=== PATIENT | male | born 1950 | race Caucasian/White ===

== ENCOUNTER 2016-11-22 09:28 | Inpatient (IN) | payer MEDICARE ==
[~2016-11-22] VITALS: Ht 177.8 cm; Wt 65.3 kg
[2016-11-22] VITALS (9 sets, daily range): BP systolic 120–196; BP diastolic 60–95; PULSE 96–125; RESP 15–24; TEMP 98.2–102.6; O2SAT 85–99
[~2016-11-22 09:28] MED LIST: ALLO100T PO; ASPI81TA19 PO; CALC668T PO; LEVO75TA3 PO; METO50TA PO; NIFE60TA58 PO; OXYC-396 PO; PHOSSOL5 PO; REST15CA PO; TRAM50TA PO
[2016-11-22] MEDS ORDERED: HYDROmorphone HCL PF 1 MG/ML VIAL IV PUSH ONE (12:00)
[2016-11-22] MEDS ORDERED: SODIUM CHLORIDE 0.9% FLUSH 5 ML FLUSH IVF PRN ×2 (12:00→15:45)
[2016-11-22] MEDS ORDERED: SODIUM CHLOR 0.9% 1000 ML INJ 1,000 ML IV ONE ×3 (12:00→12:10)
[2016-11-22] MEDS ORDERED: ONDANSETRON HCL 4 MG/2 ML VIAL IVP ONE (12:00)
[2016-11-22 12:05] LABS: AUTOMATED NEUTROPHIL # 18.9 TH/MM3 (1.8-7.7); BASOPHIL # 0.1 TH/MM3 (0-0.2); BASOPHIL % 0.4 % (0.0-2.0); EOSINOPHIL % 0.1 % (0.0-4.0); HEMATOCRIT 33.2 % (39.0-51.0); HEMO FLAGS DIFF FINAL; LYMPH % 2.3 % (9.0-44.0); LYMPHOCYTE # 0.5 TH/MM3 (1.0-4.8); MEAN CELL VOLUME 92.1 FL (80.0-100.0); MEAN CORPUSCULAR HEMOGLOBIN 29.4 PG (27.0-34.0); MEAN CORPUSCULAR HGB CONC 31.9 % (32.0-36.0); NEUT % 93.2 % (16.0-70.0); PLATELET COUNT 175 TH/MM3 (150-450); RED CELL DISTRIBUTION WIDTH 20.8 % (11.6-17.2); WHITE BLOOD COUNT 20.3 TH/MM3 (4.0-11.0)
[2016-11-22] MEDS ORDERED: SODIUM CHLOR 0.9% 1000 ML INJ 100 ML IV ONE (12:10)
[2016-11-22] MEDS ORDERED: PIPERACIL-TAZO 4.5 GM PREMIX 100 ML IV STA (12:11)
[2016-11-22] MEDS ORDERED: VANCOMYCIN INJ 1,000 MG in SODIUM CHLOR 0.9% 250 ML INJ 250 ML IV STA (12:11)
[2016-11-22 12:30] LABS: ALKALINE PHOSPHATASE 90 U/L (45-117); TOTAL BILIRUBIN ADULT 0.5 MG/DL (0.2-1.0)
[2016-11-22 12:32] LABS: ALT (GPT) 16 U/L (12-78); ANION GAP 10 MEQ/L (5-15); AST (GOT) 27 U/L (15-37); BICARBONATE 26.3 MEQ/L (21.0-32.0); BLOOD UREA NITROGEN 30 MG/DL (7-18); CHLORIDE 105 MEQ/L (98-107); GLOMERULAR FILTRATION RATE 12 ML/MIN (>89); SODIUM (NA) 141 MEQ/L (136-145)
[2016-11-22 12:34] LABS: POTASSIUM 5.9 MEQ/L (3.5-5.1)
--- NOTE | 2016-11-22 13:11 | PD ---
HPI Chief Complaint: GI Complaint Time Seen by Provider: 11:37 Travel History International Travel<30 days: No Contact w/Intl Traveler<30days: No Traveled to known affect area: No History of Present Illness HPI 65-year-old male with history of underlying vasculitis, end-stage renal disease on hemodialysis Friday//Friday here with complaint of abdominal pain. Patient states that every once in while his vasculitis flares up and he gets a burst of steroids. He was seen by his PCP approximately 2 weeks ago and placed on steroids. Patient had significant improvement. After the steroids finished he only had 2 days that were "normal" per family and for the last 3 days patient has not decompensated again. Family states that he does not appear well and has been somewhat confused. He has has had nausea, vomiting and has been unable to keep down his second course of steroids prescribed. No abnormal bowel movements. He notes generalized abdominal pain, nothing focal. No documented fevers. Patient has tunneled hemodialysis catheter, but states that he was instantly supposed to have this removed today as he is now having hemodialysis through his AV fistula. PFSH Past Medical History Hx Anticoagulant Therapy: Yes (ASA) Asthma: No Autoimmune Disease: No Blood Disorders: No Anxiety: Yes Depression: Yes Heart Rhythm Problems: No Cancer: No Cardiac Catheterization: Yes Cardiovascular Problems: Yes High Cholesterol: Yes Chest Pain: Yes Congestive Heart Failure: No COPD: No Cerebrovascular Accident: No Diabetes: No Dialysis: Yes (TRS) Diminished Hearing: No Endocrine: Yes (ESRD) Gastrointestinal Disorders: Yes (abd pain) GERD: No Genitourinary: Yes (renal failure, DIALYSIS ,,) Hepatitis: No Hiatal Hernia: No Hypertension: Yes Immune Disorder: No Kidney Stones: No Musculoskeletal: No Neurologic: No Psychiatric: No Reproductive: No Respiratory: No Myocardial Infarction: Yes Renal Failure: Yes (ESRD) Seizures: No Thyroid Disease: No Past Surgical History AICD: No Body Medical Devices: VAS CATH RIGHT CHEST left lower arm AV fistula Cholecystectomy: Yes Coronary Stent: Yes (3 STENTS 2004) Ear Surgery: No Endocrine Surgery: No Eye Surgery: No Genitourinary Surgery: No Gynecologic Surgery: No Joint Replacement: No Oral Surgery: No Pacemaker: No Thoracic Surgery: No Tonsillectomy: Yes Other Surgery: Yes (GALLBLADDER 25YRS AGO) Social History Alcohol Use: No Tobacco Use: No Substance Use: No Allergies-Medications (Allergen,Severity, Reaction): Coded Allergies: HMG-CoA Reductase Inhibitors (Verified Allergy, Severe, Joint Pain, ) Morphine (Verified Allergy, Severe, LOW BP, 09/09/16) Reported Meds & Prescriptions Reported Meds & Active Scripts Active Tramadol (Tramadol HCl) 50 Mg Tab 50 Mg PO Q6H PRN Reported Prednisone 10 Mg Tab 10 Mg PO DAILY Lyrica (Pregabalin) 50 Mg Cap 50 Mg PO BID Levothyroxine (Levothyroxine Sodium) 75 Mcg Tab 75 Mcg PO DAILY Metoprolol Tartrate 50 Mg Tab 50 Mg PO BID Nifedipine ER 24 HR (Nifedipine) 60 Mg Tab 60 Mg PO DAILY Calcium Acetate 668 Mg Tab 668 Mg PO DAILY Restoril (Temazepam) 15 Mg Cap 15 Mg PO HS PRN Aspir-Low (Aspirin) 81 Mg Tabdr 81 Mg PO DAILY Allopurinol 100 Mg Tab 100 Mg PO DAILY Oxycodone (Oxycodone HCl) 20 Mg Tab 20 Mg PO Q6H PRN Phoslyra Liq (Calcium Acetate (Phosphate Binder)) 667 Mg/5 Ml Soln 30 Ml PO TID take with each meal. Review of Systems Except as stated in HPI: all other systems reviewed are Neg Physical Exam Narrative GENERAL: Elderly male, ill-appearing in no acute distress SKIN: Warm and dry. HEAD: Normocephalic. EYES: No scleral icterus. No injection or drainage. ENT: Mucous membranes dry NECK: Supple CARDIOVASCULAR: Tachycardic with heart rates in the 120s to 130s. murmur RESPIRATORY: No accessory muscle use. Clear to auscultation. Breath sounds equal bilaterally. GASTROINTESTINAL: Abdomen soft, mild diffuse tenderness to palpation without rebound or guarding MUSCULOSKELETAL: Trace BLE edema. NEUROLOGICAL: Awake and alert. Motor grossly within normal limits. Normal speech. PSYCHIATRIC: Appropriate mood and affect; insight and judgment normal. Data Data Last Documented VS Vital Signs Date Time Temp Pulse Resp B/P Pulse Ox O2 Delivery O2 Flow Rate FiO2 11/22/16 13:42 92 Nasal Cannula 3 11/22/16 12:08 102.6 11/22/16 11:50 118 24 159/78 Orders Complete Blood Count With Diff (11/22/16 09:57) Comprehensive Metabolic Panel (11/22/16 09:57) Lipase (11/22/16 09:57) Lactic Acid Sepsis Protocol (11/22/16 11:57) Blood Culture (11/22/16 11:57) Chest, Single Ap (11/22/16 11:57) Sodium Chlor 0.9% 1000 Ml Inj (Ns 1000 M (11/22/16 12:00) Ct Abd/Pel W Iv Contrast(Rout) (11/22/16 11:57) Iv Access Insert/Monitor (11/22/16 11:57) Ecg Monitoring (11/22/16 11:57) Oximetry (11/22/16 11:57) Ondansetron Inj (Zofran Inj) (11/22/16 12:00) Sodium Chloride 0.9% Flush (Ns Flush) (11/22/16 12:00) Hydromorphone Pf Inj (Dilaudid Pf Inj) (11/22/16 12:00) Oral Contrast - Adult (11/22/16 12:03) Sodium Chlor 0.9% 1000 Ml Inj (Ns 1000 M (11/22/16 12:10) Sodium Chlor 0.9% 1000 Ml Inj (Ns 1000 M (11/22/16 12:10) Sodium Chlor 0.9% 1000 Ml Inj (Ns 1000 M (11/22/16 12:10) Vancomycin Inj (Vancomycin Inj) (11/22/16 12:11) Piperacil-Tazo 4.5 Gm Premix (Zosyn 4.5 (11/22/16 12:11) Consult Nephrology (11/22/16 ) Invasive Rad Dept Consult (11/22/16 ) Diatrizoate Liq ( Gastroview Liq) (11/22/16 13:51) Act Partial Throm Time (Ptt) (11/22/16 13:50) Prothrombin Time / Inr (Pt) (11/22/16 13:50) Admit Order (Ed Use Only) (11/22/16 14:23) Labs Laboratory Tests Test 11/22/16 11/22/16 11:40 12:20 White Blood Count 20.3 TH/MM3 Red Blood Count 3.60 MIL/MM3 Hemoglobin 10.6 GM/DL Hematocrit 33.2 % Mean Corpuscular Volume 92.1 FL Mean Corpuscular Hemoglobin 29.4 PG Mean Corpuscular Hemoglobin 31.9 % Concent Red Cell Distribution Width 20.8 % Platelet Count 175 TH/MM3 Mean Platelet Volume 9.4 FL Neutrophils (%) (Auto) 93.2 % Lymphocytes (%) (Auto) 2.3 % Monocytes (%) (Auto) 4.0 % Eosinophils (%) (Auto) 0.1 % Basophils (%) (Auto) 0.4 % Neutrophils # (Auto) 18.9 TH/MM3 Lymphocytes # (Auto) 0.5 TH/MM3 Monocytes # (Auto) 0.8 TH/MM3 Eosinophils # (Auto) 0.0 TH/MM3 Basophils # (Auto) 0.1 TH/MM3 CBC Comment DIFF FINAL Differential Comment Sodium Level 141 MEQ/L Potassium Level 5.9 MEQ/L Chloride Level 105 MEQ/L Carbon Dioxide Level 26.3 MEQ/L Anion Gap 10 MEQ/L Blood Urea Nitrogen 30 MG/DL Creatinine 4.86 MG/DL Estimat Glomerular Filtration 12 ML/MIN Rate Random Glucose 83 MG/DL Calcium Level 9.3 MG/DL Total Bilirubin 0.5 MG/DL Aspartate Amino Transf 27 U/L (AST/SGOT) Alanine Aminotransferase 16 U/L (ALT/SGPT) Alkaline Phosphatase 90 U/L Total Protein 7.3 GM/DL Albumin 3.0 GM/DL Lipase 119 U/L Lactic Acid Level 3.9 mmol/L MDM Medical Decision Making Medical Screen Exam Complete: Yes Emergency Medical Condition: Yes Medical Record Reviewed: Yes Differential Diagnosis 65-year-old male with history of underlying vasculitis, end-stage renal disease on hemodialysis Friday//Friday here with complaint of abdominal pain , generalized weakness. Differential includes line infection, bacteremia, sepsis, dehydration, electrolyte abnormality, gastritis, pancreatitis, hepatobiliary pathology, appendicitis, colitis, vasculitis flare, less likely mesenteric ischemia. Patient is immunosuppressed given his underlying vasculitis and steroid use. Narrative Course Patient placed on monitor, IV established and blood obtained. Patient noted to be febrile by a rectal temp, tachycardic. He was given 30 mg/kg normal saline bolus in covered empirically with vancomycin, Zosyn. Zofran and Dilaudid for symptom control. CBC, CMP, lipase, lactate, blood cultures obtained and notable for leukocytosis with 20.3, hemoglobin 10.6. BUN 30/creatinine 4.86 consistent with his known end-stage renal disease. Potassium slightly elevated at 5.9 though this was a hemolyzed specimen. Lactate elevated at 3.9. Patient does not make urine and therefore urinalysis was not obtained. I spoke with his tire retreader, Dr. Robertson, for notification the patient will likely be admitted. Invasive radiology was consulted to remove patient's tunneled hemodialysis catheter. CT of the abdomen and pelvis remains pending at the time this dictation. Portable chest x-ray was obtained that by my read shows evidence of bilateral pneumonia, right greater than left. Patient will be admitted to Dr. Chang's service for further management. Critical Care Narrative Aggregate critical care time was 65 minutes. Time to perform other separately billable procedures was not included in the critical care time. My time did not include minutes spent treating any other patients simultaneously or on activities that did not directly contribute to the patient's treatment. The services I provided to this patient were to treat and/or prevent clinically significant deterioration that could result in: Cardiopulmonary decompensation, , disability I provided critical care services requiring my management, as noted below: Chart data review, documentation time, medication orders and management, vital sign assessments/reviewing monitor data, ordering and reviewing lab tests, ordering and interpreting/reviewing x-rays and diagnostic studies, care of the patient and discussion of the patient with the admitting physicians. Sepsis Criteria SIRS Criteria (2 or more): Temp > 100.9 or < 96.8, Heart rate over 90, WBC > 28414, < 4000 or > 10% bands Sepsis Criteria (SIRS+source): Infect source susp/known Severe Sepsis (+one): Lactate >2 Criteria Outcome: Meets severe sepsis criteria Diagnosis Primary Impression: Severe sepsis Additional Impressions: Leukocytosis Qualified Code: D72.829 - Leukocytosis, unspecified type Hyperkalemia End stage renal disease Lactic acidosis Fever Qualified Code: R50.9 - Fever, unspecified fever cause Tachycardia Admitting Information Admitting Physician Requests: Admit Delphine Delgado MD Nov 22, 2016 13:11
--- NOTE | 2016-11-22 13:25 | RADRPT ---
EXAM DATE/TIME: 11/22/2016 12:27 [facility] COMPARISON: CHEST SINGLE AP, September 09, 2016, 15:50. INDICATIONS : Shortness of breath, weakness, nausea and vomiting, cough with phlegm. MEDICAL HISTORY : Dialysis March 2016. SURGICAL HISTORY : None. ENCOUNTER: Initial ACUITY: 2 days PAIN SCORE: 0/10 LOCATION: Bilateral chest FINDINGS: Significant air space disease has developed in both lung bases. There is central interstitial vascula r prominence and small bilateral effusions. The heart is stable in size. Tunneled dialysis catheter is noted in place. CONCLUSION: Significant bilateral airspace disease superimposed on pulmonary congestive changes. Small bilateral effusions Tunneled dialysis catheter Jose Smith MD on November 22, 2016 at 13:22 Board Certified Radiologist. This report was verified electronically.
[2016-11-22] MEDS ORDERED: DIATRIZOATE MEGLUM/DIATRIZOATE SOD 9 ML CUP ONE (13:51)
[2016-11-22 14:26] LABS: LACTIC ACID GHOST NOT REPORTABLE
--- NOTE | 2016-11-22 14:38 | MB ---
cc: GENESIS CANO MD DATE OF CONSULTATION: 11/22/2016 REASON FOR CONSULTATION End-stage renal disease on hemodialysis. 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 He came to the hospital because of abdominal pain, nausea and vomiting. I was called to see the patient for the management of dialysis. The patient has been on hemodialysis through a left arm AV fistula and he had dialysis done yesterday. The patient has this complaint of abdominal pain, off and on having nausea and vomiting, decreased appetite and generalized body pain. He has been getting many pain medications. Recently he was started on prednisone and after starting the prednisone his pain improved for one week but later on it came back and currently he was taking 10 mg of prednisone and I saw him yesterday in the dialysis clinic and I gave him diazepam for sleep. The patient went home after dialysis and last night and this morning he started vomiting and he also complaining of abdominal pain. He denies any fever but when he came in here it was found that he had a fever of 102.6. His WBC count was high at 20,000. The patient had a kidney biopsy in January 2016 and it showed that he has membranous glomerulopathy and he was given treatment for that, but his renal function got worse and he was eventually started on dialysis last year. He has had multiple admissions for different reasons. He has been seen by GI in the past and had endoscopy done. For hemodialysis they have been using his left arm AV fistula and his PermCath was supposed to be removed but it was not done so far because of him being sick and not going for the appointments, but he was quite compliant with his hemodialysis treatment. PAST MEDICAL HISTORY 1. Hypertension. 2. Ischemic heart disease. 3. Membranous glomerulonephritis. 4. End-stage renal disease on hemodialysis. 5. Chronic anemia. 6. History of chronic pain. PAST SURGICAL HISTORY 1. Left arm AV fistula surgery. 2. Thoracentesis. 3. Cholecystectomy. 4. Tonsillectomy. 5. Endoscopies. REVIEW OF SYSTEMS The patient has generalized weakness. He is not eating very well. His appetite is not very good. He has this nausea and vomiting going on since yesterday and has generalized colicky like abdominal pain with cramping. He denied any fever at home. He does not have any shortness of breath. No chest pain. No palpitations. SOCIAL HISTORY The patient is , lives with his . He has no history of smoking or alcoholism. FAMILY HISTORY Noncontributory. ALLERGIES 1. HMG-COA REDUCTASE INHIBITOR. 2. MORPHINE. MEDICATIONS Medication currently: He just got vancomycin and Zosyn. PHYSICAL EXAMINATION GENERAL: The patient is awake and alert. He is not in acute distress. VITAL SIGNS: Blood pressure 159/78, temperature 102.6, oxygen saturation on room air 85-98. HEENT: Pupils equally reacting to light. Non-icteric sclera. Conjunctiva pale. NECK: Supple. JVD is not elevated. LUNGS: The patient has bilateral decreased air entry with occasional wheezing. HEART: S1, S2, regular rhythm. ABDOMEN: Soft, lax. There is mild tenderness mainly in the epigastric area. There is no rebound rigidity. Bowel sounds positive. EXTREMITIES: He has only mild edema in the legs and left arm AV fistula with good bruit. INVESTIGATIONS WBC count is 20.3, hemoglobin 10.6, platelet count 175. Sodium 141, potassium 5.9, chloride 105, bicarb 26.3, BUN 30, creatinine 4.86, glucose 83, calcium 9.3, AST and ALT normal, total protein 7.38, albumin 3.0. INR is 1.1 but this was old. IMAGING STUDIES The patient has no recent imaging study done. ASSESSMENT 1. Fever, rule out sepsis. 2. Abdominal pain. 3. End-stage renal disease on hemodialysis. 4. Hyperkalemia. 5. Mild anemia. PLAN The patient has a fever and need to rule out line-related sepsis. He received vancomycin and Zosyn. Blood cultures will be done. I agree with removing the line. The AV fistula is working and he can have dialysis through AV fistula here tomorrow. Follow the culture results. He will also need work-up for his abdominal pain. He had a CT scan done in July of last year for the same reason of recurrent abdominal pain. Will need to consult GI. The patient will be followed over the weekend by Dr. Wesley Lake. Thank you for the consultation. Genesis Cano MD AQJ/BT /1:00 PM /2:16 PM
[2016-11-22] MEDS ORDERED: PRED10 PO (14:51)
[2016-11-22] MEDS ORDERED: LYRI50CA PO (14:51)
--- NOTE | 2016-11-22 14:56 | HHI.HP ---
HPI Service [facility] Hospitalists Primary Care Physician Roberto Mascorro MD Admission Diagnosis severe sepsis, pneumonia, vasculitis Chief Complaint: Abd pain Travel History International Travel<30 Days: No Contact w/Intl Traveler <30 Da: No Traveled to Known Affected Are: No History of Present Illness Mr. Lynne is a 65 WM well known to our service. 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 He presented to the ER at [facility] on 11/22/16 with complaints of abd pain, nausea and vomiting. He has had issues with abdominal pain, off and on having nausea and vomiting, decreased appetite and generalized body pain. Recently he was started on prednisone and after starting the prednisone his pain improved for one week but later while still taking it the pain came back. He was on Prednisone 10 mg on admission. He underwent dialysis yesterday without any issues. The patient went home after dialysis and last night and this morning he started vomiting and the abd pain worsened. He denies any fever but when he came in here it was found that he had a fever of 102.6. His WBC count was over 20,000. For hemodialysis they have been using his left arm AV fistula and his PermCath was supposed to be removed but it had not been done yet. There was concern for questionable pneumonia and effusions on CXR int he ER. Blood cultures were drawn in the ER. Pt was given Zosyn and Vancomycin in the ER. CT Abd/pelvis noted bilateral pleural effusions occupying approximately 1/4 of the left hemithorax with moderate interstitial edema. He was sent to radiology for Perm Cath removal and culture of the tip. Review of Systems Constitutional: COMPLAINS OF: Fever Gastrointestinal: COMPLAINS OF: Abdominal pain, Nausea, Vomiting Past Family Social History Past Medical History CAD/Prior [place]/Prior PTCA Dilated cardiomyopathy, 2D echo on 08-14-16 showed an EF of 55-60% grade 3 diastolic dysfunction. A myocardial perfusion scan on 08-15-16 showed no ischemia and a dilated cardiomyopathy with global hypokinesis and an EF of 21%. Hypertension Hyperlipidemia Osteoarthritis Cervical disc disease Mild carotid artery disease Pulmonary hypertension, 2D echo on 08-14-16 showed elevated pulmonary artery pressure of 56mm Hg ESRD on hemodialysis, biopsy on 01-29-16 showed membranous glomerulonephritis with almost 50% scarring in the tubulointerstitial and 20% glomerulosclerosis. 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 Hypothyroidism Vitamin D insufficiency Anemia of chronic kidney disease, gets Epogen at the dialysis center Chronic pain Past Surgical History Renal Biopsy 01/2016 PTCA with stent placement x 3 in 2004 Cholecystectomy Tonsillectomy Reported Medications Vitamin D3 (Cholecalciferol) 1,000 Unit Tab 1,000 Units PO DAILY Levothyroxine (Levothyroxine Sodium) 25 Mcg Tab 25 Mcg PO DAILY Hydroxyzine HCl 25 Mg Tab 25 Mg PO DAILY Tizanidine (Tizanidine HCl) 2 Mg Tab 2 Mg PO BID Lyrica (Pregabalin) 75 Mg Cap 75 Mg PO DAILY Temazepam 30 Mg Cap 30 Mg PO HS PRN Prednisone 10 Mg Tab 10 Mg PO DAILY Lyrica (Pregabalin) 50 Mg Cap 50 Mg PO BID Metoprolol Tartrate 50 Mg Tab 50 Mg PO BID Nifedipine ER 24 HR (Nifedipine) 60 Mg Tab 60 Mg PO DAILY Aspir-Low (Aspirin) 81 Mg Tabdr 81 Mg PO DAILY Allopurinol 100 Mg Tab 100 Mg PO DAILY Allergies: Coded Allergies: HMG-CoA Reductase Inhibitors (Verified Allergy, Severe, Joint Pain, ) Morphine (Verified Allergy, Severe, LOW BP, 09/09/16) Family History Noncontributory Social History Denies any alcohol, tobacco or illicit drug use Physical Exam Vital Signs Vital Signs Date Time Temp Pulse Resp B/P Pulse Ox O2 Delivery O2 Flow Rate FiO2 11/22/16 13:42 92 Nasal Cannula 3 11/22/16 12:08 102.6 11/22/16 11:50 118 24 159/78 85 Room Air 11/22/16 11:35 18 11/22/16 09:32 99.4 125 24 138/64 98 Physical Exam GENERAL: This is a well-nourished, well-developed patient, in no apparent distress. HEENT: Atraumatic. Normocephalic. No temporal or scalp tenderness. No scleral icterus. Airway patent. NECK: Trachea midline, supple, nontender. CARDIO: Regular. RESP: Decreased breath sounds at the bases ABD: +BS, soft, nondistended. EXT: Extremities without clubbing, cyanosis, or edema. NEURO: Awake and alert. Motor and sensory grossly within normal limits. Normal speech. Laboratory Laboratory Tests Test 11/22/16 11/22/16 11:40 12:20 White Blood Count 20.3 Red Blood Count 3.60 Hemoglobin 10.6 Hematocrit 33.2 Mean Corpuscular Volume 92.1 Mean Corpuscular Hemoglobin 29.4 Mean Corpuscular Hemoglobin 31.9 Concent Red Cell Distribution Width 20.8 Platelet Count 175 Mean Platelet Volume 9.4 Neutrophils (%) (Auto) 93.2 Lymphocytes (%) (Auto) 2.3 Monocytes (%) (Auto) 4.0 Eosinophils (%) (Auto) 0.1 Basophils (%) (Auto) 0.4 Neutrophils # (Auto) 18.9 Lymphocytes # (Auto) 0.5 Monocytes # (Auto) 0.8 Eosinophils # (Auto) 0.0 Basophils # (Auto) 0.1 CBC Comment DIFF FINAL Differential Comment Sodium Level 141 Potassium Level 5.9 Chloride Level 105 Carbon Dioxide Level 26.3 Anion Gap 10 Blood Urea Nitrogen 30 Creatinine 4.86 Estimat Glomerular Filtration 12 Rate Random Glucose 83 Calcium Level 9.3 Total Bilirubin 0.5 Aspartate Amino Transf 27 (AST/SGOT) Alanine Aminotransferase 16 (ALT/SGPT) Alkaline Phosphatase 90 Total Protein 7.3 Albumin 3.0 Lipase 119 Lactic Acid Level 3.9 Date/Time Procedure Status Source Growth 11/22/16 13:05 Aerobic Blood Culture Received Blood Peripheral Pending 11/22/16 13:05 Anaerobic Blood Culture Received Blood Peripheral Pending Result Diagram: 11/22/16 1140 11/22/16 1140 Imaging Last Impressions Chest X-Ray 11/22/16 1157 Signed Impressions: Service Date/Time: Tuesday, November 22, 2016 12:27 - CONCLUSION: Significant bilateral airspace disease superimposed on pulmonary congestive changes. Small bilateral effusions Tunneled dialysis catheter Jose Smith MD Septic Shock Reassessment Heart: Regular rate and rhythm Lungs: Diminished Skin: Warm Assessment and Plan Problem List: (1) Fever Status: Resolved Plan: - Pt admitted with nonspecific abd pain, nausea/vomiting and fever - WBC count at admission was over 20,000 - CXR with significant bilateral air space disease superimposed on pulmonary congestive changes, small bilateral effusions - CT Abd/pelvis --> bilateral pleural effusions occupying approximately 1/4 of the left hemithorax with moderate interstitial edema. - Blood cultures drawn in the ER - Pt was given Zosyn and Vancomycin in the ER - We will continue these antibiotics - Pt was sent to radiology for Perm Cath removal and culture of the tip. - Monitor labs and clinical status closely - CXR in AM - DVT prophylaxis (2) Abdominal pain Status: Acute Plan: - Etiology unclear - CT was negative - Pt does not produce urine so no UA checked - Pt eating and drinking ok - Will look up outpt records for any recent GI workup (3) End stage renal disease Status: Chronic Plan: - Pt follows with Dr. Robertson who has been consulted - He is on HD schedule - Permcath removed today in IR - Monitor labs (4) Leukocytosis Status: Acute Plan: - See above. (5) HTN (hypertension), benign Status: Chronic Plan: - Cont. home meds - Monitor (6) CAD (coronary artery disease) Status: Chronic Plan: - Cont. home meds (7) Hyperlipidemia Status: Chronic Plan: - Cont. home meds (8) Anemia Status: Chronic Plan: - Anemia secondary to chronic renal disease - Stable currently - Monitor Assessment and Plan Patient examined. Assessment and plan formulated with Mitra Marsh PA-C. I agree with the above. Pt vomiting with possible aspiration when I arrived on the floor (11/22/16). Pt suctioned with improvement. Pt transferred to ICU for closer observation. Pt with pleural effusion. Thoracentesis ordered. Physician Certification 2 Midnight Certification Type: Admission for Inpatient Services Order for Inpatient Services The services are ordered in accordance with Medicare regulations or non- Medicare payer requirements, as applicable. In the case of services not specified as inpatient-only, they are appropriately provided as inpatient services in accordance with the 2-midnight benchmark. Estimated LOS (days): 3 3 days is the estimated time the patient will need to remain in the hospital, assuming treatment plan goals are met and no additional complications. Post-Hospital Plan: Not yet determined Problem Qualifiers (1) Fever: Qualified Code: R50.9 - Fever, unspecified fever cause (2) Abdominal pain: Qualified Code: R10.9 - Abdominal pain, unspecified location (3) Leukocytosis: Qualified Code: D72.829 - Leukocytosis, unspecified type (4) Anemia: Mitra Marsh Nov 22, 2016 14:56 Cayetano Chang DO Nov 23, 2016 11:17
[2016-11-22] MEDS ORDERED: BISACODYL 10 MG SUPP PR PRN (15:00)
[2016-11-22] MEDS ORDERED: ACETAMINOPHEN 325 MG TAB PO PRN ×2 (15:00→15:45)
[2016-11-22] MEDS ORDERED: SODIUM CHLORIDE 0.9% FLUSH 5 ML FLUSH FLUSH PRN (15:00)
[2016-11-22] MEDS ORDERED: NALOXONE HCL 0.4 MG/ML AMP IV PRN (15:00)
[2016-11-22] MEDS ORDERED: ONDANSETRON HCL 4 MG/2 ML VIAL IVP PRN (15:00)
[2016-11-22] MEDS ORDERED: IOHEXOL 350 MG/ML 10 ML VIAL (for RAD DIAG) IV ONE (15:17)
[2016-11-22] MEDS ORDERED: SODIUM CHLOR 0.9% 1000 ML INJ 1,000 ML IV PRN ×3 (15:40)
[2016-11-22] MEDS ORDERED: NITROGLYCERIN 0.4 MG SL 25 TABS/BTL SL PRN (15:45)
[2016-11-22] MEDS ORDERED: diphenhydrAMINE HCL 25 MG CAP PO PRN (15:45)
[2016-11-22] MEDS ORDERED: HEPARIN SODIUM - IV 10,000 UNITS/10 ML VIAL IVF PRN (15:45)
[2016-11-22] MEDS ORDERED: cloNIDine HCL 0.1 MG TAB PO PRN (15:45)
[2016-11-22] MEDS ORDERED: MANNITOL 12.5 GM/50 ML VIAL IV PRN (15:45)
[2016-11-22] MEDS ORDERED: ALBUMIN HUMAN 25% 25 GM/100 ML BAGP IV PRN (15:45)
[2016-11-22] MEDS ORDERED: GENTAMICIN SULFATE (DIALYSIS USE ONLY) 20 MG/2 ML VIAL IV PRN (15:45)
[2016-11-22] MEDS ORDERED: HEPARIN SODIUM - IV 10,000 UNITS/10 ML VIAL PRN (15:45)
[2016-11-22] MEDS ORDERED: ONDANSETRON HCL 4 MG/2 ML VIAL IV PRN (15:45)
--- NOTE | 2016-11-22 15:56 | RADRPT ---
EXAM DATE/TIME: 11/22/2016 15:02 [facility] COMPARISON: No previous studies available for comparison. INDICATIONS : Abdominal pain with nausea and vomiting. IV CONTRAST: 66 cc Omnipaque 350 (iohexol) IV ORAL CONTRAST: Prescribed oral contrast ingested. RADIATION DOSE: 5.80 CTDIvol (mGy) MEDICAL HISTORY : Cardiovascular disease. Hypertension. Renal failure. Dialysis x3/week. SURGICAL HISTORY : None. ENCOUNTER: Initial ACUITY: 2 days PAIN SCALE: 3/10 LOCATION: Bilateral abdomen TECHNIQUE: Volumetric scanning of the abdomen and pelvis was performed. Using automated exposure control and adjustment of the mA and/or kV according to patient size, radiation dose was kept as low as reasonably achievable to obtain optimal diagnostic quality images. FINDINGS: There are small bilateral pleural effusions with moderate interstitial edema present. T here is no pericardial effusion. The liver is free of focal defects. Spleen and pancreas are unremarkable. Moderate vascular calcifi cations are noted. There is no ascites or adenopathy. In the pelvis there is no free fluid identified. Stomach is decompressed. There is no significant bowel dilatation. CONCLUSION: Bilateral pleural effusions occupying approximately one/quarter of the left hemithora x with moderate interstitial edema. Dhaval Rodriguez MD FACR on November 22, 2016 at 15:45 Board Certified Radiologist. This report was verified electronically.
[2016-11-22 16:08] LABS: APTT (PATIENT) 30.7 SEC (24.3-30.1); PROTHROMBIN TIME - PATIENT 11.2 SEC (9.8-11.6)
[2016-11-22] MEDS ORDERED: TIZA2TAB PO (16:37)
[2016-11-22] MEDS ORDERED: TEMA30CA PO (16:37)
[2016-11-22] MEDS ORDERED: LYRI75CA PO (16:37)
[2016-11-22] MEDS ORDERED: HYDR-3133 PO (16:37)
[2016-11-22] MEDS ORDERED: VITA100018 PO (16:39)
[2016-11-22] MEDS ORDERED: LEVO25TA4 PO (16:39)
[2016-11-22] MEDS ORDERED: SODIUM POLYSTYRENE SULFONATE SUSP 15 GM/60 ML CUP PO ONE (17:30)
[2016-11-22] MEDS ORDERED: LIDOCAINE 1%/EPINEPHrine 1:100,000 SOLN 20 ML VIAL ONE (18:19)
--- NOTE | 2016-11-22 19:33 | PD.RAD ---
Post Procedure Progress Note Pre Procedure Diagnosis: (1) Severe sepsis Post Procedure Diagnosis: (1) Severe sepsis Procedure Date: Nov 22, 2016 Supervising Radiologist: Hector Morrison Proceduralist/Assist: RT Carlee(R), RT Maria Eugenia(R)() Anesthesia: Local, Analgesia, Conscious Sedation Plan of Activity Patient to Unit: Nursing Unit Patient Condition: Fair See PACS Report for procedural detail/treatment Central Venous Access Device Procedure 1 Right Internal Jugular Hemodialysis Catheter Tunneled Removal dual lumen Hector Morrison MD Nov 22, 2016 19:33
[2016-11-22] MEDS: SODIUM CHLORIDE 0.9% FLUSH 5 ML FLUSH FLUSH SCH (21:03)
[2016-11-22] MEDS: METOPROLOL TARTRATE 50 MG TAB PO SCH (21:15)
[2016-11-22] MEDS ORDERED: Vancomycin Consult Pharmacy 1 EA OTHER SCH (22:30)
[2016-11-22] MEDS: PIPERACIL-TAZO 2.25 GM PREMIX 50 ML IV SCH ×2 (22:32→23:33)
[2016-11-23] VITALS (17 sets, daily range): BP systolic 121–165; BP diastolic 56–76; PULSE 58–94; RESP 15–25; TEMP 97.6–98.6; O2SAT 95–100
[2016-11-23] MEDS: LEVOTHYROXINE SODIUM 25 MCG TAB PO SCH (05:32)
[2016-11-23 06:32] LABS: BICARBONATE 24.7 MEQ/L (21.0-32.0); POTASSIUM 5.7 MEQ/L (3.5-5.1)
[2016-11-23 07:37] LABS: AUTOMATED NEUTROPHIL # 6.9 TH/MM3 (1.8-7.7); BASOPHIL # 0.1 TH/MM3 (0-0.2); BASOPHIL % 0.9 % (0.0-2.0); EOSINOPHIL # 0.1 TH/MM3 (0-0.4); EOSINOPHIL % 0.8 % (0.0-4.0); HEMATOCRIT 23.3 % (39.0-51.0); HEMO FLAGS DIFF FINAL; LYMPHOCYTE # 0.8 TH/MM3 (1.0-4.8); MEAN CELL VOLUME 94.6 FL (80.0-100.0); MEAN CORPUSCULAR HEMOGLOBIN 29.7 PG (27.0-34.0); MEAN CORPUSCULAR HGB CONC 31.4 % (32.0-36.0); MONO % 4.8 % (0.0-8.0); NEUT % 83.5 % (16.0-70.0); PLATELET COUNT 130 TH/MM3 (150-450); RED BLOOD COUNT 2.46 MIL/MM3 (4.50-5.90); RED CELL DISTRIBUTION WIDTH 20.3 % (11.6-17.2); WHITE BLOOD COUNT 8.3 TH/MM3 (4.0-11.0)
[2016-11-23] MEDS: PIPERACIL-TAZO 2.25 GM PREMIX 50 ML IV SCH ×3 (07:45→23:02)
[2016-11-23] MEDS: SODIUM CHLORIDE 0.9% FLUSH 5 ML FLUSH FLUSH SCH ×2 (07:51→21:04)
[2016-11-23] MEDS: ASPIRIN EC 81 MG TABEC PO SCH (08:07)
[2016-11-23] MEDS: CHOLECALCIFEROL (VIT D3) 1000 UNIT TAB PO SCH (08:07)
[2016-11-23] MEDS: METOPROLOL TARTRATE 50 MG TAB PO SCH ×2 (08:08→21:03)
[2016-11-23] MEDS: hydrOXYzine HCL 25 MG TAB PO SCH (08:08)
[2016-11-23] MEDS: NIFEdipine 60 MG SUSTAINED RELEASE TAB PO SCH (08:08)
[2016-11-23] MEDS: EPOETIN ALFA 10,000 UNITS/ML VIAL IV PRN (08:25)
[2016-11-23] MEDS: GELATIN 12 MM/7 MM FOAM TOP PRN (08:26)
[2016-11-23 10:58] LABS: HEMATOCRIT 24.5 % (39.0-51.0); MEAN CORPUSCULAR HEMOGLOBIN 29.9 PG (27.0-34.0); MEAN CORPUSCULAR HGB CONC 32.9 % (32.0-36.0); PLATELET COUNT 156 TH/MM3 (150-450); RED CELL DISTRIBUTION WIDTH 20.3 % (11.6-17.2); REVIEW FLAG FINAL; WHITE BLOOD COUNT 8.5 TH/MM3 (4.0-11.0)
[2016-11-23] MEDS ORDERED: VANCOMYCIN INJ 1,000 MG in SODIUM CHLOR 0.9% 250 ML INJ 250 ML IV ONE (11:00)
--- NOTE | 2016-11-23 11:04 | HHI.NPPN ---
Subjective Additional Remarks Patient seen on dialysis, tolerating HD well via AVF Objective Data Data 11/22/16 11/23/16 19:00 07:00 Intake Total 103 ml Output Total 0 ml Balance 103 ml Intake Oral 0 ml IV Total 103 ml Output Urine Total 0 ml Vital Signs Date Time Temp Pulse Resp B/P Pulse Ox O2 Delivery O2 Flow Rate FiO2 11/23/16 10:00 58 11/23/16 09:23 99 Nasal Cannula 2.00 11/23/16 08:00 60 11/23/16 08:00 97.6 70 22 133/63 100 11/23/16 07:00 98 Nasal Cannula 2.00 11/23/16 06:00 67 11/23/16 04:00 98.1 67 17 132/63 99 11/23/16 04:00 67 11/23/16 02:00 76 11/23/16 00:00 98.6 82 25 145/72 95 11/23/16 00:00 94 11/22/16 21:02 108 20 155/95 95 11/22/16 21:00 96 Nasal Cannula 3.00 11/22/16 20:50 98.2 117 20 196/85 91 11/22/16 19:08 96 15 137/68 99 Nasal Cannula 2 11/22/16 17:11 Nasal Cannula 3.00 11/22/16 15:52 105 18 120/60 96 Nasal Cannula 3 11/22/16 14:05 18 11/22/16 13:42 92 Nasal Cannula 3 11/22/16 12:08 102.6 11/22/16 11:50 118 24 159/78 85 Room Air 11/22/16 11:35 18 -: 11/23/16 0437 11/23/16 0437 Microbiology 11/22/16 Aerobic Blood Culture, Received Pending 11/22/16 Anaerobic Blood Culture, Received Pending 11/22/16 Aerobic Blood Culture, Received Pending 11/22/16 Anaerobic Blood Culture, Received Pending 11/22/16 Wound Culture, Received Pending Physical Exam General Appearance: No Acute Distress, Malnourished Throat Throat Exam: Oral Mucosa [place] & Moist Neck Neck Exam: Neck Supple Pulmonary Resp Exam: Diminished Breath Sounds Cardiology CV Exam: Regular Gastrointestinal/Abdomen GI Exam: Soft, Non-Tender Musculoskeletal MS Exam: Joints Intact Integumentary Skin Exam: Dry, Intact Extremeties Extremities Exam: No Edema Neurologic Neuro Exam: Alert, Awake, Oriented, Speech Clear Assessment/Plan Problem List: (1) End stage renal disease Plan: Patient seen on dialysis this morning, tolerated HD well via AV fistula. Volume status stable, plan for next HD Friday, continue HD TTS (2) Anemia Plan: Plan is for transfusion today, continue to monitor. (3) Severe sepsis Plan: Leukocytosis with temp 102.4 on admission. On Vancomycin and Zosyn, will give Vanco 1 gram IV today, then 1g IV with dialysis. Suspect possible tunneled HD catheter infection, which was removed yesterday. Current functioning AVF. Continue to follow cultures, catheter tip cultures (4) HTN (hypertension), benign Plan: BP stable, continue medications (5) Abdominal pain Plan: Unclear etiology, possibly due to pleural effusions? CT abdomen otherwise unremarkable, symptoms improved today Continue to monitor. (6) Pleural effusion Plan: For thoracentesis today Problem Qualifiers (1) Anemia: (2) Abdominal pain: Qualified Code: R10.9 - Abdominal pain, unspecified location Wesley Lake MD Nov 23, 2016 11:04
--- NOTE | 2016-11-23 11:31 | HHI.PR ---
Subjective Remarks No new complaints. No further vomiting since last night. SOB is improved. No fever or chills. Objective Vitals Vital Signs Date Time Temp Pulse Resp B/P Pulse Ox O2 Delivery O2 Flow Rate FiO2 11/23/16 10:00 58 11/23/16 09:23 99 Nasal Cannula 2.00 11/23/16 08:00 60 11/23/16 08:00 97.6 70 22 133/63 100 11/23/16 07:00 98 Nasal Cannula 2.00 11/23/16 06:00 67 11/23/16 04:00 98.1 67 17 132/63 99 11/23/16 04:00 67 11/23/16 02:00 76 11/23/16 00:00 98.6 82 25 145/72 95 11/23/16 00:00 94 11/22/16 21:02 108 20 155/95 95 11/22/16 21:00 96 Nasal Cannula 3.00 11/22/16 20:50 98.2 117 20 196/85 91 11/22/16 19:08 96 15 137/68 99 Nasal Cannula 2 11/22/16 17:11 Nasal Cannula 3.00 11/22/16 15:52 105 18 120/60 96 Nasal Cannula 3 11/22/16 14:05 18 11/22/16 13:42 92 Nasal Cannula 3 11/22/16 12:08 102.6 11/22/16 11:50 118 24 159/78 85 Room Air 11/22/16 11:35 18 11/22/16 11/22/16 11/23/16 15:00 23:00 07:00 Intake Total 103 ml Output Total 0 ml Balance 103 ml Intake Oral 0 ml IV Total 103 ml Output Urine Total 0 ml Result Diagram: 11/23/16 1045 11/23/16 0437 Imaging Last Impressions Chest X-Ray 11/22/16 1157 Signed Impressions: Service Date/Time: Tuesday, November 22, 2016 12:27 - CONCLUSION: Significant bilateral airspace disease superimposed on pulmonary congestive changes. Small bilateral effusions Tunneled dialysis catheter Jose Smith MD A/P Problem List: (1) Fever Status: Resolved Plan: - Pt admitted with nonspecific abd pain, nausea/vomiting and fever, now resolved - WBC count at admission was over 20,000, 8.5 (11/23/16) - CXR (11/23/16) with significant bilateral air space disease superimposed on pulmonary congestive changes, small bilateral effusions - CT Abd/pelvis --> bilateral pleural effusions occupying approximately 1/4 of the left hemithorax with moderate interstitial edema. - Blood cultures (11/22/16) --> pending - continue Zosyn and Vancomycin (dosing per nephrology) - PermCath removed (11/22/16) --> culture pending - DVT prophylaxis (2) Pleural effusion, bilateral Status: Acute Plan: - Pt to undergo right thoracentesis today, diagnostic and therapeutic, anticipate transudative fluid - will order diagnostic left thoracentesis for Friday (3) Abdominal pain Status: Acute Plan: - resolved - Etiology unclear - CT (11/22/16) --> negative - Pt does not produce urine so no UA checked - Pt eating and drinking ok - Will look up outpt records for any recent GI workup (4) End stage renal disease Status: Chronic Plan: - Pt follows with Dr. Robertson who has been consulted - He is on HD schedule - Permcath removed by IR (11/22/16) - Pt received HD today 11/23 and next HD 11/26 - Case d/w Dr. Lake (11/23/16) - Monitor labs (5) HTN (hypertension), benign Status: Chronic Plan: - Cont. home meds - Monitor (6) CAD (coronary artery disease) Status: Chronic Plan: - Cont. home meds (7) Hyperlipidemia Status: Chronic Plan: - Cont. home meds (8) Anemia Status: Chronic Plan: - Anemia secondary to chronic renal disease - Stable currently - Monitor Problem Qualifiers (1) Fever: Qualified Code: R50.9 - Fever, unspecified fever cause (2) Abdominal pain: Qualified Code: R10.9 - Abdominal pain, unspecified location (3) Anemia: Cayetano Chang DO Nov 23, 2016 11:31
[2016-11-23] MEDS ORDERED: LORazepam 2 MG/ML VIAL IV PUSH ONE ×2 (11:45→14:30)
[2016-11-23] MEDS ORDERED: HYDROmorphone HCL PF 1 MG/ML VIAL SQ ONE ×2 (11:45→14:30)
[2016-11-23] MEDS ORDERED: LIDOCAINE 1%/EPINEPHrine 1:100,000 SOLN 20 ML VIAL ONE (15:35)
--- NOTE | 2016-11-23 17:25 | RADRPT ---
EXAM DATE/TIME: 11/22/2016 00:00 [facility] COMPARISON: No previous studies available for comparison. INDICATIONS : Patient with possible infection in need of tunneled dialysis catheter removal. MEDICAL HISTORY : CAD with history of [place], HTN, hyperlipidemia, history of proteinuria, CKD, stage 2, osteoarthris, cerv ical disc disease SURGICAL HISTORY : PTCA with stent placement 2004, cholecystecomy,tonsillectomy ENCOUNTER: Subsequent ACUITY: 1 day PAIN SCORE: 0/10 PROCEDURE : 1. PermaCath removal. The risks, benefits and alternatives to the procedure were explained and verbal and written consent w as obtained. The site was prepped in sterile fashion. Full sterile technique was used, including ca p, mask, sterile gloves and gown and a large sterile sheet. Hand hygiene and 2% chlorhexidine and/or betadine/alcohol prep was utilized per protocol for cutaneous antisepsis. The skin and subcutaneous tissues were infiltrated with local anesthetic solution. The tract was anesthetized with 1% Lidocaine using. The Permcath was dissected from the subcutaneous tissues and easily removed in one piece. Manual pressure was applied to the venotomy site until hem ostasis was obtained. Sterile dressing was applied. The patient tolerated the procedure well and there were no complications. CONCLUSION: Uncomplicated Permcath removal. Hector Morrison MD on November 23, 2016 at 17:24 Board Certified Radiologist. This report was verified electronically.
--- NOTE | 2016-11-23 18:13 | RADRPT ---
EXAM DATE/TIME: 11/23/2016 16:58 [facility] COMPARISON: CHEST SINGLE AP, November 22, 2016, 12:27. CHEST SINGLE AP, August 13, 2016, 12:06. CHEST EXPIRATIO N ONLY, July 07, 2016, 14:57. INDICATIONS : Post chest tube placement. MEDICAL HISTORY : None. SURGICAL HISTORY : None. ENCOUNTER: Initial ACUITY: 1 day PAIN SCORE: 0/10 LOCATION: Bilateral chest FINDINGS: A single frontal expiratory view of the chest was performed. Persistent airspace disease bilaterally with interval improvement in the right-sided effusion. Patient's permcath catheter appears to been re moved. No pneumothorax post thoracentesis. Left-sided effusion persists. Heart size is prominent with mild interstitial prominence probably due to the expiratory technique. CONCLUSION: 1. No pneumothorax post right-sided thoracentesis. 2. There is some improving airspace disease in the right lower hemithorax with interval improvement o f the previously seen right-sided effusion. 3. Persistent left-sided effusion/atelectasis. Hector Morrison MD on November 23, 2016 at 18:07 Board Certified Radiologist. This report was verified electronically.
[2016-11-23 18:38] LABS: HEMATOCRIT 28.4 % (39.0-51.0); REVIEW FLAG FINAL
--- NOTE | 2016-11-23 18:56 | PD.RAD ---
Post CT Procedure Prog Note Pre Procedure Diagnosis: (1) Pleural effusion, bilateral Post Procedure Diagnosis: (1) Pleural effusion, bilateral Procedure Date: Nov 23, 2016 Supervising Radiologist: Hector Morrison Proceduralist/Assist: Tiffanie Armstrong, RT(R)(CT), Marco Hernandez RT(R)(CT) Anesthesia: Local Plan of Activity Patient to Unit: Nursing Unit Patient Condition: Good See PACS Report for procedural detail/treatment Drainage Procedure Procedure 1 Imaging Guidance: CT Side: Right Procedure Type: Thoracentesis Procedure: Placement ([id number]) Citizen Of [place]: 7 Drainage: Suction Fluid Removal (CCs): 1000 Fluid Description: Hector Webster MD Nov 23, 2016 18:56
--- NOTE | 2016-11-23 19:03 | RADRPT ---
EXAM DATE/TIME: 11/23/2016 16:22 INDICATIONS : Pleural effusion. DEVICE(S): 1.) 6 Fr [id number] FLUID: Total volume of 1000 cc of clear, yellow fluid was removed. Fluid was discarded. MEDICAL HISTORY : Cardiovascular disease. Myocardial infarction. Hypertension. Renal failure, inflammatory bowel diseas e. SURGICAL HISTORY : Coronary artery stent. Cholecystectomy. ENCOUNTER: Initial ACUITY: 1 day PAIN SCORE: 0/10 LOCATION: Right chest PROCEDURE: 1. CT guided right thoracentesis. The site was prepped in sterile fashion. Full sterile technique was used, including cap, mask, steri le gloves and gown and a large sterile sheet. Hand hygiene and 2% chlorhexidine and/or betadine/alco hol prep was utilized per protocol for cutaneous antisepsis. The skin and subcutaneous tissues were infiltrated with local anesthetic solution. With the patient supine on the CT table, manager drug safety images were obtained through the chest demonstrating t he right sided pleural effusion. Dermatotomy was made and the prescribed catheter was advanced into the pleural fluid. The pleural fluid as above was removed from the hemithorax. Post procedural scan showed reduction in the amount of fluid with no evidence of pneumothorax. Catheter was subsequently removed. The patient tolerated the procedure well and there were no complications. EKG and oximetry remained s table throughout the procedure. The patient was sent to recovery in stable condition. CONCLUSION: Uncomplicated CT-guided thoracentesis. Hector Morrison MD on November 23, 2016 at 19:01 Board Certified Radiologist. This report was verified electronically.
[2016-11-23] MEDS: TEMAZEPAM 15 MG CAP PO PRN (21:04)
[2016-11-24] VITALS (10 sets, daily range): BP systolic 120–138; BP diastolic 62–76; PULSE 65–75; RESP 16–20; TEMP 97.1–98.1; O2SAT 94–100
[2016-11-24 04:59] LABS: AUTOMATED NEUTROPHIL # 6.6 TH/MM3 (1.8-7.7); BASOPHIL # 0.1 TH/MM3 (0-0.2); BASOPHIL % 0.9 % (0.0-2.0); EOSINOPHIL # 0.2 TH/MM3 (0-0.4); EOSINOPHIL % 2.6 % (0.0-4.0); HEMO FLAGS DIFF FINAL; LYMPH % 7.5 % (9.0-44.0); LYMPHOCYTE # 0.6 TH/MM3 (1.0-4.8); MEAN CELL VOLUME 92.5 FL (80.0-100.0); MEAN CORPUSCULAR HEMOGLOBIN 29.8 PG (27.0-34.0); MEAN CORPUSCULAR HGB CONC 32.2 % (32.0-36.0); PLATELET COUNT 124 TH/MM3 (150-450); RED BLOOD COUNT 3.13 MIL/MM3 (4.50-5.90); RED CELL DISTRIBUTION WIDTH 18.5 % (11.6-17.2); WHITE BLOOD COUNT 7.9 TH/MM3 (4.0-11.0)
[2016-11-24] MEDS: LEVOTHYROXINE SODIUM 25 MCG TAB PO SCH (06:05)
[2016-11-24] MEDS: PIPERACIL-TAZO 2.25 GM PREMIX 50 ML IV SCH (06:05)
--- NOTE | 2016-11-24 06:48 | RADRPT ---
EXAM DATE/TIME: 11/24/2016 04:21 [facility] COMPARISON: CHEST SINGLE AP, November 22, 2016, 12:27. INDICATIONS : Shortness of breath. MEDICAL HISTORY : Hypertension. Cardiovascular disease. Myocardial infarction. SURGICAL HISTORY : Coronary artery stent. ENCOUNTER: Subsequent ACUITY: 3 days PAIN SCORE: Non-responsive. LOCATION: Bilateral chest FINDINGS: Persistent lobar consolidation in the left lower lobe with loss of delineation of left hemidiaphragm. Patchy areas of airspace opacity in the right mid and lower lung have improved since prior exam. T he heart is upper limits normal size. CONCLUSION: Persistent left lower lobar consolidation and slight improvement in the right lower lung infiltrates. Marcelino Mendoza MD on November 24, 2016 at 6:46 Board Certified Radiologist. This report was verified electronically.
[2016-11-24] MEDS: CHOLECALCIFEROL (VIT D3) 1000 UNIT TAB PO SCH (08:38)
[2016-11-24] MEDS: ASPIRIN EC 81 MG TABEC PO SCH (08:39)
[2016-11-24] MEDS: hydrOXYzine HCL 25 MG TAB PO SCH (08:39)
[2016-11-24] MEDS: METOPROLOL TARTRATE 50 MG TAB PO SCH ×2 (08:39→20:47)
[2016-11-24] MEDS: NIFEdipine 60 MG SUSTAINED RELEASE TAB PO SCH (08:39)
[2016-11-24] MEDS: SODIUM CHLORIDE 0.9% FLUSH 5 ML FLUSH FLUSH SCH ×2 (08:39→20:50)
--- NOTE | 2016-11-24 10:07 | HHI.NPPN ---
Subjective Additional Remarks Patient feels better today, s/p thoracentesis and dialysis yesterday Objective Data Data 11/23/16 11/24/16 19:00 07:00 Intake Total 1348 ml 480 ml Output Total 2000 ml 0 ml Balance -652 ml 480 ml Intake Oral 480 ml IV Total 848 ml Packed Cells 500 ml Output Urine Total 0 ml 0 ml Hemodialysis 2000 ml # Bowel Movements 0 0 Vital Signs Date Time Temp Pulse Resp B/P Pulse Ox O2 Delivery O2 Flow Rate FiO2 11/24/16 06:00 96 Room Air 11/24/16 06:00 67 11/24/16 04:00 98.1 65 16 131/63 98 11/24/16 04:00 65 11/24/16 02:00 67 11/24/16 00:00 67 11/24/16 00:00 98.0 67 20 120/76 100 11/23/16 22:00 65 11/23/16 20:00 98 Nasal Cannula 2.00 11/23/16 20:00 97.8 69 15 121/56 100 11/23/16 20:00 69 11/23/16 19:22 96 Nasal Cannula 2.00 11/23/16 18:00 63 11/23/16 17:59 97.8 59 16 147/67 100 11/23/16 16:00 59 11/23/16 14:00 69 11/23/16 13:40 97.6 67 24 165/76 100 11/23/16 13:00 98.1 71 17 152/69 98 11/23/16 12:00 59 11/23/16 12:00 98.0 59 18 147/68 97 11/23/16 10:00 58 -: 11/24/16 0402 11/23/16 0437 Physical Exam General Appearance: No Acute Distress, Malnourished Throat Throat Exam: Oral Mucosa [place] & Moist Neck Neck Exam: Neck Supple Pulmonary Resp Exam: Diminished Breath Sounds Cardiology CV Exam: Regular Gastrointestinal/Abdomen GI Exam: Soft, Non-Tender Musculoskeletal MS Exam: Joints Intact Integumentary Skin Exam: Dry, Intact Extremeties Extremities Exam: No Edema Neurologic Neuro Exam: Alert, Awake, Oriented, Speech Clear Assessment/Plan Problem List: (1) End stage renal disease Plan: Dialysis done yesterday, tolerated HD well via AV fistula. Fistula continues to develop, tunneled catheter was removed Friday Afebrile now. Volume status stable, plan for next HD Friday, continue HD TTS (2) Anemia Plan: Hgb 9 today, s/p transfusion. Continue Epogen with dialysis. (3) Severe sepsis Plan: Leukocytosis with temp 102.4 on admission. WBC 20 -> 7 now, afebrile. Suspect tunneled HD catheter infection, which was removed Friday. Current functioning AVF. Blood cultures negative to date, catheter tip culture with Staph species. On Vancomycin and Zosyn, Vancomycin 1g IV with dialysis. Consider to continue Vancomycin 1g IV with dialysis x 2 weeks, consider to d/c Zosyn (follow with primary team). (4) HTN (hypertension), benign Plan: BP stable, continue medications (5) Abdominal pain Plan: Unclear etiology, possibly due to pleural effusions? CT abdomen otherwise unremarkable, symptoms improved today Continue to monitor. (6) Pleural effusion Plan: s/p right thoracentesis with 1L fluid removal Planned left thoracentesis Friday Symptoms improved. Problem Qualifiers (1) Anemia: (2) Abdominal pain: Qualified Code: R10.9 - Abdominal pain, unspecified location Wesley Lake MD Nov 24, 2016 10:07
--- NOTE | 2016-11-24 17:02 | HHI.PR ---
Subjective Remarks No new complaints. No nausea. tolerating PO intake. Objective Vitals Vital Signs Date Time Temp Pulse Resp B/P Pulse Ox O2 Delivery O2 Flow Rate FiO2 11/24/16 14:15 Room Air 11/24/16 14:15 97.7 75 20 124/62 95 11/24/16 12:00 68 11/24/16 12:00 98.1 68 20 135/62 95 11/24/16 10:00 69 11/24/16 09:52 94 21 11/24/16 08:00 98.0 66 20 138/63 98 11/24/16 08:00 66 11/24/16 07:00 98 Room Air 11/24/16 06:00 96 Room Air 11/24/16 06:00 67 11/24/16 04:00 98.1 65 16 131/63 98 11/24/16 04:00 65 11/24/16 02:00 67 11/24/16 00:00 67 11/24/16 00:00 98.0 67 20 120/76 100 11/23/16 22:00 65 11/23/16 20:00 98 Nasal Cannula 2.00 11/23/16 20:00 97.8 69 15 121/56 100 11/23/16 20:00 69 11/23/16 19:22 96 Nasal Cannula 2.00 11/23/16 18:00 63 11/23/16 17:59 97.8 59 16 147/67 100 11/23/16 11/23/16 11/24/16 15:00 23:00 07:00 Intake Total 1348 ml 240 ml 240 ml Output Total 2000 ml 0 ml 0 ml Balance -652 ml 240 ml 240 ml Intake Oral 240 ml 240 ml IV Total 848 ml Packed Cells 500 ml Output Urine Total 0 ml 0 ml 0 ml Hemodialysis 2000 ml # Bowel Movements 0 0 0 Result Diagram: 11/24/16 0402 11/23/16 0437 Imaging Last Impressions Chest X-Ray 11/22/16 1157 Signed Impressions: Service Date/Time: Tuesday, November 22, 2016 12:27 - CONCLUSION: Significant bilateral airspace disease superimposed on pulmonary congestive changes. Small bilateral effusions Tunneled dialysis catheter Jose Smith MD Objective Remarks GENERAL: This is a well-nourished, well-developed patient, in no apparent distress. CARDIOVASCULAR: Regular rate and rhythm without murmurs, gallops, or rubs. RESPIRATORY: Clear to auscultation. Breath sounds equal bilaterally. No wheezes , rales, or rhonchi. GASTROINTESTINAL: Abdomen soft, non-tender, nondistended. Normal active bowel sounds MUSCULOSKELETAL: Extremities without clubbing, cyanosis, or edema. NEURO: Alert & Oriented x4 to person, place, time, situation. Moves all ext x4 A/P Problem List: (1) Bacteremia associated with intravascular line Status: Acute Plan: - Cx of Permcath tip growing staphylococcus species - Pt admitted with nonspecific abd pain, nausea/vomiting and fever, now resolved - WBC count at admission was over 20,000, 8.5 (11/23/16), 7.9 (11/24/16) - CXR (11/24/16) persistent LLL consolidation - CT Abd/pelvis --> bilateral pleural effusions occupying approximately 1/4 of the left hemithorax with moderate interstitial edema. - Blood cultures (11/22/16) --> NO growth at 2 days - Vancomycin - DVT prophylaxis (2) Pleural effusion, bilateral Status: Acute Plan: - right thoracentesis (11/23/16) --> 1,000ml removed - left thoracentesis ordered for 11/25/16 (3) Abdominal pain Status: Acute Plan: - resolved - Etiology unclear - CT (11/22/16) --> negative - Pt does not produce urine so no UA checked - Pt eating and drinking ok - Will look up outpt records for any recent GI workup (4) End stage renal disease Status: Chronic Plan: - Pt follows with Dr. Robertson who has been consulted - He is on HD schedule - Permcath removed by IR (11/22/16) - Pt received HD today 11/23 and next HD 11/26 - Case d/w Dr. Lake (11/23/16) - Monitor labs (5) HTN (hypertension), benign Status: Chronic Plan: - Cont. home meds - Monitor (6) CAD (coronary artery disease) Status: Chronic Plan: - Cont. home meds (7) Hyperlipidemia Status: Chronic Plan: - Cont. home meds (8) Anemia Status: Chronic Plan: - Anemia secondary to chronic renal disease - Stable currently - Monitor Problem Qualifiers (1) Abdominal pain: Qualified Code: R10.9 - Abdominal pain, unspecified location (2) Anemia: Cayetano Chang DO Nov 24, 2016 17:02
[2016-11-24] MEDS ORDERED: HYDROmorphone HCL PF 1 MG/ML VIAL IV PUSH ONE (17:15)
[2016-11-24] MEDS ORDERED: LORazepam 2 MG/ML VIAL IV PUSH ONE (17:15)
[2016-11-24] MEDS: TEMAZEPAM 15 MG CAP PO PRN (22:15)
[2016-11-25] VITALS (10 sets, daily range): BP systolic 119–166; BP diastolic 64–82; PULSE 69–93; RESP 17–22; TEMP 96.9–98; O2SAT 92–97
[2016-11-25 05:54] LABS: BASOPHIL # 0.1 TH/MM3 (0-0.2); BASOPHIL % 1.3 % (0.0-2.0); EOSINOPHIL # 0.3 TH/MM3 (0-0.4); EOSINOPHIL % 4.3 % (0.0-4.0); HEMATOCRIT 30.5 % (39.0-51.0); HEMO FLAGS DIFF FINAL; LYMPH % 10.4 % (9.0-44.0); LYMPHOCYTE # 0.7 TH/MM3 (1.0-4.8); MEAN CELL VOLUME 89.9 FL (80.0-100.0); MEAN CORPUSCULAR HEMOGLOBIN 29.8 PG (27.0-34.0); MEAN CORPUSCULAR HGB CONC 33.1 % (32.0-36.0); MONO % 5.9 % (0.0-8.0); NEUT % 78.1 % (16.0-70.0); PLATELET COUNT 146 TH/MM3 (150-450); RED BLOOD COUNT 3.39 MIL/MM3 (4.50-5.90); RED CELL DISTRIBUTION WIDTH 18.2 % (11.6-17.2); WHITE BLOOD COUNT 6.4 TH/MM3 (4.0-11.0)
[2016-11-25 06:24] LABS: ALKALINE PHOSPHATASE 59 U/L (45-117); ALT (GPT) 12 U/L (12-78); ANION GAP 9 MEQ/L (5-15); AST (GOT) 7 U/L (15-37); BLOOD UREA NITROGEN 33 MG/DL (7-18); CHLORIDE 106 MEQ/L (98-107); GLOMERULAR FILTRATION RATE 9 ML/MIN (>89); POTASSIUM 3.5 MEQ/L (3.5-5.1); SODIUM (NA) 143 MEQ/L (136-145); TOTAL BILIRUBIN ADULT 0.4 MG/DL (0.2-1.0)
[2016-11-25] MEDS: LEVOTHYROXINE SODIUM 25 MCG TAB PO SCH (06:29)
[2016-11-25] MEDS: ASPIRIN EC 81 MG TABEC PO SCH (09:00)
[2016-11-25] MEDS: CHOLECALCIFEROL (VIT D3) 1000 UNIT TAB PO SCH (09:09)
[2016-11-25] MEDS: NIFEdipine 60 MG SUSTAINED RELEASE TAB PO SCH (09:09)
[2016-11-25] MEDS: METOPROLOL TARTRATE 50 MG TAB PO SCH ×2 (09:09→21:01)
[2016-11-25] MEDS: hydrOXYzine HCL 25 MG TAB PO SCH (09:10)
[2016-11-25] MEDS: SODIUM CHLORIDE 0.9% FLUSH 5 ML FLUSH FLUSH SCH ×2 (09:10→21:01)
[2016-11-25] MEDS ORDERED: BENZONATATE 100 MG CAP PO PRN (10:00)
--- NOTE | 2016-11-25 10:15 | HHI.PR ---
Subjective Remarks Pt reports that he was coughing all night and didn't sleep much at all He has been afebrile. Pt is on RA and saturating well. He is concerned about pain with the thoracentesis today Objective Vitals Vital Signs Date Time Temp Pulse Resp B/P Pulse Ox O2 Delivery O2 Flow Rate FiO2 11/25/16 08:00 97.6 83 17 159/77 95 11/25/16 07:57 97 21 11/25/16 07:55 Room Air 2.00 21 11/25/16 04:00 96.9 78 22 152/72 93 11/25/16 00:00 97.8 78 20 139/73 97 11/24/16 20:45 Room Air 2.00 21 11/24/16 16:00 97.1 72 20 132/62 94 11/24/16 14:15 Room Air 11/24/16 14:15 97.7 75 20 124/62 95 11/24/16 12:00 68 11/24/16 12:00 98.1 68 20 135/62 95 11/24/16 11/24/16 11/25/16 15:00 23:00 07:00 Intake Total 240 ml 120 ml Output Total 0 ml Balance 240 ml 120 ml Intake Oral 240 ml 120 ml IV Total 0 ml Output Urine Total 0 ml # Voids 0 # Bowel Movements 0 Result Diagram: 11/25/16 0511 11/25/16 0511 Other Results Laboratory Tests Test 11/23/16 11/23/16 11/23/16 11/24/16 10:45 11:37 18:03 04:02 White Blood Count 8.5 TH/MM3 7.9 TH/MM3 Red Blood Count 2.70 MIL/MM3 3.13 MIL/MM3 Hemoglobin 8.1 GM/DL 9.2 GM/DL 9.3 GM/DL Hematocrit 24.5 % 28.4 % 29.0 % Mean Corpuscular Volume 91.0 FL 92.5 FL Mean Corpuscular Hemoglobin 29.9 PG 29.8 PG Mean Corpuscular Hemoglobin 32.9 % 32.2 % Concent Red Cell Distribution Width 20.3 % 18.5 % Platelet Count 156 TH/MM3 124 TH/MM3 Mean Platelet Volume 8.7 FL 9.5 FL Blood Type O POSITIVE Antibody Screen NEGATIVE Crossmatch Leukocyte-Reduced Red Blood Cells Blood Bank Comment Neutrophils (%) (Auto) 84.0 % Lymphocytes (%) (Auto) 7.5 % Monocytes (%) (Auto) 5.0 % Eosinophils (%) (Auto) 2.6 % Basophils (%) (Auto) 0.9 % Neutrophils # (Auto) 6.6 TH/MM3 Lymphocytes # (Auto) 0.6 TH/MM3 Monocytes # (Auto) 0.4 TH/MM3 Eosinophils # (Auto) 0.2 TH/MM3 Basophils # (Auto) 0.1 TH/MM3 CBC Comment DIFF FINAL Differential Comment Test 11/25/16 05:11 White Blood Count 6.4 TH/MM3 Red Blood Count 3.39 MIL/MM3 Hemoglobin 10.1 GM/DL Hematocrit 30.5 % Mean Corpuscular Volume 89.9 FL Mean Corpuscular Hemoglobin 29.8 PG Mean Corpuscular Hemoglobin 33.1 % Concent Red Cell Distribution Width 18.2 % Platelet Count 146 TH/MM3 Mean Platelet Volume 9.1 FL Neutrophils (%) (Auto) 78.1 % Lymphocytes (%) (Auto) 10.4 % Monocytes (%) (Auto) 5.9 % Eosinophils (%) (Auto) 4.3 % Basophils (%) (Auto) 1.3 % Neutrophils # (Auto) 5.0 TH/MM3 Lymphocytes # (Auto) 0.7 TH/MM3 Monocytes # (Auto) 0.4 TH/MM3 Eosinophils # (Auto) 0.3 TH/MM3 Basophils # (Auto) 0.1 TH/MM3 CBC Comment DIFF FINAL Differential Comment Sodium Level 143 MEQ/L Potassium Level 3.5 MEQ/L Chloride Level 106 MEQ/L Carbon Dioxide Level 28.0 MEQ/L Anion Gap 9 MEQ/L Blood Urea Nitrogen 33 MG/DL Creatinine 6.10 MG/DL Estimat Glomerular Filtration 9 ML/MIN Rate Random Glucose 79 MG/DL Calcium Level 8.3 MG/DL Total Bilirubin 0.4 MG/DL Aspartate Amino Transf 7 U/L (AST/SGOT) Alanine Aminotransferase 12 U/L (ALT/SGPT) Alkaline Phosphatase 59 U/L Total Protein 5.5 GM/DL Albumin 2.1 GM/DL Imaging Last Impressions Chest X-Ray 11/22/16 1157 Signed Impressions: Service Date/Time: Tuesday, November 22, 2016 12:27 - CONCLUSION: Significant bilateral airspace disease superimposed on pulmonary congestive changes. Small bilateral effusions Tunneled dialysis catheter Jose F. Luis, MD Objective Remarks General: NAD, AAOx3 Chest: Crackles at the left base Cardiac: Regular Abd: +BS, soft ND/NT Ext: No edema A/P Problem List: (1) Bacteremia associated with intravascular line Status: Acute Plan: - Cx of Permcath tip growing staphylococcus species, final culture and susceptibilities to follow. - Pt admitted with nonspecific abd pain, nausea/vomiting and fever, now resolved - WBC count at admission was over 20,000 --> 8.5 (11/23/16) --> 7.9 (11/24/16) -- > 6.4 (11/25) - CXR (11/24/16) persistent LLL consolidation - CT Abd/pelvis --> bilateral pleural effusions occupying approximately 1/4 of the left hemithorax with moderate interstitial edema. - Pt s/p right sided thoracentesis on 11/23 with removal of 1,000mL of clear, yellow fluid. - Pt has left sided thoracentesis planned for today. - Blood cultures (11/22/16) --> NO growth at 2 days - Vancomycin - DVT prophylaxis (2) Pleural effusion, bilateral Status: Acute Plan: - right thoracentesis (11/23/16) --> 1,000ml removed - left thoracentesis ordered for today (3) Abdominal pain Status: Acute Plan: - resolved - Etiology unclear - CT (11/22/16) --> negative - Pt does not produce urine so no UA checked - Pt eating and drinking ok (4) End stage renal disease Status: Chronic Plan: - Pt follows with Dr. Robertson who has been consulted - He is on HD schedule - Permcath removed by IR (11/22/16) - Pt received HD 11/23 and next HD 11/26 - Monitor labs (5) HTN (hypertension), benign Status: Chronic Plan: - Cont. home meds - Monitor (6) CAD (coronary artery disease) Status: Chronic Plan: - Cont. home meds (7) Hyperlipidemia Status: Chronic Plan: - Cont. home meds (8) Anemia Status: Chronic Plan: - Anemia secondary to chronic renal disease - Stable currently - Monitor Assessment and Plan Patient examined. Assessment and plan formulated with Mitra Maximo PA-C. I agree with the above. staph infected permcath. removed. HD from avf. vanco with HD outpt planned sp thoracentesis bilaterally persistent cough/congestion.?pna. mucomyst/nebs/abx. sputum cx. Problem Qualifiers (1) Abdominal pain: Qualified Code: R10.9 - Abdominal pain, unspecified location (2) Anemia: Mitra Marsh Nov 25, 2016 10:15 Francois Woo MD Nov 25, 2016 21:33
[2016-11-25] MEDS: guaiFENesin SOLUTION 200 MG/10 ML CUP PO PRN ×3 (11:06→21:01)
--- NOTE | 2016-11-25 12:12 | HHI.NPPN ---
Subjective Additional Remarks Patient feels better today, no specific complaints. Dialysis done through left forearm AVF on Friday. Objective Data Data 11/24/16 11/25/16 19:00 07:00 Intake Total 360 ml Output Total 0 ml Balance 360 ml Intake Oral 360 ml IV Total 0 ml Output Urine Total 0 ml # Voids 0 # Bowel Movements 0 Vital Signs Date Time Temp Pulse Resp B/P Pulse Ox O2 Delivery O2 Flow Rate FiO2 11/25/16 08:00 97.6 83 17 159/77 95 11/25/16 07:57 97 21 11/25/16 07:55 Room Air 2.00 21 11/25/16 04:00 96.9 78 22 152/72 93 11/25/16 00:00 97.8 78 20 139/73 97 11/24/16 20:45 Room Air 2.00 21 11/24/16 16:00 97.1 72 20 132/62 94 11/24/16 14:15 Room Air 11/24/16 14:15 97.7 75 20 124/62 95 -: 11/25/16 0511 11/25/16 0511 Physical Exam General Appearance: No Acute Distress, Malnourished Throat Throat Exam: Oral Mucosa [place] & Moist Neck Neck Exam: Neck Supple Pulmonary Resp Exam: Diminished Breath Sounds Cardiology CV Exam: Regular Gastrointestinal/Abdomen GI Exam: Soft, Non-Tender Musculoskeletal MS Exam: Joints Intact Integumentary Skin Exam: Dry, Intact Extremeties Extremities Exam: No Edema Neurologic Neuro Exam: Alert, Awake, Oriented, Speech Clear Assessment/Plan Problem List: (1) End stage renal disease Plan: Plan on dialysis tomorrow 11/26/16. Fistula continues to develop, tunneled catheter was removed Friday Afebrile now. Volume status stable. (2) Anemia Plan: Improved Hemoglobin after transfusion. Continue Epogen with dialysis. (3) Severe sepsis Plan: Leukocytosis with temp 102.4 on admission. Now afebrile. Suspect tunneled HD catheter infection, which was removed Friday. Current functioning AVF. Catheter tip grew Staph species. continue Vancomycin which can be given at dialysis. (4) HTN (hypertension), benign Plan: BP stable, continue medications (5) Abdominal pain Plan: Unclear etiology, possibly due to pleural effusions? CT abdomen otherwise unremarkable, symptoms improved today Continue to monitor. (6) Pleural effusion Plan: s/p right thoracentesis with 1L fluid removal Planned left thoracentesis today. Symptoms improved. Problem Qualifiers (1) Anemia: (2) Abdominal pain: Qualified Code: R10.9 - Abdominal pain, unspecified location Flako Shelton MD Nov 25, 2016 12:12
[2016-11-25] MEDS: HYDROmorphone HCL PF 1 MG/ML VIAL IV PRN (13:29)
--- NOTE | 2016-11-25 15:34 | RADRPT ---
EXAM DATE/TIME: 11/25/2016 14:46 [facility] COMPARISON: CHEST SINGLE AP, November 24, 2016, 4:21. INDICATIONS : Post thoracentesis. MEDICAL HISTORY : Hypertension. Cardiovascular disease. Myocardial infarction. SURGICAL HISTORY : Coronary artery stent. ENCOUNTER: Subsequent ACUITY: 2 days PAIN SCORE: 0/10 LOCATION: Bilateral chest FINDINGS: The exam demonstrates patchy bilateral infiltrate most significant at the right lung base these are c oncerning for pneumonia. No pneumothorax is seen. The visualized bony structures are grossly intact. CONCLUSION: 1. No pneumothorax identified. 2. Patchy bibasilar infiltrates concerning for pneumonia. Wesley Rodriguez MD on November 25, 2016 at 15:32 Board Certified Radiologist. This report was verified electronically.
--- NOTE | 2016-11-25 16:53 | RADRPT ---
EXAM DATE/TIME: 11/25/2016 13:28 [facility] COMPARISON: US GUIDED THORACENTESIS LEFT, July 06, 2016, 8:28. INDICATIONS : Left pleural effusion. MEDICAL HISTORY : Myocardial infarction. Hypercholesterolemia. Hypertension. UTI. SURGICAL HISTORY : Tonsillectomy. Cholecystectomy. Dialysis. ENCOUNTER: Initial ACUITY: 1 day PAIN SCORE: 2/10 LOCATION: Left chest FLUID: Total volume of 1000 cc of clear, yellow fluid was removed. Fluid was discarded. Thoracentesis was therapeutic only. Post procedure scanning reveals no hematoma or other complication. TECHNIQUE: 1. Ultrasound guidance for thoracentesis. 2. Thoracentesis. The risks, benefits, and alternatives to ultrasound guided thoracentesis were explained to the patien t in lay simple terms, including the risk of bleeding and infection. Written and verbal informed con sent was obtained. Appropriate area for thoracentesis was marked under ultrasound guidance with the patient in the uprig ht position. Overlying skin was prepped and draped in the usual sterile fashion and with local anest hetic, a dermatotomy was made with an 11 blade scalpel. A 6 [place] thoracentesis catheter was placed in the pleural space and fluid was removed. Catheter was then removed and a sterile dressing applie d. There were no immediate complications. The patient tolerated the procedure well and the left the ultrasound suite in stable condition. Chest radiograph is to be obtained. CONCLUSION: Uncomplicated ultrasound guided thoracentesis. Dhaval Rodriguez MD FACR on November 25, 2016 at 16:51 Board Certified Radiologist. This report was verified electronically.
[2016-11-25] MEDS: LEVOFLOXACIN 250 MG PREMIX INJ 50 ML IV SCH (21:00)
[2016-11-25] MEDS: TEMAZEPAM 15 MG CAP PO PRN (21:01)
--- NOTE | 2016-11-25 22:50 | EKG ---
Date Performed: 11/22/2016 Time Performed: 19:23:15 PTAGE: 65 years EKG: Sinus rhythm MARKED LEFT AXIS DEVIATION RIGHT BUNDLE BRANCH BLOCK SEPTAL MYOCARDIAL INFARCTION MODERATE T-WAVE AB NORMALITY, CONSIDER LATERAL ISCHEMIA ABNORMAL ECG PREVIOUS TRACING : 09/09/2016 16.32 Compared to the previous tracing, rate has decreased with less ST/T wave changes noted DOCTOR: Jeff Arauz Interpretating Date/Time 11/25/2016 22:48:35
[2016-11-26] VITALS: BP 149/76; PULSE 84; RESP 16; TEMP 97.4; O2SAT 94
[2016-11-26] MEDS: RESP: ACETYLCYSTEINE 10% 30 ML NEB NEB SCH ×7 (02:36→23:49)
[2016-11-26] MEDS: RESP: ALBUTEROL 2.5 MG/IPRATROPIUM 0.5 MG NEB (SCH) NEB ×6 (02:36→23:51)
[2016-11-26 02:43] VITALS: O2SAT 93
[2016-11-26 05:34] LABS: AUTOMATED NEUTROPHIL # 5.4 TH/MM3 (1.8-7.7); BASOPHIL # 0.1 TH/MM3 (0-0.2); BASOPHIL % 1.4 % (0.0-2.0); EOSINOPHIL # 0.2 TH/MM3 (0-0.4); EOSINOPHIL % 2.7 % (0.0-4.0); HEMATOCRIT 32.4 % (39.0-51.0); HEMO FLAGS DIFF FINAL; LYMPH % 11.4 % (9.0-44.0); LYMPHOCYTE # 0.8 TH/MM3 (1.0-4.8); MEAN CELL VOLUME 89.5 FL (80.0-100.0); MEAN CORPUSCULAR HGB CONC 33.5 % (32.0-36.0); MONO % 6.4 % (0.0-8.0); NEUT % 78.1 % (16.0-70.0); PLATELET COUNT 146 TH/MM3 (150-450); RED BLOOD COUNT 3.62 MIL/MM3 (4.50-5.90); RED CELL DISTRIBUTION WIDTH 17.7 % (11.6-17.2); WHITE BLOOD COUNT 6.9 TH/MM3 (4.0-11.0)
[2016-11-26] MEDS: LEVOTHYROXINE SODIUM 25 MCG TAB PO SCH (05:38)
[2016-11-26 06:24] LABS: BICARBONATE 27.3 MEQ/L (21.0-32.0); MAGNESIUM 1.9 MG/DL (1.5-2.5); POTASSIUM 3.9 MEQ/L (3.5-5.1)
[2016-11-26 08:00] VITALS: BP 149/72; PULSE 77; RESP 18; TEMP 97.9; O2SAT 97
[2016-11-26] MEDS: CHOLECALCIFEROL (VIT D3) 1000 UNIT TAB PO SCH (08:57)
[2016-11-26] MEDS: METOPROLOL TARTRATE 50 MG TAB PO SCH ×2 (08:58→21:16)
[2016-11-26] MEDS: ASPIRIN EC 81 MG TABEC PO SCH (08:58)
[2016-11-26] MEDS: hydrOXYzine HCL 25 MG TAB PO SCH (08:58)
[2016-11-26] MEDS: NIFEdipine 60 MG SUSTAINED RELEASE TAB PO SCH (08:58)
[2016-11-26] MEDS: SODIUM CHLORIDE 0.9% FLUSH 5 ML FLUSH FLUSH SCH ×2 (08:59→21:16)
[2016-11-26] MEDS: VANCOMYCIN INJ 1,000 MG in SODIUM CHLOR 0.9% 250 ML INJ 250 ML IV SCH (12:47)
[2016-11-26] MEDS: GELATIN 12 MM/7 MM FOAM TOP PRN (12:48)
[2016-11-26] MEDS: EPOETIN ALFA 10,000 UNITS/ML VIAL IV PRN (12:48)
[2016-11-26 16:20] VITALS: O2SAT 97
--- NOTE | 2016-11-26 17:19 | HHI.NPPN ---
Subjective Renal Failure: Chronic Interval History Seen during dialysis. Had thoracentesis yesterday. (Joaquina Alexandra) Review of Systems Respiratory Lungs: SOB, Cough (Joaquina Alexandra) Objective Data Data 11/25/16 11/26/16 19:00 07:00 Intake Total 120 ml 480 ml Output Total 0 ml Balance 120 ml 480 ml Intake Oral 120 ml 480 ml Output Urine Total 0 ml # Voids 0 # Bowel Movements 0 0 Vital Signs Date Time Temp Pulse Resp B/P Pulse Ox O2 Delivery O2 Flow Rate FiO2 11/26/16 16:20 97 Nasal Cannula 2.00 11/26/16 08:34 Nasal Cannula 2.00 11/26/16 08:00 97.9 77 18 149/72 97 11/26/16 02:43 93 Nasal Cannula 2.00 11/26/16 00:00 97.4 84 16 149/76 94 11/25/16 20:00 98.0 93 18 166/82 92 11/25/16 20:00 88 (Joaquina Alexandra) -: 11/26/16 0425 11/26/16 0425 Imaging Last 72 hours Impressions Thoracentesis Ultrasound 11/25/16 0800 Signed Impressions: Service Date/Time: Friday, November 25, 2016 13:28 - CONCLUSION: Uncomplicated ultrasound guided thoracentesis. Dhaval Rodriguez MD FACR Chest X-Ray 11/25/16 0000 Signed Impressions: Service Date/Time: Friday, November 25, 2016 14:46 - CONCLUSION: 1. No pneumothorax identified. 2. Patchy bibasilar infiltrates concerning for pneumonia. Wesley Rodriguez MD Chest X-Ray 11/24/16 0800 Signed Impressions: Service Date/Time: Thursday, November 24, 2016 04:21 - CONCLUSION: Persistent left lower lobar consolidation and slight improvement in the right lower lung infiltrates. Marcelino Mendoza MD (Joaquina Alexandra) Physical Exam General Appearance: Well Developed, No Acute Distress, Malnourished (Joaquina Alexandra) Throat Throat Exam: Oral Mucosa [place] & Moist (Joaquina Alexandra) Neck Neck Exam: Neck Supple (Joaquina Alexandra) Pulmonary Resp Exam: Breath Sounds Equal, No Distress, Crackles, Diminished Breath Sounds (Joaquina Alexandra) Cardiology CV Exam: Regular (Joaquina Alexandra) Gastrointestinal/Abdomen GI Exam: Soft, Non-Tender (Joaquina Alexandra) Musculoskeletal MS Exam: Joints Intact, Good Strength (Joaquina Alexandra) Integumentary Skin Exam: Dry, Intact (Joaquina Alexandra) Extremeties Extremities Exam: No Edema (Joaquina Alexandra) Neurologic Neuro Exam: Alert, Awake, Oriented, Speech Clear (Joaquina Alexandra) Psychiatric Psych Exam: Appropriate Responses (Joaquina Alexandra) Assessment/Plan Discussed Condition With: Patient Assessment Summary: Anemia of CKD Problem List: (1) End stage renal disease Plan: HD T-T-Sat, he was seen during dialysis preparation he has functioning left arm AVF, successfully used multiple treatments no acute renal concerns continue per present orders cleared for discharge from renal perspective catheter removed successfully (2) Anemia Plan: Hb stable Continue Epogen with dialysis. (3) Severe sepsis Plan: Afebrile, no leukocytosis Suspect tunneled HD catheter infection, which was removed Friday. Catheter tip grew Staph species. continue Vancomycin which can be given at dialysis. (4) HTN (hypertension), benign Plan: BP stable, continue medications (5) Abdominal pain Plan: CT abdomen unremarkable, symptoms improved Continue to monitor. (6) Pleural effusion Plan: s/p right thoracentesis with 1L fluid removal also had left thoracentesis yesterday with 1L drained pulmonary status improved (Joaquina Alexandra) Plan patient was seen and examined during dialysis. Agree with above assessment and plan. (Flako Shelton MD) Problem Qualifiers (1) Anemia: (2) Abdominal pain: Qualified Code: R10.9 - Abdominal pain, unspecified location Joaquina Alexandra Nov 26, 2016 17:19 Flako Shelton MD Nov 27, 2016 07:58
[2016-11-26] MEDS: LEVOFLOXACIN 250 MG PREMIX INJ 50 ML IV SCH (17:27)
[2016-11-26 20:00] VITALS: BP 126/61; PULSE 84; PULSE 87; RESP 18; TEMP 97.4; O2SAT 95
[2016-11-26] MEDS: TEMAZEPAM 15 MG CAP PO PRN (21:16)
--- NOTE | 2016-11-26 22:01 | HHI.PR ---
Subjective Remarks cough/congestion somewhat better. Objective Vitals heart reg lung rhonci better abd s/nt ext no edema Vital Signs Date Time Temp Pulse Resp B/P Pulse Ox O2 Delivery O2 Flow Rate FiO2 11/26/16 20:00 97.4 87 18 126/61 95 11/26/16 16:20 97 Nasal Cannula 2.00 11/26/16 08:34 Nasal Cannula 2.00 11/26/16 08:00 97.9 77 18 149/72 97 11/26/16 02:43 93 Nasal Cannula 2.00 11/26/16 00:00 97.4 84 16 149/76 94 11/25/16 11/25/16 11/26/16 15:00 23:00 07:00 Intake Total 120 ml 240 ml 240 ml Output Total 0 ml Balance 120 ml 240 ml 240 ml Intake Oral 120 ml 240 ml 240 ml Output Urine Total 0 ml # Voids 0 0 # Bowel Movements 0 0 0 Result Diagram: 11/26/16 0425 11/26/16 0425 Imaging Last Impressions Chest X-Ray 11/22/16 1157 Signed Impressions: Service Date/Time: Tuesday, November 22, 2016 12:27 - CONCLUSION: Significant bilateral airspace disease superimposed on pulmonary congestive changes. Small bilateral effusions Tunneled dialysis catheter Jose Smith MD A/P Problem List: (1) Bacteremia associated with intravascular line Status: Acute Plan: - Cx of Permcath tip growing staphylococcus species, final culture and susceptibilities to follow. - Pt admitted with nonspecific abd pain, nausea/vomiting and fever, now resolved - WBC count at admission was over 20,000 --> 8.5 (11/23/16) --> 7.9 (11/24/16) -- > 6.4 (11/25) - CXR (11/24/16) persistent LLL consolidation - CT Abd/pelvis --> bilateral pleural effusions occupying approximately 1/4 of the left hemithorax with moderate interstitial edema. - Pt s/p right sided thoracentesis on 11/23 with removal of 1,000mL of clear, yellow fluid. - Pt has left sided thoracentesis planned for today. - Blood cultures (11/22/16) --> NO growth at 2 days - Vancomycin with dialysis after d/c - DVT prophylaxis (2) Pleural effusion, bilateral Status: Acute Plan: s/p bilateral thoracentesis. Pt had persistent cough/congestion and worrisome for bronchopna cont abx. nebs. mucomyst. (3) End stage renal disease Status: Chronic Plan: - Pt follows with Dr. Robertson who has been consulted - He is on HD schedule - Permcath removed by IR (11/22/16) - Pt received HD 11/23 and next HD 11/26 - Monitor labs (4) HTN (hypertension), benign Status: Chronic Plan: - Cont. home meds - Monitor (5) CAD (coronary artery disease) Status: Chronic Plan: - Cont. home meds (6) Hyperlipidemia Status: Chronic Plan: - Cont. home meds (7) Anemia Status: Chronic Plan: - Anemia secondary to chronic renal disease - Stable currently - Monitor Problem Qualifiers (1) Anemia: Francois Woo MD Nov 26, 2016 22:01
[2016-11-26 23:52] VITALS: O2SAT 97
[2016-11-27] VITALS (7 sets, daily range): BP systolic 133–159; BP diastolic 69–90; PULSE 75–91; RESP 18–20; TEMP 97.4–98.6; O2SAT 94–99
[2016-11-27] MEDS: RESP: ACETYLCYSTEINE 10% 30 ML NEB NEB SCH ×4 (03:30→19:08)
[2016-11-27] MEDS: LEVOTHYROXINE SODIUM 25 MCG TAB PO SCH (05:28)
[2016-11-27] MEDS: RESP: ALBUTEROL 2.5 MG/IPRATROPIUM 0.5 MG NEB (SCH) NEB ×4 (07:59→19:08)
[2016-11-27] MEDS: hydrOXYzine HCL 25 MG TAB PO SCH (10:00)
[2016-11-27] MEDS: METOPROLOL TARTRATE 50 MG TAB PO SCH ×2 (10:01→20:38)
[2016-11-27] MEDS: ASPIRIN EC 81 MG TABEC PO SCH (10:01)
[2016-11-27] MEDS: SODIUM CHLORIDE 0.9% FLUSH 5 ML FLUSH FLUSH SCH ×2 (10:01→20:38)
[2016-11-27] MEDS: NIFEdipine 60 MG SUSTAINED RELEASE TAB PO SCH (10:01)
[2016-11-27] MEDS: CHOLECALCIFEROL (VIT D3) 1000 UNIT TAB PO SCH (10:01)
[2016-11-27] MEDS ORDERED: LORazepam 2 MG/ML VIAL IV PUSH ONE (12:15)
--- NOTE | 2016-11-27 14:28 | HHI.NPPN ---
Subjective Renal Failure: Chronic Interval History Lying in bed. Having some coughing spells earlier. Dialyzed yesterday without incident. He is now reporting anxiety. (Joaquina Alexandra) Review of Systems Respiratory Lungs: SOB, Cough (Joaquina Alexandra) Objective Data Data 11/26/16 11/27/16 19:00 07:00 Intake Total 240 ml 360 ml Output Total 1000 ml Balance -760 ml 360 ml Intake Oral 240 ml 360 ml Output Urine Total 0 ml Hemodialysis 1000 ml # Voids 2 # Bowel Movements 0 0 Vital Signs Date Time Temp Pulse Resp B/P Pulse Ox O2 Delivery O2 Flow Rate FiO2 11/27/16 12:00 97.6 75 19 135/73 97 11/27/16 08:00 97.4 77 20 145/77 96 11/27/16 07:59 99 Nasal Cannula 2.00 11/27/16 00:00 98.6 89 19 133/69 96 11/26/16 23:52 97 Nasal Cannula 2.00 11/26/16 20:30 Nasal Cannula 2.00 11/26/16 20:00 97.4 87 18 126/61 95 11/26/16 20:00 84 11/26/16 16:20 97 Nasal Cannula 2.00 (Joaquina Alexandra) -: 11/26/16 0425 11/26/16 0425 Imaging Last 72 hours Impressions Thoracentesis Ultrasound 11/25/16 0800 Signed Impressions: Service Date/Time: Friday, November 25, 2016 13:28 - CONCLUSION: Uncomplicated ultrasound guided thoracentesis. Dhaval Rodriguez MD FACR Chest X-Ray 11/25/16 0000 Signed Impressions: Service Date/Time: Friday, November 25, 2016 14:46 - CONCLUSION: 1. No pneumothorax identified. 2. Patchy bibasilar infiltrates concerning for pneumonia. Wesley Rodriguez MD (Joaquina Alexandra) Physical Exam General Appearance: Well Developed, No Acute Distress, Malnourished (Joaquina Alexandra) Throat Throat Exam: Oral Mucosa [place] & Moist (Joaquina Alexandra) Neck Neck Exam: Neck Supple (Joaquina Alexandra) Pulmonary Resp Exam: Breath Sounds Equal, No Distress, Crackles, Diminished Breath Sounds (Joaquina Alexandra) Cardiology CV Exam: Regular, Good Perfusion (Joaquina Alexandra) Gastrointestinal/Abdomen GI Exam: Soft, Non-Tender, Bowel Sounds Present (Joaquina Alexandra) Musculoskeletal MS Exam: Joints Intact, Normal Tone, Good Strength (Joaquina Alexandra) Integumentary Skin Exam: Dry, Intact (Joaquina Alexandra) Extremeties Extremities Exam: No Edema, Pedal Pulses Palpable (Joaquina Alexandra) Neurologic Neuro Exam: Alert, Awake, Oriented, Speech Clear (Joaquina Alexandra) Psychiatric Psych Exam: Appropriate Responses (Joaquina Alexandra) Assessment/Plan Discussed Condition With: Patient Assessment Summary: Anemia of CKD Problem List: (1) End stage renal disease Plan: HD T-T-Sat, he had 1 liter fluid removal yesterday he has functioning left arm AVF, successfully used multiple treatments no acute renal concerns cleared for discharge from renal perspective; he has existing outpatient arrangements at [facility], chair time T-Th-Sat at 3:30 pm if unable to make it to outpatient dialysis, we will dialyze him prior to discharge continue home medications (2) Severe sepsis Plan: resolving, remains afebrile without leukocytosis Suspect tunneled HD catheter infection, which was removed last week Catheter tip grew Staph species. continue Vancomycin , I have arranged for 2 weeks of vancomycin to be given with dialysis beginning tomorrow. (3) Anemia Plan: Hb stable Continue Epogen with dialysis. (4) HTN (hypertension), benign Plan: BP stable, continue medications (5) Abdominal pain Plan: resolved (6) Pleural effusion Plan: s/p bilateral thoracentesis each with 1L fluid removal during this admission pulmonary status improved i encouraged an incentive spirometer use and for him to get out of bed (7) Cough Plan: CT chest ordered to evaluate pulmonary concerns further treatment depending on results encouraged to get out of bed, use incentive spirometer (Joaquina Alexandra) Plan patient was seen and examined. We will continue dialysis TTS. He does not want more than 2 liters in Ultrafiltration. (Flako Shelton MD) Problem Qualifiers (1) Anemia: (2) Abdominal pain: Qualified Code: R10.9 - Abdominal pain, unspecified location Joaquina Alexandra Nov 27, 2016 14:28 Flako Shelton MD Nov 28, 2016 14:15
--- NOTE | 2016-11-27 14:58 | HHI.PR ---
Subjective Remarks Pt complains of sore throat from the breathing treatments He states that he has not been sleeping well because he gets woken for breathing treatments He is very anxious Objective Vitals Vital Signs Date Time Temp Pulse Resp B/P Pulse Ox O2 Delivery O2 Flow Rate FiO2 11/27/16 12:00 97.6 75 19 135/73 97 11/27/16 08:00 97.4 77 20 145/77 96 11/27/16 07:59 99 Nasal Cannula 2.00 11/27/16 00:00 98.6 89 19 133/69 96 11/26/16 23:52 97 Nasal Cannula 2.00 11/26/16 20:30 Nasal Cannula 2.00 11/26/16 20:00 97.4 87 18 126/61 95 11/26/16 20:00 84 11/26/16 16:20 97 Nasal Cannula 2.00 11/26/16 11/26/16 11/27/16 15:00 23:00 07:00 Intake Total 240 ml 240 ml 120 ml Output Total 1000 ml Balance -760 ml 240 ml 120 ml Intake Oral 240 ml 240 ml 120 ml Output Urine Total 0 ml Hemodialysis 1000 ml # Voids 1 1 # Bowel Movements 0 0 0 Result Diagram: 11/26/16 0425 11/26/16 0425 Other Results Laboratory Tests Test 11/26/16 04:25 White Blood Count 6.9 TH/MM3 Red Blood Count 3.62 MIL/MM3 Hemoglobin 10.9 GM/DL Hematocrit 32.4 % Mean Corpuscular Volume 89.5 FL Mean Corpuscular Hemoglobin 30.0 PG Mean Corpuscular Hemoglobin 33.5 % Concent Red Cell Distribution Width 17.7 % Platelet Count 146 TH/MM3 Mean Platelet Volume 9.4 FL Neutrophils (%) (Auto) 78.1 % Lymphocytes (%) (Auto) 11.4 % Monocytes (%) (Auto) 6.4 % Eosinophils (%) (Auto) 2.7 % Basophils (%) (Auto) 1.4 % Neutrophils # (Auto) 5.4 TH/MM3 Lymphocytes # (Auto) 0.8 TH/MM3 Monocytes # (Auto) 0.4 TH/MM3 Eosinophils # (Auto) 0.2 TH/MM3 Basophils # (Auto) 0.1 TH/MM3 CBC Comment DIFF FINAL Differential Comment Sodium Level 142 MEQ/L Potassium Level 3.9 MEQ/L Chloride Level 103 MEQ/L Carbon Dioxide Level 27.3 MEQ/L Anion Gap 12 MEQ/L Blood Urea Nitrogen 39 MG/DL Creatinine 7.61 MG/DL Estimat Glomerular Filtration 7 ML/MIN Rate Random Glucose 70 MG/DL Calcium Level 8.3 MG/DL Magnesium Level 1.9 MG/DL Imaging Last Impressions Chest X-Ray 11/22/16 1157 Signed Impressions: Service Date/Time: Tuesday, November 22, 2016 12:27 - CONCLUSION: Significant bilateral airspace disease superimposed on pulmonary congestive changes. Small bilateral effusions Tunneled dialysis catheter Jose Smith MD Objective Remarks General: Anxious, AAOx3 Chest: Decreased breath sounds at the bases Cardiac: Regular Abd: +BS, soft ND/NT Ext: No edema A/P Problem List: (1) Bacteremia associated with intravascular line Status: Acute Plan: - Cx of Permcath tip growing staphylococcus species, final culture and susceptibilities to follow. - Pt admitted with nonspecific abd pain, nausea/vomiting and fever, now resolved - WBC count at admission was over 20,000 --> 8.5 (11/23/16) --> 7.9 (11/24/16) -- > 6.4 (11/25) --> 6.0 (11/26) - CXR (11/24/16) persistent LLL consolidation - CT Abd/pelvis --> bilateral pleural effusions occupying approximately 1/4 of the left hemithorax with moderate interstitial edema. - Pt s/p right sided thoracentesis on 11/23 with removal of 1,000mL of clear, yellow fluid. - Pt had a left sided thoracentesis on 11/25 with removal of 1,000cc of clear, yellow fluid - Blood cultures (11/22/16) --> NO growth at 5 days - Vancomycin with dialysis after d/c - DVT prophylaxis (2) Pleural effusion, bilateral Status: Acute Plan: - See above. - s/p bilateral thoracentesis. - Pt had persistent cough/congestion and worrisome for bronchopna vs, compressive atelectasis - Cont abx/nebs/Mucomyst and changes nebs to when awake - Chest CT (3) End stage renal disease Status: Chronic Plan: - Pt follows with Dr. Robertson who has been consulted - He is on HD schedule - Permcath removed by IR (11/22/16) - Monitor labs (4) HTN (hypertension), benign Status: Chronic Plan: - Cont. home meds - Monitor (5) CAD (coronary artery disease) Status: Chronic Plan: - Cont. home meds (6) Hyperlipidemia Status: Chronic Plan: - Cont. home meds (7) Anemia Status: Chronic Plan: - Anemia secondary to chronic renal disease - Stable currently - Monitor Assessment and Plan Patient examined. Assessment and plan formulated with Mitra Marsh PA-C. I agree with the above. FEELS LOUSY. ANXIOUS. DRY THROAT. STILL COUGH. GET CT CHEST. CHANGE NEBS TO WHILE AWAKE. ATIVAN PRN. Problem Qualifiers (1) Anemia: Mitra Marsh Nov 27, 2016 14:58 Francois Woo MD Nov 27, 2016 15:23
[2016-11-27] MEDS ORDERED: LORazepam 1 MG TAB PO ONE (15:15)
[2016-11-27] MEDS: LEVOFLOXACIN 250 MG PREMIX INJ 50 ML IV SCH (17:34)
--- NOTE | 2016-11-27 18:11 | RADRPT ---
EXAM DATE/TIME: 11/27/2016 17:54 [facility] COMPARISON: CHEST EXPIRATION ONLY, November 25, 2016, 14:46. INDICATIONS : Sepsis and pneumonia. Pulmonary infiltrates. Status post thoracentesis. RADIATION DOSE: 5.22 CTDIvol (mGy) MEDICAL HISTORY : Sepsis. Hypertension. Renal failure, chronic. SURGICAL HISTORY : Dialysis catheter placement. ENCOUNTER: Initial ACUITY: 1 day PAIN SCALE: 3/10 LOCATION: chest TECHNIQUE: Volumetric scanning of the chest was performed. Using automated exposure control and adjustment of t he mA and/or kV according to patient size, radiation dose was kept as low as reasonably achievable to obtain optimal diagnostic quality images. FINDINGS: LUNGS: There is no pneumothorax. Consolidation is noted in the right posterior lung base with air bronchogr ams. There is streaky perihilar opacity in the right lung there is patchy infiltrate in the left lung base. There is consolidative opacity in the right upper lobe surrounding the bronchi. No concerning pulmonary nodule is visualized. PLEURAE: There are moderate-sized bilateral pleural effusions right greater than left. MEDIASTINUM: The heart and great vessels demonstrate no acute abnormality. There is no mediastinal or hilar lymph adenopathy. Coronary artery calcifications are present. Heart size is mildly enlarged. AXILLAE: Within normal limits. No lymphadenopathy. MUSCULOSKELETAL: Within normal limits for patient age. MISCELLANEOUS: The visualized upper abdominal organs demonstrate no acute abnormality. CONCLUSION: 1. Moderate-sized bilateral pleural effusions right greater than left. 2. Consolidation in the right lower lobe, right upper lobe and perihilar region. 3. Mild cardiomegaly. Dayne Elmore MD on November 27, 2016 at 18:04 Board Certified Radiologist. This report was verified electronically.
[2016-11-27] MEDS: TEMAZEPAM 15 MG CAP PO PRN (20:38)
[2016-11-28] VITALS (7 sets, daily range): BP systolic 132–183; BP diastolic 72–86; PULSE 73–88; RESP 16–18; TEMP 96.2–98.6; O2SAT 91–95
[2016-11-28] MEDS: LORazepam 1 MG TAB PO PRN ×2 (02:18→19:47)
[2016-11-28] MEDS: LEVOTHYROXINE SODIUM 25 MCG TAB PO SCH (05:36)
[2016-11-28] MEDS: RESP: ALBUTEROL 2.5 MG/IPRATROPIUM 0.5 MG NEB (SCH) NEB ×5 (07:23→20:00)
[2016-11-28] MEDS: RESP: ACETYLCYSTEINE 10% 30 ML NEB NEB SCH ×2 (07:23→13:24)
[2016-11-28] MEDS: SODIUM CHLORIDE 0.9% FLUSH 5 ML FLUSH FLUSH SCH ×2 (07:52→19:54)
[2016-11-28] MEDS: CHOLECALCIFEROL (VIT D3) 1000 UNIT TAB PO SCH (09:00)
--- NOTE | 2016-11-28 10:45 | HHI.NPPN ---
Subjective Renal Failure: Chronic Interval History Seen during dialysis. Still some coughing. (Joaquina Alexandra) Review of Systems Respiratory Lungs: SOB, Cough (Joaquina Alexandra) Objective Data Data 11/27/16 11/28/16 19:00 07:00 Intake Total 240 ml 480 ml Output Total 0 ml 300 ml Balance 240 ml 180 ml Intake Oral 240 ml 480 ml Output Urine Total 0 ml 300 ml # Voids 0 # Bowel Movements 0 1 Vital Signs Date Time Temp Pulse Resp B/P Pulse Ox O2 Delivery O2 Flow Rate FiO2 11/28/16 08:00 97.1 88 16 183/86 91 11/28/16 07:43 Room Air 11/28/16 07:23 91 Nasal Cannula 2.00 11/27/16 20:28 Room Air 11/27/16 20:00 97.6 91 19 159/90 95 11/27/16 16:00 98.1 78 18 133/78 98 11/27/16 15:23 94 21 11/27/16 12:00 97.6 75 19 135/73 97 (Joaquina Alexandra) -: 11/26/16 0425 11/26/16 0425 Imaging Last [address] 11/27/16 0000 Signed Impressions: Service Date/Time: Sunday, November 27, 2016 17:54 - CONCLUSION: 1. Moderate-sized bilateral pleural effusions right greater than left. 2. Consolidation in the right lower lobe, right upper lobe and perihilar region. 3. Mild cardiomegaly. Dayne Elmore MD (Joaquina Alexandra) Physical Exam General Appearance: Well Developed, No Acute Distress, Malnourished (Joaquina Alexandra) Throat Throat Exam: Oral Mucosa [place] & Moist (Joaquina Alexandra) Neck Neck Exam: Neck Supple (Joaquina Alexandra) Pulmonary Resp Exam: Breath Sounds Equal, No Distress, Crackles, Rhonchi, Diminished Breath Sounds (Joaquina Alexandra) Cardiology CV Exam: Regular, Good Perfusion (Joaquina Alexandra) Gastrointestinal/Abdomen GI Exam: Soft, Non-Tender, Bowel Sounds Present (Joaquina Alexandra) Musculoskeletal MS Exam: Joints Intact, Normal Tone, Good Strength (Joaquina Alexandra) Integumentary Skin Exam: Dry, Intact (Joaquina Alexandra) Extremeties Extremities Exam: No Edema, Pedal Pulses Palpable (Joaquina Alexandra) Neurologic Neuro Exam: Alert, Awake, Oriented, Speech Clear (Joaquina Alexandra) Psychiatric Psych Exam: Appropriate Responses (Joaquina Alexandra) Assessment/Plan Discussed Condition With: Patient Assessment Summary: Anemia of CKD Problem List: (1) End stage renal disease Plan: HD T-T-Sat, seen during dialysis on a 2K, 350 BFR, goal 2liters he has functioning left arm AVF, successfully used during this admission no acute renal concerns cleared for discharge from renal perspective; he has existing outpatient arrangements at [facility], chair time T-Th-Sat at 3:30 pm continue current plan (2) Severe sepsis Plan: resolving, remains afebrile without leukocytosis Suspect tunneled HD catheter infection, which was removed last week Catheter tip grew Staph species. continue Vancomycin , I have arranged for 2 weeks of vancomycin to be given with dialysis beginning Friday (3) Anemia Plan: Hb stable Continue Epogen with dialysis. (4) HTN (hypertension), benign Plan: BP stable, continue medications (5) Abdominal pain Plan: resolved (6) Pleural effusion Plan: s/p bilateral thoracentesis each with 1L fluid removal during this admission pulmonary status improved i encouraged an incentive spirometer use and for him to get out of bed (7) Cough Plan: CT chest reviewed, has pneumonia and bilateral effusions encouraged to get out of bed, use incentive spirometer on acetylcysteine and Levaquin may require additional thoracentesis (Joaquina Alexandra) Plan patient was seen and examined. CT chest revealed recurrent pleural effusions. Discussed with Dr. Woo. The patient may undergo repeat thoracentesis. ( Flako Shelton MD) Problem Qualifiers (1) Anemia: (2) Abdominal pain: Qualified Code: R10.9 - Abdominal pain, unspecified location Joaquina Alexandra Nov 28, 2016 10:45 Flako Shelton MD Nov 28, 2016 14:36
[2016-11-28] MEDS: VANCOMYCIN INJ 1,000 MG in SODIUM CHLOR 0.9% 250 ML INJ 250 ML IV SCH (11:10)
[2016-11-28] MEDS: EPOETIN ALFA 10,000 UNITS/ML VIAL IV PRN (11:10)
[2016-11-28] MEDS: hydrOXYzine HCL 25 MG TAB PO SCH (12:02)
[2016-11-28] MEDS: NIFEdipine 60 MG SUSTAINED RELEASE TAB PO SCH (12:03)
[2016-11-28] MEDS: METOPROLOL TARTRATE 50 MG TAB PO SCH ×2 (12:03→19:47)
[2016-11-28] MEDS: ASPIRIN EC 81 MG TABEC PO SCH (12:03)
--- NOTE | 2016-11-28 12:25 | HHI.PR ---
Subjective Remarks Pt had HD today Still with SOB/cough Objective Vitals Vital Signs Date Time Temp Pulse Resp B/P Pulse Ox O2 Delivery O2 Flow Rate FiO2 11/28/16 08:00 97.1 88 16 183/86 91 11/28/16 07:43 Room Air 11/28/16 07:23 91 Nasal Cannula 2.00 11/27/16 20:28 Room Air 11/27/16 20:00 97.6 91 19 159/90 95 11/27/16 16:00 98.1 78 18 133/78 98 11/27/16 15:23 94 21 11/27/16 11/27/16 11/28/16 15:00 23:00 07:00 Intake Total 240 ml 240 ml 240 ml Output Total 0 ml 0 ml 300 ml Balance 240 ml 240 ml -60 ml Intake Oral 240 ml 240 ml 240 ml Output Urine Total 0 ml 0 ml 300 ml # Voids 0 # Bowel Movements 0 0 1 Result Diagram: 11/26/16 0425 11/26/16 0425 Imaging Last Impressions Chest CT 11/27/16 0000 Signed Impressions: Service Date/Time: Sunday, November 27, 2016 17:54 - CONCLUSION: 1. Moderate-sized bilateral pleural effusions right greater than left. 2. Consolidation in the right lower lobe, right upper lobe and perihilar region. 3. Mild cardiomegaly. Dayne Elmore MD Thoracentesis Ultrasound 11/25/16 0800 Signed Impressions: Service Date/Time: Friday, November 25, 2016 13:28 - CONCLUSION: Uncomplicated ultrasound guided thoracentesis. Dhaval Rodriguez MD FACR Chest X-Ray 11/25/16 0000 Signed Impressions: Service Date/Time: Friday, November 25, 2016 14:46 - CONCLUSION: 1. No pneumothorax identified. 2. Patchy bibasilar infiltrates concerning for pneumonia. Wesley Rodriguez MD Thoracentesis 11/23/16 0000 Signed Impressions: Service Date/Time: Wednesday, November 23, 2016 16:22 - CONCLUSION: Uncomplicated CT-guided thoracentesis. Hector Morrison MD Abdomen/Pelvis CT 11/22/16 1157 Signed Impressions: Service Date/Time: Tuesday, November 22, 2016 15:02 - CONCLUSION: Bilateral pleural effusions occupying approximately one/quarter of the left hemithorax with moderate interstitial edema. Dhaval Rodriguez MD FACR Central Venous Line 11/22/16 0000 Signed Impressions: Service Date/Time: Tuesday, November 22, 2016 00:00 - CONCLUSION: Uncomplicated Permcath removal. Hector Morrison MD Last Impressions Chest X-Ray 11/22/16 1157 Signed Impressions: Service Date/Time: Tuesday, November 22, 2016 12:27 - CONCLUSION: Significant bilateral airspace disease superimposed on pulmonary congestive changes. Small bilateral effusions Tunneled dialysis catheter Jose Smith MD Objective Remarks General: Anxious, AAOx3 Chest: Decreased breath sounds at the bases Cardiac: Regular Abd: +BS, soft ND/NT Ext: No edema A/P Problem List: (1) Bacteremia associated with intravascular line Status: Acute Plan: - Cx of Permcath tip growing staphylococcus species, final culture and susceptibilities to follow. - Pt admitted with nonspecific abd pain, nausea/vomiting and fever, now resolved - WBC count at admission was over 20,000 --> 8.5 (11/23/16) --> 7.9 (11/24/16) -- > 6.4 (11/25) --> 6.0 (11/26) - CXR (11/24/16) persistent LLL consolidation - CT Abd/pelvis --> bilateral pleural effusions occupying approximately 1/4 of the left hemithorax with moderate interstitial edema. - Pt s/p right sided thoracentesis on 11/23 with removal of 1,000mL of clear, yellow fluid. - Pt had a left sided thoracentesis on 11/25 with removal of 1,000cc of clear, yellow fluid - Blood cultures (11/22/16) --> NO growth at 5 days - Vancomycin with dialysis - Pt still has issues with SOB and repeat Chest CT was ordered (11/27) --> Moderate-sized bilateral pleural effusions right greater than left. Consolidation in the right lower lobe, right upper lobe and perihilar region. Mild cardiomegaly. - Repeat diagnostic and therapeutic thoracentesis and sent fluid for analysis - DVT prophylaxis (2) Pleural effusion, bilateral Status: Acute Plan: - See above. - s/p bilateral thoracentesis. - Pt had persistent cough/congestion and worrisome for bronchopna vs, compressive atelectasis - Cont abx/nebs/Mucomyst and changes nebs to when awake (3) End stage renal disease Status: Chronic Plan: - Pt follows with Dr. Robertson who has been consulted - He is on HD schedule - Permcath removed by IR (11/22/16) - Monitor labs (4) HTN (hypertension), benign Status: Chronic Plan: - Cont. home meds - Monitor (5) CAD (coronary artery disease) Status: Chronic Plan: - Cont. home meds (6) Hyperlipidemia Status: Chronic Plan: - Cont. home meds (7) Anemia Status: Chronic Plan: - Anemia secondary to chronic renal disease - Stable currently - Monitor Assessment and Plan Patient examined. Assessment and plan formulated with Mitra Marsh PA-C. I agree with the above. recurrent pleural effusions. areas of consolidation bang lungs cont nebs/abx. diagnostic and therapeutic thoracentesis. right side first. Problem Qualifiers (1) Anemia: Mitra Marsh Nov 28, 2016 12:25 Francois Woo MD Nov 28, 2016 12:57
[2016-11-28] MEDS: LORazepam 2 MG/ML VIAL IV PRN (14:17)
[2016-11-28] MEDS: HYDROmorphone HCL PF 1 MG/ML VIAL IV PRN (14:17)
--- NOTE | 2016-11-28 16:27 | RADRPT ---
EXAM DATE/TIME: 11/28/2016 15:52 [facility] COMPARISON: CHEST EXPIRATION ONLY, November 25, 2016, 14:46. INDICATIONS : Post thoracentesis. MEDICAL HISTORY : Renal failure, chronic. Sepsis. Hypertension. SURGICAL HISTORY : Dialysis catheter placement. ENCOUNTER: Initial ACUITY: 1 day PAIN SCORE: 0/10 LOCATION: Right chest FINDINGS: 2 views of the chest are performed in expiration. No evidence of pneumothorax. Persistent left airspa ce opacity. Improved visualization of the right hemithorax. Heart size is normal. Osseous structures are unremarkable CONCLUSION: No visualized pneumothorax.. Kati Calderon MD on November 28, 2016 at 16:23 Board Certified Radiologist. This report was verified electronically.
--- NOTE | 2016-11-28 16:43 | RADRPT ---
EXAM DATE/TIME: 11/28/2016 15:00 CORRECTION Corrected on: November 29, 2016; CORRECTION: Corrected exam form information. [facility] COMPARISON: CHEST EXPIRATION ONLY, November 28, 2016, 15:52. US GUIDED THORACENTESIS RIGHT, July 06, 2016, 8 :28. INDICATIONS : Pleural effusion. MEDICAL HISTORY : Hypercholesterolemia. Hypertension. Myocardial infarction. UTI. SURGICAL HISTORY : Tonsillectomy. Cholecystectomy. Dialysis. ENCOUNTER: Subsequent ACUITY: 2 days PAIN SCORE: 4/10 LOCATION: Right FLUID: Total volume of 1800 cc of clear, yellow fluid was removed. Fluid was sent to lab for ordered studies. TECHNIQUE: 1. Ultrasound guidance for thoracentesis. 2. Thoracentesis. The risks, benefits, and alternatives to ultrasound guided thoracentesis were explained to the patien t in lay simple terms, including the risk of bleeding and infection. Written and verbal informed con sent was obtained. Appropriate area for thoracentesis was marked under ultrasound guidance with the patient in the uprig ht position. Overlying skin was prepped and draped in the usual sterile fashion and with local anest hetic, a dermatotomy was made with an 11 blade scalpel. A 6 [place] thoracentesis catheter was placed in the pleural space and fluid was removed. Catheter was then removed and a sterile dressing applie d. There were no immediate complications. The patient tolerated the procedure well and the left the ultrasound suite in stable condition. Chest radiograph is to be obtained. CONCLUSION: Uncomplicated ultrasound guided right thoracentesis with removal of 1.8 L of clear yellow fluid. Pedro Huber MD on November 28, 2016 at 16:41 Board Certified Radiologist. This report was verified electronically. Circulation Representative on November 29, 2016 at 8:20 Board Certified Radiologist. This report was verified electronically.
[2016-11-28] MEDS: LEVOFLOXACIN 250 MG PREMIX INJ 50 ML IV SCH (16:45)
[2016-11-28 17:32] LABS: TOTAL PROTEIN,PLEURAL FLUID 1.9 GM/DL
[2016-11-28 17:52] LABS: PLEURAL FLUID LYMPHS 24 %
[2016-11-29] VITALS (7 sets, daily range): BP systolic 116–141; BP diastolic 59–80; PULSE 67–80; RESP 16–20; TEMP 97–98.6; O2SAT 93–100
[2016-11-29 00:26] LABS: INDIRECT BILIRUBIN 0.4 MG/DL (0.0-0.8); TOTAL BILIRUBIN ADULT 0.5 MG/DL (0.2-1.0)
[2016-11-29] MEDS: TEMAZEPAM 15 MG CAP PO PRN (02:24)
[2016-11-29] MEDS: LEVOTHYROXINE SODIUM 25 MCG TAB PO SCH (05:11)
[2016-11-29] MEDS: ASPIRIN EC 81 MG TABEC PO SCH (06:55)
[2016-11-29] MEDS: CHOLECALCIFEROL (VIT D3) 1000 UNIT TAB PO SCH (08:11)
[2016-11-29] MEDS: METOPROLOL TARTRATE 50 MG TAB PO SCH (08:11)
[2016-11-29] MEDS: NIFEdipine 60 MG SUSTAINED RELEASE TAB PO SCH (08:11)
[2016-11-29] MEDS: hydrOXYzine HCL 25 MG TAB PO SCH (08:11)
[2016-11-29] MEDS: SODIUM CHLORIDE 0.9% FLUSH 5 ML FLUSH FLUSH SCH (08:12)
[2016-11-29] MEDS: RESP: ALBUTEROL 2.5 MG/IPRATROPIUM 0.5 MG NEB (SCH) NEB ×2 (08:50→13:24)
[2016-11-29 09:42] LABS: PLEURAL FLUID PH 8.5
[2016-11-29] MEDS: LORazepam 2 MG/ML VIAL IV PRN (11:02)
[2016-11-29] MEDS: HYDROmorphone HCL PF 1 MG/ML VIAL IV PRN (11:02)
[2016-11-29] MEDS ORDERED: IPRA0.02 NEB (11:08)
[2016-11-29] MEDS ORDERED: ALBU0.08 NEB (11:08)
[2016-11-29] MEDS ORDERED: LEVA500T PO (11:08)
[2016-11-29] MEDS ORDERED: NEBULIZER/ADULT1 KIT (11:09)
--- NOTE | 2016-11-29 11:11 | HHI.FF ---
Face to Face Verification Diagnosis: (1) ESRD (end stage renal disease) on dialysis (2) Pleural effusion (3) HTN (hypertension), benign (4) Abdominal pain (5) Leukocytosis (6) Hyperlipidemia (7) CAD (coronary artery disease) (8) Anemia Physical Therapy Order: Evaluate and Treat, Improve ambulation, Strength and gait training Home Health Nursing Order: Signs/symptoms of disease process Nursing assessment with vital signs I have seen patient Lex Lynne on 11/29/16. My clinical findings support the need for the requested home health care services because: Ltd mobility - disease progression Deconditioned w/ increased weakness Limited ability to care for self High risk of falls I certify that my clinical findings support that this patient is homebound because: Unsteady gait/balance Mitra Marsh Nov 29, 2016 11:11
--- NOTE | 2016-11-29 11:13 | HHI.DCPOC ---
Discharge Care Plan Diagnosis: (1) Pleural effusion (2) Bacteremia associated with intravascular line (3) HTN (hypertension), benign (4) Abdominal pain (5) Leukocytosis (6) Hyperlipidemia (7) CAD (coronary artery disease) Goals to Promote Your Health * To prevent worsening of your condition and complications * To maintain your health at the optimal level Directions to Meet Your Goals Take your medications as prescribed Follow your dietary instruction Follow activity as directed Keep your appointments as scheduled Take your immunizations and boosters as scheduled If your symptoms worsen call your PCP, if no PCP go to Urgent Care Center or Emergency Room Smoking is Dangerous to Your Health. Avoid second hand smoke Call the 24-hour hour crisis hotline for domestic abuse at Mitra Marsh Nov 29, 2016 11:13
--- NOTE | 2016-11-29 11:14 | HHI.DS ---
Discharge Summary Admission Date Nov 22, 2016 at 14:24 Discharge Date: Nov 29, 2016 Admitting Diagnosis severe sepsis, pneumonia, vasculitis (1) Bacteremia associated with intravascular line Diagnosis: Principal (2) Pleural effusion, bilateral Diagnosis: Principal (3) End stage renal disease Diagnosis: Secondary (4) HTN (hypertension), benign Diagnosis: Secondary (5) CAD (coronary artery disease) Diagnosis: Secondary (6) Hyperlipidemia Diagnosis: Secondary (7) Anemia Diagnosis: Secondary Consultants Dr. Arian Robertson - Nephrology Brief History Mr. Lynne is a 65 WM well known to our service. 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 He presented to the ER at [facility] on 11/22/16 with complaints of abd pain, nausea and vomiting. He has had issues with abdominal pain, off and on having nausea and vomiting, decreased appetite and generalized body pain. Recently he was started on prednisone and after starting the prednisone his pain improved for one week but later while still taking it the pain came back. He was on Prednisone 10 mg on admission. He underwent dialysis yesterday without any issues. The patient went home after dialysis and last night and this morning he started vomiting and the abd pain worsened. He denies any fever but when he came in here it was found that he had a fever of 102.6. His WBC count was over 20,000. For hemodialysis they have been using his left arm AV fistula and his PermCath was supposed to be removed but it had not been done yet. There was concern for questionable pneumonia and effusions on CXR int he ER. Blood cultures were drawn in the ER. Pt was given Zosyn and Vancomycin in the ER. CT Abd/pelvis noted bilateral pleural effusions occupying approximately 1/4 of the left hemithorax with moderate interstitial edema. He was sent to radiology for Perm Cath removal and culture of the tip. CBC/BMP: 11/26/16 0425 11/26/16 0425 Significant Findings Laboratory Tests Test 11/28/16 11/28/16 15:38 23:24 Pleural Fluid WBC 482 /MM3 (0-10) Pleural Fluid RBC 29 /MM3 (0-0) Aspartate Amino Transf 7 U/L (15-37) (AST/SGOT) Alanine Aminotransferase 7 U/L (12-78) (ALT/SGPT) Lactate Dehydrogenase 78 U/L (87-241) Total Protein 5.4 GM/DL (6.4-8.2) Albumin 2.2 GM/DL (3.4-5.0) Imaging Last Impressions Thoracentesis Ultrasound 11/28/16 0000 Signed Impressions: Service Date/Time: November 15:00 - CONCLUSION: Uncomplicated ultrasound guided right thoracentesis with removal of 1.8 L of clear yellow fluid. Pedro Huber MD Chest X-Ray 11/28/16 0000 Signed Impressions: Service Date/Time: November 15:52 - CONCLUSION: No visualized pneumothorax.. Kati Calderon MD Chest CT 11/27/16 0000 Signed Impressions: Service Date/Time: Sunday, November 27, 2016 17:54 - CONCLUSION: 1. Moderate-sized bilateral pleural effusions right greater than left. 2. Consolidation in the right lower lobe, right upper lobe and perihilar region. 3. Mild cardiomegaly. Dayne Elmore MD Thoracentesis 11/23/16 0000 Signed Impressions: Service Date/Time: Wednesday, November 23, 2016 16:22 - CONCLUSION: Uncomplicated CT-guided thoracentesis. Hector Morrison MD Abdomen/Pelvis CT 11/22/16 1157 Signed Impressions: Service Date/Time: Tuesday, November 22, 2016 15:02 - CONCLUSION: Bilateral pleural effusions occupying approximately one/quarter of the left hemithorax with moderate interstitial edema. Dhaval Rodriguez MD FACR Central Venous Line 11/22/16 0000 Signed Impressions: Service Date/Time: Tuesday, November 22, 2016 00:00 - CONCLUSION: Uncomplicated Permcath removal. Hector Morrison MD PE at Discharge General: Anxious, AAOx3 Chest: Decreased breath sounds at the bases Cardiac: Regular Abd: +BS, soft ND/NT Ext: No edema Hospital Course Pt was admitted with nonspecific abd pain, nausea/vomiting and fever. WBC count at admission was over 20,000. CXR with significant bilateral air space disease superimposed on pulmonary congestive changes, small bilateral effusions. CT Abd/ pelvis noted bilateral pleural effusions occupying approximately 1/4 of the left hemithorax with moderate interstitial edema. Blood cultures drawn in the ER (11/22) with NGTD. Pt was given Zosyn and Vancomycin in the ER which were continued following admission. Pt was sent to radiology for Perm Cath removal and culture of the tip. Cx of Permcath tip grew staphylococcus species. WBC count improved to WNL. CXR (11/24/16) persistent LLL consolidation. Pt underwent right sided thoracentesis on 11/23 with removal of 1,000mL of clear, yellow fluid. Pt had a left sided thoracentesis on 11/25 with removal of 1,000cc of clear, yellow fluid. Pts antibiotics were changed to Vancomycin with dialysis. He continued to have issues with SOB and there was concern on Xray for possible infiltrates in the lower lobes. Pt was started on renal dosing of Levaquin and given Duonebs and Mucocyst. Repeat Chest CT was ordered (11/27) --> Moderate- sized bilateral pleural effusions right greater than left, consolidation in the right lower lobe, right upper lobe and perihilar region, and mild cardiomegaly. Pt underwent repeat diagnostic and therapeutic thoracentesis on the right on with removal of 1,800cc of fluid and left side on 11/29 with removal of 500cc of clear yellow fluid. Fluid analysis revealed that by Light's criteria it is an exudative effusion. Pt insisted on going home after his second left thoracentesis on 11/29. He will have to followup with his PCP, Dr. Roberto Mascorro for further workup of his exudative pleural effusions. Pt will continue the duonebs outpt and complete Levaquin 250mg po Q48 hours x 4 more doses. Pt follows with Dr. Robertson who was consulted during this admission. He is on HD schedule. Pt will followup with Dr. Robertson for his continued dialysis. Pt is high risk for readmission given his multiple medical problems and overall debilitated state. Pt Condition on Discharge: Stable Discharge Disposition: Disch w/ Home Health Serv Discharge Instructions DIET: Follow Instructions for: Heart Healthy Diet Activities you can perform: Regular-No Restrictions Follow up Referrals: Nephrology - 3-[address] Robertson PCP Follow-up - [address] Mascorro New Medications: Albuterol Neb (Albuterol Neb) 2.5 Mg/3 Ml Neb 2.5 MG NEB Q4HR NEB MIx Albuterol and Ipratropium nebulized medication together in nebulizer every 6 hours while awake for the next 5 days, then can be used as needed. PRN SHORTNESS OF BREATH #60 Ref 0 NEBULE Ipratropium Neb (Ipratropium Neb) 0.5 Mg/2.5 Ml Amp 0.5 MG NEB Q4HR NEB Mix Albuterol and Ipratropium nebulized medication together in nebulizer every 6 hours while awake for the next 5 days, then can be used as needed. PRN SHORTNESS OF BREATH #180 Ref 0 NEBULE Levofloxacin (Levaquin) 250 Mg Tab 250 MG PO Q48H Infection #4 Ref 0 TAB Nebulizer/Adult Mask (Nebulizer/Adult Mask) 1 Kit Kit 1 KIT .ROUTE DIRECTED Breathing Treatment #1 Ref 0 KIT Continued Medications: Allopurinol (Allopurinol) 100 Mg Tab 100 MG PO DAILY Gout #[address] Ref [address] (Aspir-Low) 81 Mg Tabdr 81 MG PO DAILY Cholecalciferol (Vitamin D3) 1,000 Unit Tab 1000 UNITS PO DAILY Nutritional Supplement #1 Ref 0 BOTTLE Hydroxyzine HCl (Hydroxyzine HCl) 25 Mg Tab 25 MG PO DAILY Ref 0 TAB Levothyroxine (Levothyroxine) 25 Mcg Tab 25 MCG PO DAILY Thyroid #30 Ref 0 TAB Metoprolol Tartrate (Metoprolol Tartrate) 50 Mg Tab 50 MG PO BID #60 Ref 0 TAB Nifedipine ER 24 HR (Nifedipine ER 24 HR) 60 Mg Tab 60 MG PO DAILY #30 Ref 0 TAB Prednisone (Prednisone) 10 Mg Tab 10 MG PO DAILY Ref 0 TAB Pregabalin (Lyrica) 50 Mg Cap 50 MG PO BID #60 Ref 0 CAP Pregabalin (Lyrica) 75 Mg Cap 75 MG PO DAILY #30 Ref 0 CAP Temazepam (Temazepam) 30 Mg Cap 30 MG PO HS PRN INSOMNIA #30 Ref 0 CAP Tizanidine (Tizanidine) 2 Mg Tab 2 MG PO BID Muscle Spasm Ref 0 TAB Mitra Marsh Nov 29, 2016 11:14
[2016-11-29] MEDS ORDERED: LEVA250T PO (11:40)
--- NOTE | 2016-11-29 12:53 | RADRPT ---
EXAM DATE/TIME: 11/29/2016 12:26 [facility] COMPARISON: CHEST EXPIRATION ONLY, November 28, 2016, 15:52. INDICATIONS : Post thoracentesis. MEDICAL HISTORY : Sepsis. Hypertension. Renal failure, chronic. SURGICAL HISTORY : Dialysis catheter placement. ENCOUNTER: Subsequent ACUITY: 4 - 6 days PAIN SCORE: 0/10 LOCATION: Bilateral chest FINDINGS: A single portable expiration view of the chest shows worsening consolidation involving the right lung base. Unchanged consolidation within the left lung base given the differences in technique. No effus ion. Heart is at the upper limits of normal in terms of size. A degenerative spine. CONCLUSION: Stable left lower lobe infiltrate with new right lower lobe infiltrate. Marcelino Hull Jr., MD on November 29, 2016 at 12:50 Board Certified Radiologist. This report was verified electronically.
--- NOTE | 2016-11-29 16:10 | RADRPT ---
EXAM DATE/TIME: 11/29/2016 11:50 [facility] COMPARISON: US GUIDED THORACENTESIS LEFT, November 25, 2016, 13:28. INDICATIONS : Left pleural effusion. MEDICAL HISTORY : Hypercholesterolemia. Hypertension. Myocardial infarction. UTI. SURGICAL HISTORY : Hypercholesterolemia. Hypertension. Myocardial infarction. UTI. Thoracentesis. ENCOUNTER: Subsequent ACUITY: 1 week PAIN SCORE: 0/10 LOCATION: Left chest FLUID: Total volume of 500 cc of clear, yellow fluid was removed. Fluid was discarded. Thoracentesis was therapeutic only. TECHNIQUE: 1. Ultrasound guidance for thoracentesis. 2. Thoracentesis. The risks, benefits, and alternatives to ultrasound guided thoracentesis were explained to the patien t in lay simple terms, including the risk of bleeding and infection. Written and verbal informed con sent was obtained. Appropriate area for thoracentesis was marked under ultrasound guidance with the patient in the uprig ht position. Overlying skin was prepped and draped in the usual sterile fashion and with local anest hetic, a dermatotomy was made with an 11 blade scalpel. A 6 [place] thoracentesis catheter was placed in the pleural space and fluid was removed. Catheter was then removed and a sterile dressing applie d. There were no immediate complications. The patient tolerated the procedure well and the left the ultrasound suite in stable condition. Chest radiograph is to be obtained. CONCLUSION: Uncomplicated ultrasound guided thoracentesis. Dhaval Rodriguez MD FACR on November 29, 2016 at 16:08 Board Certified Radiologist. This report was verified electronically.
--- NOTE | 2016-11-29 16:21 | HHI.NPPN ---
Subjective Renal Failure: Chronic Interval History Underwent right thoracentesis yesterday with removal of 1.8 L of fluid and left thoracentesis with removal of 500 ml of fluid today. He is stable, plan is to discharge him. Review of Systems Respiratory Lungs: SOB, Cough Objective Data Data 11/28/16 11/29/16 19:00 07:00 Intake Total 400 ml 720 ml Output Total 2000 ml 450 ml Balance -1600 ml 270 ml Intake Oral 400 ml 720 ml Output Urine Total 450 ml Hemodialysis 2000 ml # Voids 1 # Bowel Movements 1 0 Vital Signs Date Time Temp Pulse Resp B/P Pulse Ox O2 Delivery O2 Flow Rate FiO2 11/29/16 13:00 97.0 70 16 120/59 96 11/29/16 12:40 67 18 141/69 100 11/29/16 12:25 97.8 71 18 133/68 100 11/29/16 11:54 97.0 75 16 116/68 93 11/29/16 08:22 97.2 72 16 124/70 94 11/29/16 08:14 Room Air 11/29/16 04:00 97.8 76 20 126/70 96 11/29/16 00:00 98.6 80 18 132/80 95 11/28/16 20:00 98.6 80 18 132/80 95 11/28/16 20:00 Room Air 11/28/16 19:07 95 -: 11/26/16 0425 11/26/16 0425 Physical Exam General Appearance: Well Developed, No Acute Distress, Malnourished Throat Throat Exam: Oral Mucosa [place] & Moist Neck Neck Exam: Neck Supple Pulmonary Resp Exam: Breath Sounds Equal, No Distress, Crackles, Rhonchi, Diminished Breath Sounds Cardiology CV Exam: Regular, Good Perfusion Gastrointestinal/Abdomen GI Exam: Soft, Non-Tender, Bowel Sounds Present Musculoskeletal MS Exam: Joints Intact, Normal Tone, Good Strength Integumentary Skin Exam: Dry, Intact Extremeties Extremities Exam: No Edema, Pedal Pulses Palpable Neurologic Neuro Exam: Alert, Awake, Oriented, Speech Clear Psychiatric Psych Exam: Appropriate Responses Assessment/Plan Discussed Condition With: Patient Assessment Summary: Anemia of CKD Problem List: (1) End stage renal disease Plan: HD TTS. He will go to [facility] tomorrow for dialyssi. he has functioning left arm AVF, successfully used during this admission cleared for discharge from renal perspective; he has existing outpatient arrangements at [facility], chair time T-Th-Sat at 3:30 pm continue current plan (2) Severe sepsis Plan: resolving, remains afebrile without leukocytosis Suspect tunneled HD catheter infection, which was removed last week Catheter tip grew Staph species. continue Vancomycin , I have arranged for 2 weeks of vancomycin to be given with dialysis beginning Friday (3) Anemia Plan: Hb stable Continue Epogen with dialysis. (4) HTN (hypertension), benign Plan: BP stable, continue medications (5) Abdominal pain Plan: resolved (6) Pleural effusion Plan: s/p bilateral thoracentesis each with 1L fluid removal during this admission pulmonary status improved i encouraged an incentive spirometer use and for him to get out of bed (7) Cough Plan: CT chest reviewed, has pneumonia and bilateral effusions encouraged to get out of bed, use incentive spirometer on acetylcysteine and Levaquin may require additional thoracentesis Plan He is cleared for discharge from renal standpoint. Problem Qualifiers (1) Anemia: (2) Abdominal pain: Qualified Code: R10.9 - Abdominal pain, unspecified location Flako Shelton MD Nov 29, 2016 16:21
== END 2016-11-29 16:20 | disposition home health service (06) | DRG 314 ==
LOC: NEPE 09:28 → NEDA 14:24 → NEDH 18:44 → N04B 20:25 → N03A 21:38 → N07A 11-24 13:43
PROVIDERS: ADMIT Hospitalist; ATTEND Hospitalist
PROC: 05PYX3Z Removal of Infusion Device from Upper Vein, External Approach (ICD-10-PCS; principal; 2016-11-22)
PROC: 0W993ZZ Drainage of Right Pleural Cavity, Percutaneous Approach (ICD-10-PCS; 2016-11-23)
PROC: 30233N1 Transfusion of Nonautologous Red Blood Cells into Peripheral Vein, Percutaneous Approach (ICD-10-PCS; 2016-11-23)
PROC: 5A1D60Z (ICD-10-PCS; 2016-11-23)
PROC: 0W9B3ZZ Drainage of Left Pleural Cavity, Percutaneous Approach (ICD-10-PCS; 2016-11-25)
PROC: 0W993ZX Drainage of Right Pleural Cavity, Percutaneous Approach, Diagnostic (ICD-10-PCS; 2016-11-28)
PROC: 0W9B3ZZ Drainage of Left Pleural Cavity, Percutaneous Approach (ICD-10-PCS; 2016-11-29)
DX: T80.211A Bloodstream infection due to central venous catheter, initial encounter (principal); N18.6 End stage renal disease; R65.21 Severe sepsis with septic shock; A41.2 Sepsis due to unspecified staphylococcus; E87.2 Acidosis; R65.20 Severe sepsis without septic shock; A41.9 Sepsis, unspecified organism; J90 Pleural effusion, not elsewhere classified; I12.0 Hypertensive chronic kidney disease with stage 5 chronic kidney disease or end stage renal disease; I42.0 Dilated cardiomyopathy; E55.9 Vitamin D deficiency, unspecified; I25.10 Atherosclerotic heart disease of native coronary artery without angina pectoris; E78.5 Hyperlipidemia, unspecified; D63.1 Anemia in chronic kidney disease; G89.29 Other chronic pain; R10.84 Generalized abdominal pain; M19.90 Unspecified osteoarthritis, unspecified site; E03.9 Hypothyroidism, unspecified; E78.00 Pure hypercholesterolemia, unspecified; R60.9 Edema, unspecified; I77.6 Arteritis, unspecified; E87.5 Hyperkalemia; Z99.2 Dependence on renal dialysis; I25.2 Old myocardial infarction; Z95.5 Presence of coronary angioplasty implant and graft; Y83.8 Other surgical procedures as the cause of abnormal reaction of the patient, or of later complication, without mention of misadventure at the time of the procedure
CPT/HCPCS: 32555; 36430; 36589; 71010; 71250; 74177; 76937; 80048; 80053; 80076; 82150; 82945; 83605; 83615; 83690; 83735; 83986; 84157; 85014; 85018; 85025; 85027; 85610; 85730; 86850; 86900; 86901; 86920; 87015; 87040; 87070; 87071; 87205; 88112; 89051; 90935; 93005; 94150; 94640; 94664; 96365; 96374; 96375; C1729; J1170; J1956; J2060; J2405; J2543; J3370; J7030; J7050; J7608; P9016; Q4081; Q9963; Q9967

== ENCOUNTER 2016-12-13 09:20 | Inpatient (IN) | payer MEDICARE ==
[2016-12-13] VITALS (8 sets, daily range): BP systolic 94–130; BP diastolic 56–68; PULSE 82–93; RESP 14–20; TEMP 96.4–97.6; O2SAT 80–98
[~2016-12-13] VITALS: Ht 177.8 cm; Wt 63.0 kg
[~2016-12-13 09:20] MED LIST changes: +ALBU0.08 NEB; -CALC668T PO; +HYDR-3133 PO; +IPRA0.02 NEB; +LEVA250T PO; +LEVO25TA4 PO; -LEVO75TA3 PO; +LYRI50CA PO; +LYRI75CA PO; +NEBULIZER/ADULT1 KIT; -OXYC-396 PO; -PHOSSOL5 PO; +PRED10 PO; -REST15CA PO; +TEMA30CA PO; +TIZA2TAB PO; -TRAM50TA PO; +VITA100018 PO
[2016-12-13] MEDS ORDERED: HYDR-3583 PO (09:50)
[2016-12-13] MEDS ORDERED: LORA-373 PO (09:50)
[2016-12-13] MEDS ORDERED: CALC667C PO (09:50)
[2016-12-13] MEDS ORDERED: OXYC1TAB36 PO (09:50)
[2016-12-13 10:21] LABS: BLOOD GAS BASE EXCESS 0.9 mmol/L (-2-2); BLOOD GAS HCO3 24 mmol/L (22-26); BLOOD GAS METHEMOGLOBIN 1.6 % (0-2); BLOOD GAS O2 HGB SATURATION 88 % (90-100); BLOOD GAS OXYGEN CONTENT 11.5 Vol % (12.0-20.0); BLOOD GAS PCO2 33 mmHg (38-42); BLOOD GAS PO2 58 mmHG (61-120); BLOOD GAS TOTAL HGB 9.3 G/DL (12.0-16.0); CRITICAL VALUE YES; DRAW SITE RT RADIAL; LITER FLOW 2 L/M; NUMBER OF ARTERIAL PUNCTURES 1; OXYGEN DEVICE NASAL CANNULA; STAT YES; TEMP CORR TO 98.6; ULNAR PULSE PRESENT
--- NOTE | 2016-12-13 10:48 | PD ---
HPI Chief Complaint: Cold / Flu Symptoms Time Seen by Provider: 09:59 Travel History International Travel<30 days: No Contact w/Intl Traveler<30days: No Traveled to known affect area: No History of Present Illness HPI Patient is a 66-year-old male with history of pleural effusions and end-stage renal disease on hemodialysis on Tuesdays, , Saturdays, who sees Dr. Jarvis with nephrology. Patient reports that he has not been feeling well for the past 2 days with increased cough congestion and tachycardia. Reports that he did have home nursing evaluate him yesterday and he was tachycardic with a HR over 100. Reports that his pulse ox was normal at that time. Patient reports that he has been feeling weak, reports that he is coughing and has been having myalgias. Patient reports that this morning, he has been feeling increasingly short of breath and was coughing up blood-tinged mucus. Reports that he is currently not on any oxygen, reports that he feels as if he can't catch his breath. Reports that he was recently seen in the emergency room and was hospitalized and had pleural effusions which were drained at last visit. Reports that he does not know why he has pleural effusions. Reports that he has noticed increased swelling to his legs this morning which is new to him. Patient with no fevers, reports that he has been having chills. Patient has history of coronary artery disease, he does have 3 cardiac stents and his wood heel back liner is Dr. Street. [facility] Past Medical History Hx Anticoagulant Therapy: Yes (ASA) Asthma: No Autoimmune Disease: No Blood Disorders: No Anxiety: Yes Depression: Yes Heart Rhythm Problems: No Cancer: No Cardiac Catheterization: Yes Cardiovascular Problems: Yes High Cholesterol: Yes Chest Pain: Yes Congestive Heart Failure: No COPD: No Cerebrovascular Accident: No Diabetes: No Dialysis: Yes (TRS) Diminished Hearing: No Endocrine: Yes (ESRD) Gastrointestinal Disorders: Yes (abd pain) GERD: No Genitourinary: Yes (renal failure, DIALYSIS ,TR,SA) Hepatitis: No Hiatal Hernia: No Hypertension: Yes Immune Disorder: No Kidney Stones: No Musculoskeletal: No Neurologic: Yes Psychiatric: No Reproductive: No Respiratory: Yes Myocardial Infarction: Yes Renal Failure: Yes (ESRD) Seizures: No Thyroid Disease: No Past Surgical History AICD: No Body Medical Devices: VAS CATH RIGHT CHEST left lower arm AV fistula Cholecystectomy: Yes Coronary Stent: Yes (3 STENTS 2004) Ear Surgery: No Endocrine Surgery: No Eye Surgery: No Genitourinary Surgery: No Gynecologic Surgery: No Joint Replacement: No Oral Surgery: No Pacemaker: No Thoracic Surgery: No Tonsillectomy: Yes Other Surgery: Yes (GALLBLADDER 25YRS AGO) Social History Alcohol Use: No Tobacco Use: No Substance Use: No Allergies-Medications (Allergen,Severity, Reaction): Coded Allergies: HMG-CoA Reductase Inhibitors (Verified Allergy, Severe, Joint Pain, ) Morphine (Verified Allergy, Severe, LOW BP, 12/13/16) Reported Meds & Prescriptions Reported Meds & Active Scripts Active Nebulizer/Adult Mask (N/A) 1 Kit Kit 1 Kit .ROUTE DIRECTED Ipratropium Neb (Ipratropium [place]) 0.5 Mg/2.5 Ml Amp 0.5 Mg NEB Q4HR NEB PRN Mix Albuterol and Ipratropium nebulized medication together in nebulizer every 6 hours while awake for the next 5 days, then can be used as needed. Albuterol Neb (Albuterol Sulfate) 2.5 Mg/3 Ml Neb 2.5 Mg NEB Q4HR NEB PRN MIx Albuterol and Ipratropium nebulized medication together in nebulizer every 6 hours while awake for the next 5 days, then can be used as needed. Reported Oxycodone-Acetaminophen 10-325 mg Tab 1 Tab PO Q4HR Lorazepam 0.5 Mg Tab 0.5 Mg PO DAILY PRN Hydrocodone-Acetaminophen 10-325 mg Tab 1 Tab PO Q4H PRN Calcium Acetate (Calcium Acetate (Phosphate Bin) 667 Mg Cap 2 Tab PO TID Vitamin D3 (Cholecalciferol) 1,000 Unit Tab 1,000 Units PO DAILY Levothyroxine (Levothyroxine Sodium) 25 Mcg Tab 25 Mcg PO DAILY Hydroxyzine HCl 25 Mg Tab 25 Mg PO DAILY Temazepam 30 Mg Cap 30 Mg PO HS PRN Prednisone 10 Mg Tab 10 Mg PO DAILY Lyrica (Pregabalin) 50 Mg Cap 50 Mg PO BID Metoprolol Tartrate 50 Mg Tab 50 Mg PO BID Nifedipine ER 24 HR (Nifedipine) 60 Mg Tab 60 Mg PO DAILY Aspir-Low (Aspirin) 81 Mg Tabdr 81 Mg PO DAILY Allopurinol 100 Mg Tab 100 Mg PO DAILY Review of Systems General / Constitutional: No: Fever Eyes: No: Visual changes HENT: No: Headaches Cardiovascular: No: Chest Pain or Discomfort Respiratory: Positive: Cough, Shortness of Breath, Hemoptysis Gastrointestinal: No: Abdominal Pain Genitourinary: No: Dysuria Musculoskeletal: No: Pain Skin: No Rash Neurologic: No: Weakness Psychiatric: No: Depression Endocrine: No: Polydipsia Hematologic/Lymphatic: No: Easy Bruising Physical Exam Narrative GENERAL: Moderate distress SKIN: Warm and dry. HEAD: Atraumatic. Normocephalic. EYES: Pupils equal and round. No scleral icterus. No injection or drainage. ENT: No nasal bleeding or discharge. Mucous membranes pink and moist. NECK: Trachea midline. No JVD. CARDIOVASCULAR: Regular rate and rhythm. No murmur appreciated. RESPIRATORY: No accessory muscle use. Patient with Rales to lung bases Breath sounds equal bilaterally. GASTROINTESTINAL: Abdomen soft, non-tender, nondistended. Hepatic and splenic margins not palpable. MUSCULOSKELETAL: No obvious deformities. No clubbing. No cyanosis. +1 edema to left lower extremity , patient with left-sided AV fistula with good thrill NEUROLOGICAL: Awake and alert. No obvious cranial nerve deficits. Motor grossly within normal limits. Normal speech. PSYCHIATRIC: Appropriate mood and affect; insight and judgment normal. Data Data Last Documented VS Vital Signs Date Time Temp Pulse Resp B/P Pulse Ox O2 Delivery O2 Flow Rate FiO2 12/13/16 10:56 96 4 12/13/16 09:24 97.6 83 14 94/56 Orders Electrocardiogram (12/13/16 ) Complete Blood Count With Diff (12/13/16 10:07) Comprehensive Metabolic Panel (12/13/16 10:07) Prothrombin Time / Inr (Pt) (12/13/16 10:07) Act Partial Throm Time (Ptt) (12/13/16 10:07) Lactic Acid Sepsis Protocol (12/13/16 10:07) Magnesium (Mg) (12/13/16 10:07) Lipase (12/13/16 10:07) Ckmb (Isoenzyme) Profile (12/13/16 10:07) Troponin I (12/13/16 10:07) Urinalysis - C+S If Indicated (12/13/16 10:07) Influenzae A/B Antigen (12/13/16 10:07) Blood Culture (12/13/16 10:07) Chest, Single Ap (12/13/16 10:07) Arterial Blood Gas (Abg) (12/13/16 10:07) Blood Glucose (12/13/16 10:07) Ecg Monitoring (12/13/16 10:07) Iv Access Insert/Monitor (12/13/16 10:07) Oximetry (12/13/16 10:07) Us Leg Venous Doppler Bilat (12/13/16 ) Labs Laboratory Tests Test 12/13/16 12/13/16 10:10 10:37 Blood Gas Puncture Site RT RADIAL Blood Gas Patient Temperature 98.6 Blood Gas HCO3 24 mmol/L Blood Gas Base Excess 0.9 mmol/L Blood Gas Oxygen Saturation 88 % Arterial Blood pH 7.48 Arterial Blood Partial 33 mmHg Pressure CO2 Arterial Blood Partial 58 mmHG Pressure O2 Arterial Blood Oxygen Content 11.5 Vol % Arterial Blood 3.0 % Carboxyhemoglobin Arterial Blood Methemoglobin 1.6 % Blood Gas Hemoglobin 9.3 G/DL Oxygen Delivery Device NASAL CANNULA Blood Gas Liter Flow 2 L/M White Blood Count 11.7 TH/MM3 Red Blood Count 3.92 MIL/MM3 Hemoglobin 11.4 GM/DL Hematocrit 34.9 % Mean Corpuscular Volume 89.0 FL Mean Corpuscular Hemoglobin 29.0 PG Mean Corpuscular Hemoglobin 32.6 % Concent Red Cell Distribution Width 17.8 % Platelet Count 271 TH/MM3 Mean Platelet Volume 8.7 FL Neutrophils (%) (Auto) 87.7 % Lymphocytes (%) (Auto) 4.3 % Monocytes (%) (Auto) 6.2 % Eosinophils (%) (Auto) 0.9 % Basophils (%) (Auto) 0.9 % Neutrophils # (Auto) 10.3 TH/MM3 Lymphocytes # (Auto) 0.5 TH/MM3 Monocytes # (Auto) 0.7 TH/MM3 Eosinophils # (Auto) 0.1 TH/MM3 Basophils # (Auto) 0.1 TH/MM3 CBC Comment DIFF FINAL Differential Comment Prothrombin Time 10.3 SEC Prothromb Time International 0.9 RATIO Ratio Activated Partial 28.3 SEC Thromboplast Time Sodium Level 137 MEQ/L Potassium Level 5.2 MEQ/L Chloride Level 101 MEQ/L Carbon Dioxide Level 25.8 MEQ/L Anion Gap 10 MEQ/L Blood Urea Nitrogen 30 MG/DL Creatinine 4.88 MG/DL Estimat Glomerular Filtration 12 ML/MIN Rate Random Glucose 81 MG/DL Lactic Acid Level 1.7 mmol/L Calcium Level 9.0 MG/DL Magnesium Level 2.2 MG/DL Total Bilirubin 0.5 MG/DL Aspartate Amino Transf 20 U/L (AST/SGOT) Alanine Aminotransferase 17 U/L (ALT/SGPT) Alkaline Phosphatase 95 U/L Total Creatine Kinase 32 U/L Troponin I 0.03 NG/ML Total Protein 7.2 GM/DL Albumin 3.0 GM/DL Lipase 118 U/L MDM Medical Decision Making Medical Screen Exam Complete: Yes Emergency Medical Condition: Yes Interpretation(s) EKG at 0953: Normal sinus rhythm at 84 bpm, QT/QTc 393/434, patient with left axis deviation, patient with ST segment depressions in anterior lateral leads, EKG similar to previous EKG on November 22, 2016. Vital Signs Date Time Temp Pulse Resp B/P Pulse Ox O2 Delivery O2 Flow Rate FiO2 12/13/16 09:24 97.6 83 14 94/56 80 Differential Diagnosis Pleural effusion, PE, pneumothorax, ACS, electrolyte abnormality, pneumonia, influenza, bacteremia Narrative Course Patient is a 66-year-old male with history of pleural effusions and end-stage renal disease on hemodialysis on Tuesdays, , Saturdays, presents to the ER as he has not been feeling well for the past 2 days with increased cough congestion and tachycardia. Reports that he did have home nursing evaluate him yesterday and he was tachycardic with a HR over 100. Reports that his pulse ox was normal at that time. Patient reports that he has been feeling weak, reports that he is coughing and has been having myalgias. Patient reports that this morning, he has been feeling increasingly short of breath and was coughing up blood-tinged mucus. Reports that he is currently not on any oxygen, reports that he feels as if he can't catch his breath. Reports that he was recently seen in the emergency room and was hospitalized and had pleural effusions which were drained at last visit. Upon presentation to the emergency room, patient was hypoxic with a pulse ox of 80% on room air, patient does not use home O2 at baseline, oxygen was placed on patient. X-ray ordered as well as EKG and lab work. Ultrasound of legs ordered for evaluation of possible DVT. Patient reports that he has been coughing up blood tinged mucus, consideration for PE versus pneumonia versus TB versus influenza. He is short of breath, reports history of recent pleural effusion with drainage, xray of chest ordered to further evaluate symptoms. Patient reports that he is comfortable on oxygen at this time. patient hypoxic in er - pt with pneumonia as well as pleural effusion. Patient was recently admitted to the hospital and discharged, will treat for hospital- acquired pneumonia with Zosyn and azithromycin. Patient will admission at this time. Physician Communication Physician Communication case reviewed with dr reynolds who accepts pt to service Diagnosis Primary Impression: Hypoxia Additional Impressions: Pneumonia Pleural effusion Admitting Information Admitting Physician Requests: Admit Disposition: [facility]-ED USE ONLY Mitra Mccormick DO Dec 13, 2016 10:47
[2016-12-13 11:01] LABS: AUTOMATED NEUTROPHIL # 10.3 TH/MM3 (1.8-7.7); BASOPHIL # 0.1 TH/MM3 (0-0.2); BASOPHIL % 0.9 % (0.0-2.0); EOSINOPHIL # 0.1 TH/MM3 (0-0.4); EOSINOPHIL % 0.9 % (0.0-4.0); HEMATOCRIT 34.9 % (39.0-51.0); HEMO FLAGS DIFF FINAL; LYMPH % 4.3 % (9.0-44.0); LYMPHOCYTE # 0.5 TH/MM3 (1.0-4.8); MEAN CORPUSCULAR HGB CONC 32.6 % (32.0-36.0); MONO % 6.2 % (0.0-8.0); NEUT % 87.7 % (16.0-70.0); PLATELET COUNT 271 TH/MM3 (150-450); RED BLOOD COUNT 3.92 MIL/MM3 (4.50-5.90); RED CELL DISTRIBUTION WIDTH 17.8 % (11.6-17.2); WHITE BLOOD COUNT 11.7 TH/MM3 (4.0-11.0)
[2016-12-13 11:10] LABS: APTT (PATIENT) 28.3 SEC (24.3-30.1); INTERNATIONAL NORMALIZED RATIO 0.9 RATIO; PROTHROMBIN TIME - PATIENT 10.3 SEC (9.8-11.6)
[2016-12-13 11:19] LABS: ALT (GPT) 17 U/L (12-78); ANION GAP 10 MEQ/L (5-15); AST (GOT) 20 U/L (15-37); BICARBONATE 25.8 MEQ/L (21.0-32.0); BLOOD UREA NITROGEN 30 MG/DL (7-18); CHLORIDE 101 MEQ/L (98-107); GLOMERULAR FILTRATION RATE 12 ML/MIN (>89); MAGNESIUM 2.2 MG/DL (1.5-2.5); POTASSIUM 5.2 MEQ/L (3.5-5.1); SODIUM (NA) 137 MEQ/L (136-145)
[2016-12-13 11:23] LABS: ALKALINE PHOSPHATASE 95 U/L (45-117); TOTAL BILIRUBIN ADULT 0.5 MG/DL (0.2-1.0)
[2016-12-13 11:24] LABS: CREATINE KINASE 32 U/L (39-308)
--- NOTE | 2016-12-13 11:47 | RADRPT ---
EXAM DATE/TIME: 12/13/2016 10:27 [facility] COMPARISON: CHEST EXPIRATION ONLY, November 28, 2016, 15:52. CHEST SINGLE AP, November 24, 2016, 4:21. INDICATIONS : Shortness of breath. Chest Pain MEDICAL HISTORY : None. SURGICAL HISTORY : Catheter dialysis placement ENCOUNTER: Initial ACUITY: 2 days PAIN SCORE: 0/10 LOCATION: Bilateral chest FINDINGS: A single view of the chest demonstrates persistent left basilar consolidation/effusion with mild prom inence of interstitial markings in the same general vicinity. Interval development of more consolidat carla process in the right base possibly representing an early infiltrate. Heart size is borderline. Os seous structures are intact. CONCLUSION: 1. Developing airspace process in the right lower lung field concerning for a pneumonic infiltrate. 2. Persistent left basilar consolidation/effusion with some regional interstitial prominence. Hector Morrison MD on December 13, 2016 at 11:43 Board Certified Radiologist. This report was verified electronically.
[2016-12-13] MEDS ORDERED: AZITHROMYCIN INJ 500 MG in SODIUM CHLOR 0.9% 250 ML INJ 250 ML IV ONE (12:30)
[2016-12-13] MEDS ORDERED: PIPERACIL-TAZO 2.25 GM PREMIX 50 ML IV ONE (12:30)
--- NOTE | 2016-12-13 12:49 | RADRPT ---
EXAM DATE/TIME: 12/13/2016 11:44 [facility] COMPARISON: No previous studies available for comparison. INDICATIONS : Bilateral leg swelling. MEDICAL HISTORY : Myocardial infarction. Hypercholesterolemia. Hypertension. Anticoagulant therapy. Dyspnea. Renal daily lure. Dialysis. SURGICAL HISTORY : Tonsillectomy. Cardiac catheterization. Coronary stent. Cholecystectomy. Thoracentesis. ENCOUNTER: Initial ACUITY: 3 days PAIN SCORE: 0/10 LOCATION: Bilateral legs. TECHNIQUE: Venous ultrasound of the left and right leg was performed from the inguinal ligament to the proximal calf. Real-time, color Doppler and spectral tracing, compression and augmentation techniques were us ed. FINDINGS: RIGHT LEG: There is normal compressibility of the deep venous system from the inguinal region to the proximal ca lf. No echogenic clot is seen in the lumen of the common femoral, femoral, popliteal, and posterior tibial veins. There is a normal response of the venous system to proximal and distal augmentation an d respiration. LEFT LEG: There is normal compressibility of the deep venous system from the inguinal region to the proximal ca lf. No echogenic clot is seen in the lumen of the common femoral, femoral, popliteal, and posterior tibial veins. There is a normal response of the venous system to proximal and distal augmentation an d respiration. CONCLUSION: No evidence of deep venous thrombosis within the lower extremities. Trell Stanton MD on December 13, 2016 at 12:47 Board Certified Radiologist. This report was verified electronically.
--- NOTE | 2016-12-13 12:56 | HHI.HP ---
HPI Service [facility] Hospitalists Primary Care Physician Roberto Mascorro MD Admission Diagnosis Acute hypoxia with HCAP and pleural effusions Chief Complaint: SOB Travel History International Travel<30 Days: No Contact w/Intl Traveler <30 Da: No Traveled to Known Affected Are: No History of Present Illness Mr. Lynne is a 66 WM well known to our service. 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 [place] [facility] [place] with suspected bacteremia related to his Permcath which grew staphylococcus species. He had noted pleural effusions during that admission and underwent right sided thoracentesis on 11/23 with removal of 1,000mL of clear, yellow fluid. Pt had a left sided thoracentesis on 11/25 with removal of 1,000cc of clear, yellow fluid. He continued to have issues with SOB and Chest CT was ordered (11/27) which noted moderate-sized bilateral pleural effusions right greater than left, consolidation in the right lower lobe, right upper lobe and perihilar region, and mild cardiomegaly. Pt underwent repeat diagnostic and therapeutic thoracentesis on the right on 11/28 with removal of 1,800cc of fluid and left side on 11/29 with removal of 500cc of clear yellow fluid. Fluid analysis revealed that by Light's criteria it is an exudative effusion. Pt had a second left thoracentesis on 11/29 with removal of another 1.8L of fluid. Pt reports that he had been doing fairly well up until 4 days ago after his dialysis on Friday he noticed increased LE edema, which he had not had problems with previously. Then last night he started having increased cough and phlegm production. He coughed up some blood tinged sputum this morning. He has not missed any dialysis. He has had a mild sinus congestion/runny nose but denies any sore throat, fevers or chills. No ill contacts noted. He presented to the ED on 12/13/16 because of increased SOB and feeling like couldn't catch his breath. Pt denies any chest pain, palpitations, dizziness or weakness. Pts oxygen saturations was at 80% upon arrival to the ED but this has improved with supplemental O2 @ 4L. He is not on any supplemental O2 at home. Review of Systems Constitutional: DENIES: Fever, Chills Eyes: DENIES: Vision loss Ears, nose, mouth, throat: COMPLAINS OF: Nasal discharge, Running Nose, DENIES : Hearing loss, Throat pain, Hoarseness, Sinus Pain Respiratory: COMPLAINS OF: Cough, Shortness of breath Cardiovascular: COMPLAINS OF: Lower Extremity Edema, DENIES: Chest pain, Palpitations Gastrointestinal: DENIES: Abdominal pain, Nausea, Vomiting Musculoskeletal: DENIES: Joint pain Integumentary: DENIES: Rash Neurologic: DENIES: Headache Psychiatric: DENIES: Confusion Past Family Social History Past Medical History Pleural effusions s/p thoracentesis CAD/Prior ID/Prior PTCA Dilated cardiomyopathy, 2D echo on 08-14-16 showed an EF of 55-60% grade 3 diastolic dysfunction. A myocardial perfusion scan on 08-15-16 showed no ischemia and a dilated cardiomyopathy with global hypokinesis and an EF of 21%. Hypertension Hyperlipidemia Osteoarthritis Cervical disc disease Mild carotid artery disease Pulmonary hypertension, 2D echo on 08-14-16 showed elevated pulmonary artery pressure of 56mm Hg ESRD on hemodialysis, biopsy on 01-29-16 showed membranous glomerulonephritis with almost 50% scarring in the tubulointerstitial and 20% glomerulosclerosis. 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 Hypothyroidism Vitamin D insufficiency Anemia of chronic kidney disease, gets Epogen at the dialysis center Chronic pain Past Surgical History Thoracentesis Renal Biopsy 01/2016 PTCA with stent placement x 3 in 2004 Cholecystectomy Tonsillectomy Reported Medications Ipratropium Neb (Ipratropium Willard) 0.5 Mg/2.5 Ml Amp 0.5 Mg NEB Q4HR NEB PRN Albuterol Neb (Albuterol Sulfate) 2.5 Mg/3 Ml Neb 2.5 Mg NEB Q4HR NEB PRN Oxycodone-Acetaminophen 10-325 mg Tab 1 Tab PO Q4HR Lorazepam 0.5 Mg Tab 0.5 Mg PO DAILY PRN Hydrocodone-Acetaminophen 10-325 mg Tab 1 Tab PO Q4H PRN Calcium Acetate (Calcium Acetate (Phosphate Bin) 667 Mg Cap 2 Tab PO TID Vitamin D3 (Cholecalciferol) 1,000 Unit Tab 1,000 Units PO DAILY Levothyroxine (Levothyroxine Sodium) 25 Mcg Tab 25 Mcg PO DAILY Hydroxyzine HCl 25 Mg Tab 25 Mg PO DAILY Temazepam 30 Mg Cap 30 Mg PO HS PRN Prednisone 10 Mg Tab 10 Mg PO DAILY Lyrica (Pregabalin) 50 Mg Cap 50 Mg PO BID Metoprolol Tartrate 50 Mg Tab 50 Mg PO BID Nifedipine ER 24 HR (Nifedipine) 60 Mg Tab 60 Mg PO DAILY Aspir-Low (Aspirin) 81 Mg Tabdr 81 Mg PO DAILY Allopurinol 100 Mg Tab 100 Mg PO DAILY Allergies: Coded Allergies: HMG-CoA Reductase Inhibitors (Verified Allergy, Severe, Joint Pain, ) Morphine (Verified Allergy, Severe, LOW BP, 12/13/16) Family History Noncontributory Social History Denies any alcohol, tobacco or illicit drug use Physical Exam Vital Signs Vital Signs Date Time Temp Pulse Resp B/P Pulse Ox O2 Delivery O2 Flow Rate FiO2 12/13/16 12:30 82 16 105/58 94 12/13/16 10:56 96 4 12/13/16 09:24 97.6 83 14 94/56 80 Physical Exam GENERAL: This is a well-nourished, well-developed patient, in no apparent distress. HEENT: Atraumatic. Normocephalic. No temporal or scalp tenderness. No scleral icterus. Airway patent. NECK: Trachea midline, supple, nontender. CARDIO: Regular. RESP: Decreased breath sounds on the right base ABD: +BS, soft, nondistended. EXT: Bilateral LE edema. NEURO: Awake and alert. Motor and sensory grossly within normal limits. Normal speech. Laboratory Laboratory Tests Test 12/13/16 12/13/16 10:10 10:37 Blood Gas Puncture Site RT RADIAL Blood Gas Patient Temperature 98.6 Blood Gas HCO3 24 Blood Gas Base Excess 0.9 Blood Gas Oxygen Saturation 88 Arterial Blood pH 7.48 Arterial Blood Partial 33 Pressure CO2 Arterial Blood Partial 58 Pressure O2 Arterial Blood Oxygen Content 11.5 Arterial Blood 3.0 Carboxyhemoglobin Arterial Blood Methemoglobin 1.6 Blood Gas Hemoglobin 9.3 Oxygen Delivery Device NASAL CANNULA Blood Gas Liter Flow 2 White Blood Count 11.7 Red Blood Count 3.92 Hemoglobin 11.4 Hematocrit 34.9 Mean Corpuscular Volume 89.0 Mean Corpuscular Hemoglobin 29.0 Mean Corpuscular Hemoglobin 32.6 Concent Red Cell Distribution Width 17.8 Platelet Count 271 Mean Platelet Volume 8.7 Neutrophils (%) (Auto) 87.7 Lymphocytes (%) (Auto) 4.3 Monocytes (%) (Auto) 6.2 Eosinophils (%) (Auto) 0.9 Basophils (%) (Auto) 0.9 Neutrophils # (Auto) 10.3 Lymphocytes # (Auto) 0.5 Monocytes # (Auto) 0.7 Eosinophils # (Auto) 0.1 Basophils # (Auto) 0.1 CBC Comment DIFF FINAL Differential Comment Prothrombin Time 10.3 Prothromb Time International 0.9 Ratio Activated Partial 28.3 Thromboplast Time Sodium Level 137 Potassium Level 5.2 Chloride Level 101 Carbon Dioxide Level 25.8 Anion Gap 10 Blood Urea Nitrogen 30 Creatinine 4.88 Estimat Glomerular Filtration 12 Rate Random Glucose 81 Lactic Acid Level 1.7 Calcium Level 9.0 Magnesium Level 2.2 Total Bilirubin 0.5 Aspartate Amino Transf 20 (AST/SGOT) Alanine Aminotransferase 17 (ALT/SGPT) Alkaline Phosphatase 95 Total Creatine Kinase 32 Troponin I 0.03 Total Protein 7.2 Albumin 3.0 Lipase 118 Date/Time Procedure Status Source Growth 12/13/16 10:40 Influenza Types A,B Antigen (SARAI) - Final Complete Nasal Aspirate NEGATIVE FOR FLU A AND B ANTIGEN.... 12/13/16 10:37 Aerobic Blood Culture Received Blood Peripheral Pending 12/13/16 10:37 Anaerobic Blood Culture Received Blood Peripheral Pending Result Diagram: 12/13/16 1037 12/13/16 1037 Imaging Last Impressions Chest X-Ray 12/13/16 1007 Signed Impressions: Service Date/Time: Tuesday, December 13, 2016 10:27 - CONCLUSION: 1. Developing airspace process in the right lower lung field concerning for a pneumonic infiltrate. 2. Persistent left basilar consolidation/effusion with some regional interstitial prominence. Hector Morrison MD Septic Shock Reassessment Heart: Regular rate and rhythm Lungs: Clear Skin: Warm Peripheral Pulses: Bounding Right Radial Bounding Left Radial Bounding Right Popliteal Bounding Left Popliteal Bounding Right Dorsalis Pedis Bounding Left Dorsalis Pedis Bounding Right Posterior Tibial Bounding Left Posterior Tibial Assessment and Plan Problem List: (1) Hypoxia Status: Acute Plan: - Pt admitted with hypoxia, SOB and LE edema with hx of pleural effusions. - Pt had 4 thoracentesis within the last 3 weeks. - CXR at admission noted developing airspace process in the right lower lung field and persistent left basilar consolidation/effusion with some regional interstitial prominence. - Pt does have decreased breath sounds at the right base on exam - Chest CT - US guided thoracentesis on the right, therapeutic, give IV Ativan 0.5mg and Dilaudid 0.5mg prior to thoracentesis - Supplemental O2 - Duonebs - Pt was given a dose of Zosyn and Azithromycin in the ER - We will continue the Zosyn - DVT prophylaxis (2) Pleural effusion Status: Acute Plan: - See above. (3) ESRD (end stage renal disease) on dialysis Status: Chronic Plan: - Pt follows with Dr. Robertson who has been consulted - He is on HD schedule (4) HTN (hypertension), benign Status: Chronic Plan: - Home meds continued (5) CAD (coronary artery disease) Status: Chronic Plan: - Home meds continued Assessment and Plan Patient examined. Assessment and plan formulated with Mitra Marsh PA-C. I agree with the above. esrd. has recurrent admissions for pleural effusion and volume overload. Pt says they take 2-3L with every HD and that is all he can stand. xrays shows more pleural effusion worse on the right again. possible area of pna in rml. abx initiated due to recent hospitalization and coverage of nosocomial pna. consult renal for HD....Seems like this pt somehow needs to get more fluid off with HD. ask for thoracentesis on right but it will most likely continue to reoccur. Physician Certification 2 Midnight Certification Type: Admission for Inpatient Services Order for Inpatient Services The services are ordered in accordance with Medicare regulations or non- Medicare payer requirements, as applicable. In the case of services not specified as inpatient-only, they are appropriately provided as inpatient services in accordance with the 2-midnight benchmark. Estimated LOS (days): 3 3 days is the estimated time the patient will need to remain in the hospital, assuming treatment plan goals are met and no additional complications. Post-Hospital Plan: Not yet determined Mitra Marsh Dec 13, 2016 12:56 Francois Woo MD Dec 13, 2016 17:12
[2016-12-13] MEDS ORDERED: LORazepam 0.5 MG TAB PO PRN (14:45)
--- NOTE | 2016-12-13 15:15 | RADRPT ---
EXAM DATE/TIME: 12/13/2016 14:39 [facility] COMPARISON: CT THORAX W/O CONTRAST, November 27, 2016, 17:54. INDICATIONS : Hypoxia, shortness of breath and pleural effusion. RADIATION DOSE: 3.66 CTDIvol (mGy) MEDICAL HISTORY : Cardiovascular disease. Hypertension. Renal failure, chronic. SURGICAL HISTORY : Cholecystectomy. Cardiac stents. ENCOUNTER: Initial ACUITY: 1 day PAIN SCALE: 4/10 LOCATION: Chest TECHNIQUE: Volumetric scanning of the chest was performed. Using automated exposure control and adjustment of t he mA and/or kV according to patient size, radiation dose was kept as low as reasonably achievable to obtain optimal diagnostic quality images. FINDINGS: Diffuse perihilar and bibasilar infiltrates are noted consistent with moderate to severe pulmonary ed rose mary versus pneumonia. Clinical correlation is recommended. Small to moderate sized bilateral pleura l effusions are noted. The heart is enlarged. Coronary artery calcifications are noted. No pulmonar y nodule or mass is noted. Degenerative changes are noted throughout the thoracic spine. CONCLUSION: 1. Diffuse perihilar and bibasilar infiltrates consistent with moderate to severe pulmonary edema bandar shirley pneumonia. Clinical correlation is recommended. 2. Small to moderate sized bilateral pleural effusions. 3. Cardiomegaly and coronary artery calcifications. Trell Stanton MD on December 13, 2016 at 15:08 Board Certified Radiologist. This report was verified electronically.
[2016-12-13] MEDS ORDERED: LORazepam 2 MG/ML VIAL IV PUSH PRN (15:30)
[2016-12-13] MEDS ORDERED: HYDROmorphone HCL PF 1 MG/ML VIAL IV PUSH PRN (15:30)
[2016-12-13] MEDS: RESP: ALBUTEROL 2.5 MG/IPRATROPIUM 0.5 MG NEB (SCH) NEB ×2 (15:43→22:29)
[2016-12-13] MEDS ORDERED: BENZOCAINE 20% TOPICAL SPRAY 60 ML CAN ONE (15:53)
--- NOTE | 2016-12-13 15:57 | RADRPT ---
EXAM DATE/TIME: 12/13/2016 15:44 [facility] COMPARISON: CHEST EXPIRATION ONLY, November 29, 2016, 12:26. INDICATIONS : Post right thoracentesis MEDICAL HISTORY : None. SURGICAL HISTORY : None. ENCOUNTER: Initial ACUITY: 1 day PAIN SCORE: 0/10 LOCATION: Right chest FINDINGS: The heart remains enlarged. There is no pneumothorax following thoracentesis. Moderate congestive f ailure is evident. CONCLUSION: There is no pneumothorax following thoracentesis. Dhaval Rodriguez MD FACR on December 13, 2016 at 15:53 Board Certified Radiologist. This report was verified electronically.
--- NOTE | 2016-12-13 20:33 | EKG ---
Date Performed: 12/13/2016 Time Performed: 09:53:53 PTAGE: 66 years EKG: Sinus rhythm MARKED LEFT AXIS DEVIATION RIGHT BUNDLE BRANCH BLOCK ANTEROSEPTAL MYOCARDIAL INFARCTION Nonspecific T wave changes anterolaterally When compared to previous tracing, no significant change. ABNORMAL ECG PREVIOUS TRACING : 11/22/2016 19.23 DOCTOR: Francois Hewitt Interpretating Date/Time 12/13/2016 20:32:07
[2016-12-13] MEDS ORDERED: SODIUM CHLOR 0.9% 1000 ML INJ 1,000 ML IV PRN ×3 (21:38)
[2016-12-13] MEDS ORDERED: ACETAMINOPHEN 325 MG TAB PO PRN (21:45)
[2016-12-13] MEDS ORDERED: diphenhydrAMINE HCL 25 MG CAP PO PRN (21:45)
[2016-12-13] MEDS ORDERED: GENTAMICIN SULFATE (DIALYSIS USE ONLY) 20 MG/2 ML VIAL IV PRN (21:45)
[2016-12-13] MEDS ORDERED: ALBUMIN HUMAN 25% 25 GM/100 ML BAGP IV PRN (21:45)
[2016-12-13] MEDS ORDERED: NITROGLYCERIN 0.4 MG SL 25 TABS/BTL SL PRN (21:45)
[2016-12-13] MEDS ORDERED: cloNIDine HCL 0.1 MG TAB PO PRN (21:45)
[2016-12-13] MEDS ORDERED: ONDANSETRON HCL 4 MG/2 ML VIAL IV PRN (21:45)
[2016-12-13] MEDS ORDERED: HEPARIN SODIUM - IV 10,000 UNITS/10 ML VIAL IVF PRN (21:45)
[2016-12-13] MEDS ORDERED: SODIUM CHLORIDE 0.9% FLUSH 5 ML FLUSH IVF PRN (21:45)
[2016-12-13] MEDS ORDERED: MANNITOL 12.5 GM/50 ML VIAL IV PRN (21:45)
[2016-12-13] MEDS ORDERED: HEPARIN SODIUM - IV 10,000 UNITS/10 ML VIAL PRN (21:45)
[2016-12-13] MEDS ORDERED: GELATIN 12 MM/7 MM FOAM TOP PRN (21:45)
[2016-12-13] MEDS: PIPERACIL-TAZO 2.25 GM PREMIX 50 ML IV SCH (22:13)
[2016-12-13] MEDS: PREGABALIN 25 MG CAP PO SCH (22:14)
[2016-12-13] MEDS: METOPROLOL TARTRATE 50 MG TAB PO SCH (22:14)
[2016-12-13] MEDS: TEMAZEPAM 15 MG CAP PO PRN (22:21)
--- NOTE | 2016-12-13 22:35 | MB ---
cc: GENESIS CANO MD DATE OF CONSULTATION 12/13/16 REASON FOR CONSULTATION End-stage renal disease on hemodialysis, for management. HISTORY OF PRESENT ILLNESS This is a 66-year-old male with past medical history of hypertension, ischemic heart disease, history of membranous glomerulonephritis with end-stage renal disease on hemodialysis, chronic anemia, history of pleural effusion which was tapped recently, osteoarthritis who came to the hospital with complaint of sudden onset of shortness of breath. I was called to see the patient for the management of dialysis. He has dialysis Friday, and Friday. He has his hemodialysis done yesterday and 3 liters of fluid was removed. According to the patient, he started to develop sudden shortness of breath which started late night and lock up worker and then decided to come to the hospital. The patient was recently discharged from the hospital about two weeks ago and at that time he was admitted with shortness of breath and he was found to have pleural effusion and he has thoracentesis done on both sides. He had 1.8 liters removed from the right side and 500 then was removed from the left side. The patient has mild cough. There is no sputum. Denies any chest pain. No history of fever. No sore throat. No palpitation. Upon arrival, his oxygen saturation was low only 80% on room air. PAST MEDICAL HISTORY 1. Hypertension 2. 3. Ischemic heart disease, 4. Osteoarthritis, 5. Hyperlipidemia. 6. Membranous glomerulonephritis 7. End-stage renal disease on hemodialysis. PAST SURGICAL HISTORY 1. History of the AV fistula surgery, 2. Cholecystectomy 3. Thoracentesis 4. Cardiac catheterization with stenting 5. Tonsillectomy. REVIEW OF SYSTEMS The patient denies any history of fever. No sore throat, no headache, dizziness, no blurring of vision. He has this sudden worsening of shortness of breath associated with cough which is mainly dry. There is no chest pain. No palpitation. No nausea, vomiting. No abdominal pain. No history of diarrhea. SOCIAL HISTORY The patient is lives with his . There is no history of smoking or alcoholism. FAMILY HISTORY Noncontributory. ALLERGIES HMG-CoA REDUCTASE MORPHINE MEDICATIONS Currently he is on following medications 1. Metoprolol 50 mg b.i.d. 2. Lyrica 50 mg twice a day . 3. Allopurinol 100 mg daily. 4. Aspirin 81 mg once a day. 5. Atarax 25 mg once a day. 6. Nifedipine 60 mg daily. 7. Prednisone 10 mg once a day. 8. Synthroid 25 mcg daily. 9. Zosyn 2.25 grams IV q. 8-hour. 10. DuoNeb as needed. 11. Ativan as needed. 12. Dilaudid as needed. PHYSICAL EXAMINATION GENERAL: On examination the patient is awake, alert. He is in a moderate respiratory distress. VITAL SIGNS: Last blood pressure is 124/63 temperature is 97, oxygen saturation on 2 liters nasal cannula 96-98%. HEENT: Pupils equally reacting to light. Nonicteric sclerae. Conjunctivae pale. NECK: Supple. JVD is not elevated. LUNGS: The patient has bilateral decreased air entry with basilar rales, scattered wheezing. HEART: S1 S2, regular rhythm. ABDOMEN: Soft, lax. There is no tenderness. Bowel sounds positive. EXTREMITIES: He has 1+ edema more in the left side LABORATORY DATA WBC count is 11.7, hemoglobin 9.4, platelet count 271, neutrophils 87.7%. Sodium 137, Potassium 5.2, chloride 101, bicarb 25.8, BUN 30, creatinine 4.88, glucose 81. Lactic acid is 1.7, AST ALT normal. Troponin I 0.03. Albumin is 3.0, total protein 7.2. Lipase 118, INR is 0.9. pending to four. IMAGING STUDIES The patient had chest x-ray done which shows right lower lung field possible infiltrate versus effusion. CT scan of the chest was done which shows that the patient has a small to moderate size bilateral effusion and infiltrate versus pulmonary edema. bibasilar cardiomegaly, coronary artery calcification. Ultrasound of the lower extremities was done which was negative for deep vein thrombosis. Ultrasound of the chest done and results are pending. ASSESSMENT/PLAN 1. Shortness of breath, possible pneumonia and pleural effusion. 2. End-stage renal disease on hemodialysis. 3. Hypertension 4. Ischemic heart disease 5. Chronic anemia. The patient has recent thoracentesis done and now it seems like he has pneumonia. The patient started on antibiotic. Ultrasound chest was done to find out the quantity of the fluid. He possibly may need thoracentesis again. Continue antibiotic. Follow the culture results. The patient had hemodialysis yesterday and we will dialyze him tomorrow morning. Thank you for the consultation and I will follow the patient while in the hospital. MD LATA Jennings/ /9:34 PM /10:03 PM [email or web address]
[2016-12-14] VITALS (8 sets, daily range): BP systolic 126–146; BP diastolic 60–74; PULSE 10–113; RESP 16–20; TEMP 97.8–98.8; O2SAT 91–100
[2016-12-14] MEDS: PIPERACIL-TAZO 2.25 GM PREMIX 50 ML IV SCH ×3 (06:33→21:16)
[2016-12-14] MEDS: LEVOTHYROXINE SODIUM 25 MCG TAB PO SCH (06:33)
[2016-12-14] MEDS: RESP: ALBUTEROL 2.5 MG/IPRATROPIUM 0.5 MG NEB (SCH) NEB ×4 (07:23→20:07)
[2016-12-14 08:03] LABS: AUTOMATED NEUTROPHIL # 9.5 TH/MM3 (1.8-7.7); BASOPHIL # 0.2 TH/MM3 (0-0.2); BASOPHIL % 1.3 % (0.0-2.0); EOSINOPHIL # 0.1 TH/MM3 (0-0.4); EOSINOPHIL % 1.2 % (0.0-4.0); HEMATOCRIT 25.8 % (39.0-51.0); HEMO FLAGS DIFF FINAL; LYMPH % 6.7 % (9.0-44.0); LYMPHOCYTE # 0.8 TH/MM3 (1.0-4.8); MEAN CELL VOLUME 88.9 FL (80.0-100.0); MEAN CORPUSCULAR HEMOGLOBIN 29.5 PG (27.0-34.0); MEAN CORPUSCULAR HGB CONC 33.2 % (32.0-36.0); MONO % 7.3 % (0.0-8.0); NEUT % 83.5 % (16.0-70.0); PLATELET COUNT 244 TH/MM3 (150-450); RED BLOOD COUNT 2.91 MIL/MM3 (4.50-5.90); RED CELL DISTRIBUTION WIDTH 17.6 % (11.6-17.2); WHITE BLOOD COUNT 11.4 TH/MM3 (4.0-11.0)
[2016-12-14 08:18] LABS: BICARBONATE 25.6 MEQ/L (21.0-32.0); POTASSIUM 5.7 MEQ/L (3.5-5.1)
[2016-12-14] MEDS: NIFEdipine 60 MG SUSTAINED RELEASE TAB PO SCH ×2 (08:31→08:32)
[2016-12-14] MEDS: PREGABALIN 25 MG CAP PO SCH ×2 (08:31→21:16)
[2016-12-14] MEDS: METOPROLOL TARTRATE 50 MG TAB PO SCH ×2 (08:31→21:17)
[2016-12-14] MEDS: ALLOPURINOL 100 MG TAB PO SCH (08:31)
[2016-12-14] MEDS: ASPIRIN EC 81 MG TABEC PO SCH (08:31)
[2016-12-14] MEDS: hydrOXYzine HCL 25 MG TAB PO SCH (08:31)
[2016-12-14] MEDS ORDERED: predniSONE 10 MG TAB PO SCH (09:00)
[2016-12-14] MEDS ORDERED: methylPREDNISolone SOD SUCC 125 MG/2 ML VIAL IV PUSH ONE (09:15)
[2016-12-14] MEDS ORDERED: HYDROmorphone HCL PF 1 MG/ML VIAL IV PUSH PRN (09:15)
[2016-12-14] MEDS ORDERED: LORATADINE 10 MG TAB PO ONE (09:15)
[2016-12-14] MEDS ORDERED: guaiFENesin E.R. 600 MG TAB PO ONE (09:30)
[2016-12-14] MEDS: LORazepam 0.5 MG TAB PO PRN ×2 (10:04→15:33)
[2016-12-14] MEDS: FLUTICASONE PROPIONATE 50 MCG/ACT 16 GM NASAL SPRAY EACH NARE SCH (10:04)
[2016-12-14] MEDS: EPOETIN ALFA 10,000 UNITS/ML VIAL IV PRN (12:26)
--- NOTE | 2016-12-14 12:36 | HHI.PR ---
Subjective Remarks coughing up some blood. congestion. unable to eat. says he is no code. Objective Vitals looks miserable. mouth full of dry blood. yankaur full of dry blood heart reg lung rhonci/wheeze bilaterally abd s/nt ext no edema. Vital Signs Date Time Temp Pulse Resp B/P Pulse Ox O2 Delivery O2 Flow Rate FiO2 12/14/16 08:00 98.4 103 17 131/66 91 12/14/16 08:00 104 12/14/16 07:26 91 Nasal Cannula 2.00 12/14/16 04:00 98.1 10 17 146/73 12/14/16 00:00 98.4 83 18 138/69 96 12/13/16 22:30 Nasal Cannula 2.00 12/13/16 20:00 97.3 87 17 124/68 97 12/13/16 20:00 87 12/13/16 18:14 87 16 124/63 98 Nasal Cannula 2 12/13/16 16:45 82 16 130/64 96 Nasal Cannula 2 12/13/16 15:46 97.0 85 16 114/67 97 12/13/16 14:54 96.4 93 20 119/67 95 12/13/16 12/13/16 12/14/16 15:00 23:00 07:00 Intake Total 240 ml 230 ml Output Total 0 ml Balance 240 ml 230 ml Intake Oral 240 ml 120 ml IV Total 110 ml Output Urine Total 0 ml # Voids 0 Result Diagram: 12/14/16 0626 12/14/16 0626 Imaging Last Impressions Chest X-Ray 12/13/16 1007 Signed Impressions: Service Date/Time: Tuesday, December 13, 2016 10:27 - CONCLUSION: 1. Developing airspace process in the right lower lung field concerning for a pneumonic infiltrate. 2. Persistent left basilar consolidation/effusion with some regional interstitial prominence. Hector Morrison MD A/P Problem List: (1) Hemoptysis Status: Acute Plan: Pt developed esrd 01/16 and renal bx showed membranous glomerulonephritis He has positive ANCA. ..Positive myeloperoxidase. So this can be associated with small-vessel vasculitidesm,microscopic polyangiitis, polyarteritis nodosa, Churg-Jose Carlos syndrome, necrotizing and crescentic glomerulonephritis and occasionally granulomatosis with polyangiitis (Jazmine's). He has not done well and is frequently admitted. Recently had infected permcath tip and has been getting abx with HD. Also on his most recent admission he required thoracentesis x 4(2 on each side) with rapid reaccumulation of fluid. He gets at least 3L off with each hemodialysis. His last Echo showed only diastolic dysfunction. He has recently had lung infiltrates and given courses of abx. Now presents with hemoptysis, recurrent large effusions, and bilateral infiltrates right worse than left. Last night 1.3 L thoracentesis on the right taken acutely. So differential of pt's respiratory sx's seems to be pneumonia, pulmonary edema , and vasculitis related to the known positive ANCA(mpo). discussed with dr Robertson. HD now cont abx trial of IV solumedrol gram stain and cx claritin/flonase as pt complains of alot of postnasal drainage He wants to be DNR. I spoke with his family. they agree. We will give him a change to rally from this critical situation. If he is unable to make a recovery they want hospice. Dr Mascorro pulmonary is consulted as well. (2) Hypoxia Status: Acute Plan: see above (3) Membranous glomerulonephritis Status: Chronic Plan: see above (4) Pleural effusion Status: Acute Plan: - See above. (5) ESRD (end stage renal disease) on dialysis Status: Chronic Plan: - Pt follows with Dr. Robertson who has been consulted - He is on HD schedule (6) HTN (hypertension), benign Status: Chronic Plan: - Home meds continued (7) CAD (coronary artery disease) Status: Chronic Plan: - Home meds continued Francois Woo MD Dec 14, 2016 12:36
[2016-12-14] MEDS: HYDROmorphone HCL PF 1 MG/ML VIAL IV PUSH PRN (15:39)
[2016-12-14] MEDS: methylPREDNISolone SOD SUCC 125 MG/2 ML VIAL IV PUSH SCH (17:42)
--- NOTE | 2016-12-14 17:47 | MB ---
cc: Collin VIEIRA M.D. DATE OF CONSULTATION 12/14/16 HISTORY OF PRESENT ILLNESS Mr. Lynne is a 65-year-old white male, chronic renal failure, end-stage kidney disease, who is on chronic hemodialysis several days a week. He has been in hospital frequently recently for recurrent pleural effusion and, during a hospitalization in November, he had four thoracenteses. He has had another one on presentation here, each time with drainage of anywhere from 500-1500 mL of fluid. Cultures on those have been negative. It appears to be related to his underlying heart disease and kidney disease. Most of this information is taken from the chart. It is a complex history. He has a history of glomerulonephritis, end-stage renal disease. He also has positive ANCA and NPO antibodies suggesting a vasculitis. 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 Boo who is a local emergency crew supervisor. The patient presented on this occasion again with shortness of breath, had a large effusion that was drained, but no analyzes were sent because of the recent analyzes being negative. The patient was significantly improved. He is currently in dialysis. Breathing is improved. He has had no purulent sputum. There is a question of hemoptysis, although apparently she has had some bloody emesis. It is not clear if there is a distinct difference in these. She has not had any significant prior pulmonary disease other than these recurrent effusions. Apparently no suggestion of pneumonia prior to admission and the chest CT scan he had looks more like pulmonary edema with perihilar infiltrates and small effusions. PAST MEDICAL HISTORY Additional past history 1. Degenerative arthritis 2. Atherosclerotic vascular disease 3. An echo which has revealed a dilated cardiomyopathy with an EF in the 20-25% range. 4. Pulmonary hypertension on echocardiogram 5. Chronic renal failure, 6. Hypothyroidism 7. Prior cholecystectomy, 8. Tonsillectomy 9. Stent placement in 2004 for coronary artery disease. ALLERGIES MORPHINE HMG COA REDUCTASE INHIBITORS. MEDICATIONS Reviewed and recorded in his chart. SOCIAL HISTORY living with his . No smoking history or significant alcohol history. REVIEW OF SYSTEMS As noted above. He is also generally weak and debilitated. PHYSICAL EXAMINATION GENERAL: Elderly appearing gentleman older than his stated age. VITAL SIGNS: Afebrile, pulse is 100, respirations are 18-20, blood pressure 140/70, sat on 2 liters is 92%. HEENT: Sclerae pale, anicteric. NECK: Neck veins are not distended. CHEST: A little diminished but no congestion or wheezing. HEART: Soft systolic murmur. No audible S3. EXTREMITIES: No peripheral edema or cyanosis. DISCUSSION Mr. Lynne presents with recurring effusions, probably based on his underlying cardiovascular disease and renal disease, although he also has a history of ANCA positive vasculitis. I spoke to Dr. Woo. He had started him empirically on antibiotics for possible pneumonia and also steroids for possible vasculitis. I think those were both reasonable initial treatments and, of course, he is on dialysis as well. I do not think his fluid has to be drained again at this point. Hopefully, with continued dialysis and possibly some adjustment in the steroid dose things will remain stable. Further diagnostic and/or therapeutic intervention will depend on his ongoing clinical course and response to therapy. R. MD ALVARADO Galan/ /2:57 PM /5:24 PM
--- NOTE | 2016-12-14 20:14 | HHI.NPPN ---
Subjective History of Present Illness 66-year-old male with past medical history of hypertension, ischemic heart disease, history of membranous glomerulonephritis with end-stage renal disease on hemodialysis, chronic anemia, history of pleural effusion which was tapped recently, osteoarthritis who came to the hospital with complaint of sudden onset of shortness of breath. I was called to see the patient for the management of dialysis. He has dialysis Friday, and Friday. Additional Remarks Patient seen during HD, alert, has moderate SOB and cough with blood tinge sputum. Review of Systems Respiratory Lungs: SOB, Cough, Sputum, Wheeze Cardiovascular Cardiac: VEL[place]Z Objective Data Data 12/13/16 12/14/16 19:00 07:00 Intake Total 470 ml Output Total 0 ml Balance 470 ml Intake Oral 360 ml IV Total 110 ml Output Urine Total 0 ml # Voids 0 Vital Signs Date Time Temp Pulse Resp B/P Pulse Ox O2 Delivery O2 Flow Rate FiO2 12/14/16 20:09 97 Nasal Cannula 3.00 12/14/16 16:00 98.0 102 16 126/60 97 12/14/16 12:00 98.8 113 20 146/74 92 12/14/16 08:00 98.4 103 17 131/66 91 12/14/16 08:00 104 12/14/16 07:26 91 Nasal Cannula 2.00 12/14/16 04:00 98.1 10 17 146/73 12/14/16 00:00 98.4 83 18 138/69 96 12/13/16 22:30 Nasal Cannula 2.00 -: 12/14/16 0626 12/14/16 0626 Microbiology 12/14/16 Gram Stain, Received Pending 12/14/16 Sputum Culture, Received Pending Physical Exam General Appearance: No Acute Distress, Comfortable Eyes Eye Exam: Pupils Equal Throat Throat Exam: Oral Mucosa [place] & Moist Pulmonary Resp Exam: Crackles, Rhonchi, Sputum, Decreased Bases, Diminished Breath Sounds Cardiology CV Exam: Regular, Normal Sinus Rhythm Gastrointestinal/Abdomen GI Exam: Soft, Non-Tender, Bowel Sounds Present Extremeties Extremities Exam: Trace Edema Neurologic Neuro Exam: Alert, Awake Psychiatric Psych Exam: Appropriate Responses Assessment/Plan Assessment Summary: Anemia of CKD, Hypertension, End Stage Renal Disease Problem List: (1) P-ANCA and MPO antibodies positive (2) Hyperkalemia (3) Pleural effusion, bilateral (4) Hypoxia (5) HTN (hypertension), benign (6) Hemoptysis (7) ESRD (end stage renal disease) on dialysis Plan Patient was seen by Pulmonary. Continue antibiotics. Also started on steroid, has ANCA positive in past, check complements and ANCA level. Need to rule out possible Deidra Granulomatosis. HD done and BP was low, removed 3 liters. Caio Robertson MD Dec 14, 2016 20:14
[2016-12-14] MEDS: guaiFENesin E.R. 600 MG TAB PO SCH (21:16)
[2016-12-14] MEDS: TEMAZEPAM 15 MG CAP PO PRN (21:17)
[2016-12-15] VITALS (10 sets, daily range): BP systolic 96–128; BP diastolic 51–73; PULSE 77–97; RESP 18–20; TEMP 97.1–98.3; O2SAT 91–98
[2016-12-15] MEDS: methylPREDNISolone SOD SUCC 125 MG/2 ML VIAL IV PUSH SCH ×4 (00:06→20:38)
[2016-12-15] MEDS: PIPERACIL-TAZO 2.25 GM PREMIX 50 ML IV SCH ×4 (05:51→20:39)
[2016-12-15] MEDS: LEVOTHYROXINE SODIUM 25 MCG TAB PO SCH (05:51)
[2016-12-15] MEDS: LORazepam 0.5 MG TAB PO PRN ×2 (06:08→20:39)
[2016-12-15] MEDS: RESP: ALBUTEROL 2.5 MG/IPRATROPIUM 0.5 MG NEB (SCH) NEB ×4 (07:37→19:48)
[2016-12-15 08:36] LABS: BICARBONATE 29.4 MEQ/L (21.0-32.0); POTASSIUM 4.8 MEQ/L (3.5-5.1)
[2016-12-15] MEDS: hydrOXYzine HCL 25 MG TAB PO SCH (09:55)
[2016-12-15] MEDS: METOPROLOL TARTRATE 50 MG TAB PO SCH ×2 (09:55→20:39)
[2016-12-15] MEDS: PREGABALIN 25 MG CAP PO SCH ×2 (09:55→20:39)
[2016-12-15] MEDS: LORATADINE 10 MG TAB PO SCH (09:55)
[2016-12-15] MEDS: ALLOPURINOL 100 MG TAB PO SCH (09:55)
[2016-12-15] MEDS: NIFEdipine 60 MG SUSTAINED RELEASE TAB PO SCH (09:55)
[2016-12-15] MEDS: guaiFENesin E.R. 600 MG TAB PO SCH ×2 (09:55→20:39)
[2016-12-15] MEDS: ASPIRIN EC 81 MG TABEC PO SCH (09:55)
[2016-12-15] MEDS: FLUTICASONE PROPIONATE 50 MCG/ACT 16 GM NASAL SPRAY EACH NARE SCH (09:56)
--- NOTE | 2016-12-15 11:16 | HHI.PR ---
Subjective Remarks seems more comfortable today. Objective Vitals heart reg lung rhonci bang abd s/nt ext leg edema Vital Signs Date Time Temp Pulse Resp B/P Pulse Ox O2 Delivery O2 Flow Rate FiO2 12/15/16 08:09 97.1 86 18 107/59 94 12/15/16 07:37 91 Nasal Cannula 3.00 12/15/16 04:00 97.4 83 18 128/73 94 12/15/16 00:00 97.8 77 20 119/61 98 12/14/16 20:09 97 Nasal Cannula 3.00 12/14/16 20:00 88 12/14/16 20:00 97.8 90 20 130/69 100 12/14/16 16:00 98.0 102 16 126/60 97 12/14/16 12:00 98.8 113 20 146/74 92 12/14/16 12/14/16 12/15/16 15:00 23:00 07:00 Intake Total 606 ml 110 ml 230 ml Balance 606 ml 110 ml 230 ml Intake Oral 600 ml 120 ml IV Total 6 ml 110 ml 110 ml # Voids 0 0 # Bowel Movements 0 0 Result Diagram: 12/14/16 0626 12/15/16 0734 Imaging Last Impressions Chest X-Ray 12/13/16 1007 Signed Impressions: Service Date/Time: Tuesday, December 13, 2016 10:27 - CONCLUSION: 1. Developing airspace process in the right lower lung field concerning for a pneumonic infiltrate. 2. Persistent left basilar consolidation/effusion with some regional interstitial prominence. Hector Morrison MD A/P Problem List: (1) Hemoptysis Status: Acute Plan: Pt developed esrd 01/16 and renal bx showed membranous glomerulonephritis He has positive ANCA. ..Positive myeloperoxidase. So this can be associated with small-vessel vasculitidesm,microscopic polyangiitis, polyarteritis nodosa, Churg-Jose Carlos syndrome, necrotizing and crescentic glomerulonephritis and occasionally granulomatosis with polyangiitis (Jazmine's). He has not done well and is frequently admitted. Recently had infected permcath tip and has been getting abx with HD. Also on his most recent admission he required thoracentesis x 4(2 on each side) with rapid reaccumulation of fluid. He gets at least 3L off with each hemodialysis. His last Echo showed only diastolic dysfunction. He has recently had lung infiltrates and given courses of abx. Now presents with hemoptysis, recurrent large effusions, and bilateral infiltrates right worse than left. Last night 1.3 L thoracentesis on the right taken acutely. So differential of pt's respiratory sx's seems to be pneumonia, pulmonary edema , and vasculitis related to the known positive ANCA(mpo). discussed with dr Robertson. HD now cont abx trial of IV solumedrol gram stain and cx claritin/flonase as pt complains of alot of postnasal drainage He wants to be DNR. I spoke with his family. they agree. We will give him a change to rally from this critical situation. If he is unable to make a recovery they want hospice. overall today seems to be improved. cont rx. (2) Hypoxia Status: Acute Plan: see above (3) Membranous glomerulonephritis Status: Chronic Plan: see above (4) Pleural effusion Status: Acute Plan: - See above. (5) ESRD (end stage renal disease) on dialysis Status: Chronic Plan: - Pt follows with Dr. Robertson who has been consulted - He is on HD schedule (6) HTN (hypertension), benign Status: Chronic Plan: - Home meds continued (7) CAD (coronary artery disease) Status: Chronic Plan: - Home meds continued Francois Woo MD Dec 15, 2016 11:16
--- NOTE | 2016-12-15 11:46 | HHI.NPPN ---
Subjective History of Present Illness 66-year-old male with past medical history of hypertension, ischemic heart disease, history of membranous glomerulonephritis with end-stage renal disease on hemodialysis, chronic anemia, history of pleural effusion which was tapped recently, osteoarthritis who came to the hospital with complaint of sudden onset of shortness of breath. I was called to see the patient for the management of dialysis. He has dialysis Friday, and Friday. Additional Remarks Patient is alert, sitting on chair, not in distress, feeling better. Review of Systems Respiratory Lungs: SOB, Cough, Sputum, Wheeze Cardiovascular Cardiac: [place] Objective Data Data 12/14/16 12/15/16 19:00 07:00 Intake Total 606 ml 340 ml Balance 606 ml 340 ml Intake Oral 600 ml 120 ml IV Total 6 ml 220 ml # Voids 0 0 # Bowel Movements 0 0 Vital Signs Date Time Temp Pulse Resp B/P Pulse Ox O2 Delivery O2 Flow Rate FiO2 12/15/16 08:09 97.1 86 18 107/59 94 12/15/16 08:00 87 12/15/16 07:37 91 Nasal Cannula 3.00 12/15/16 04:00 97.4 83 18 128/73 94 12/15/16 00:00 97.8 77 20 119/61 98 12/14/16 20:09 97 Nasal Cannula 3.00 12/14/16 20:00 88 12/14/16 20:00 97.8 90 20 130/69 100 12/14/16 16:00 98.0 102 16 126/60 97 12/14/16 12:00 98.8 113 20 146/74 92 -: 12/14/16 0626 12/15/16 0734 Physical Exam General Appearance: No Acute Distress, Comfortable Eyes Eye Exam: Pupils Equal Throat Throat Exam: Oral Mucosa [place] & Moist Pulmonary Resp Exam: Crackles, Rhonchi, Sputum, Decreased Bases, Diminished Breath Sounds Cardiology CV Exam: Regular, Normal Sinus Rhythm Gastrointestinal/Abdomen GI Exam: Soft, Non-Tender, Bowel Sounds Present Extremeties Extremities Exam: Trace Edema Neurologic Neuro Exam: Alert, Awake Psychiatric Psych Exam: Appropriate Responses Assessment/Plan Assessment Summary: Anemia of CKD, Hypertension, End Stage Renal Disease Problem List: (1) P-ANCA and MPO antibodies positive (2) Hyperkalemia (3) Pleural effusion, bilateral (4) Hypoxia (5) HTN (hypertension), benign (6) Hemoptysis (7) ESRD (end stage renal disease) on dialysis Plan Patient was seen by Pulmonary. Continue antibiotics. Also started on steroid, has ANCA positive in past, Need to rule out possible Deidra Granulomatosis. HD done yesterday. BP is low, D/C Nifedipine. C3 is low, C4 is normal, Consider Cyclophosphamide and also need to see Rheumatology. He has appointment tomorrow as out patient. Caio Robertson MD Dec 15, 2016 11:46
[2016-12-15] MEDS: TEMAZEPAM 15 MG CAP PO PRN (20:39)
[2016-12-16] VITALS (9 sets, daily range): BP systolic 103–111; BP diastolic 55–58; PULSE 75–92; RESP 16–24; TEMP 97–98.3; O2SAT 90–99
[2016-12-16] MEDS: LORazepam 0.5 MG TAB PO PRN ×2 (02:31→21:57)
[2016-12-16] MEDS: HYDROmorphone HCL PF 1 MG/ML VIAL IV PUSH PRN (02:32)
[2016-12-16] MEDS: LEVOTHYROXINE SODIUM 25 MCG TAB PO SCH (05:41)
[2016-12-16] MEDS: PIPERACIL-TAZO 2.25 GM PREMIX 50 ML IV SCH ×3 (05:41→21:50)
--- NOTE | 2016-12-16 07:47 | RADRPT ---
EXAM DATE/TIME: 12/13/2016 14:48 [facility] COMPARISON: US GUIDED THORACENTESIS RIGHT, November 28, 2016, 15:00. INDICATIONS : Right pleural effusion. MEDICAL HISTORY : Myocardial infarction. Hypercholesterolemia. Hypertension. Degenerative disc. Dyspnea. ESRD. UTI. Pne umonia. Anemia. Depression. Anxiety. Anticoagulant therapy, Aspirin. SURGICAL HISTORY : Tonsillectomy. Coronary artery stent. Cholecystectomy. Cardiac cath. Thoracentesis. Dialysis. Blood t ransfusions. ENCOUNTER: Subsequent ACUITY: 2 weeks PAIN SCORE: 0/10 LOCATION: Right chest FLUID: Total volume of 1,350 cc of clear, yellow fluid was removed. Fluid was discarded. Thoracentesis was therapeutic only. TECHNIQUE: 1. Ultrasound guidance for thoracentesis. 2. Thoracentesis. The risks, benefits, and alternatives to ultrasound guided thoracentesis were explained to the patien t in lay simple terms, including the risk of bleeding and infection. Written and verbal informed con sent was obtained. Appropriate area for thoracentesis was marked under ultrasound guidance with the patient in the uprig ht position. Overlying skin was prepped and draped in the usual sterile fashion and with local anest hetic, a dermatotomy was made with an 11 blade scalpel. A 6 [place] thoracentesis catheter was placed in the pleural space and fluid was removed. Catheter was then removed and a sterile dressing applie d. There were no immediate complications. The patient tolerated the procedure well and the left the ultrasound suite in stable condition. Chest radiograph is to be obtained. CONCLUSION: Uncomplicated ultrasound guided right thoracentesis. Dhaval Rodriguez MD FACR on December 16, 2016 at 7:45 Board Certified Radiologist. This report was verified electronically.
[2016-12-16] MEDS: FLUTICASONE PROPIONATE 50 MCG/ACT 16 GM NASAL SPRAY EACH NARE SCH (08:58)
[2016-12-16] MEDS: ASPIRIN EC 81 MG TABEC PO SCH (09:00)
[2016-12-16] MEDS: guaiFENesin E.R. 600 MG TAB PO SCH ×2 (09:00→21:49)
[2016-12-16] MEDS: hydrOXYzine HCL 25 MG TAB PO SCH (09:00)
[2016-12-16] MEDS: PREGABALIN 25 MG CAP PO SCH ×2 (09:00→21:49)
[2016-12-16] MEDS: methylPREDNISolone SOD SUCC 125 MG/2 ML VIAL IV PUSH SCH ×2 (09:00→21:49)
[2016-12-16] MEDS: ALLOPURINOL 100 MG TAB PO SCH (09:00)
[2016-12-16] MEDS: METOPROLOL TARTRATE 50 MG TAB PO SCH ×2 (09:00→21:49)
[2016-12-16] MEDS: LORATADINE 10 MG TAB PO SCH (09:00)
[2016-12-16] MEDS: RESP: ALBUTEROL 2.5 MG/IPRATROPIUM 0.5 MG NEB (SCH) NEB ×4 (09:40→20:10)
--- NOTE | 2016-12-16 13:15 | HHI.PR ---
Subjective Remarks Pt sitting up in the chair, no acute issues or complaints Pt still coughing up some bloody phlegm Pt has not been ambulating much Still on 3L NC Objective Vitals Vital Signs Date Time Temp Pulse Resp B/P Pulse Ox O2 Delivery O2 Flow Rate FiO2 12/16/16 12:00 97.6 82 24 103/58 90 12/16/16 11:35 75 12/16/16 09:45 93 Nasal Cannula 3.00 12/16/16 08:00 97.5 77 16 109/55 94 12/16/16 04:00 98.3 78 17 105/56 90 12/16/16 00:00 97.0 83 18 107/58 90 12/15/16 20:10 97 12/15/16 20:00 97.1 89 20 106/59 95 12/15/16 19:50 93 Nasal Cannula 3.00 12/15/16 16:09 97.8 89 18 105/55 96 12/15/16 12/15/16 12/16/16 15:00 23:00 07:00 Intake Total 360 ml 208 ml 108 ml Output Total 0 ml Balance 360 ml 208 ml 108 ml Intake Oral 360 ml 0 ml IV Total 208 ml 108 ml Output Urine Total 0 ml # Voids 1 # Bowel Movements 1 Result Diagram: 12/14/16 0626 12/15/16 0734 Other Results Laboratory Tests Test 12/15/16 07:34 Sodium Level 138 MEQ/L Potassium Level 4.8 MEQ/L Chloride Level 99 MEQ/L Carbon Dioxide Level 29.4 MEQ/L Anion Gap 10 MEQ/L Blood Urea Nitrogen 41 MG/DL Creatinine 4.98 MG/DL Estimat Glomerular Filtration 12 ML/MIN Rate Random Glucose 138 MG/DL Calcium Level 8.6 MG/DL Complement C3 76 MG/DL Complement C4 11 MG/DL Imaging Last Impressions Chest X-Ray 12/13/16 1007 Signed Impressions: Service Date/Time: Tuesday, December 13, 2016 10:27 - CONCLUSION: 1. Developing airspace process in the right lower lung field concerning for a pneumonic infiltrate. 2. Persistent left basilar consolidation/effusion with some regional interstitial prominence. Hector Morrison MD Thoracentesis Ultrasound 12/13/16 0000 Signed Impressions: Service Date/Time: Tuesday, December 13, 2016 14:48 - CONCLUSION: Uncomplicated ultrasound guided right thoracentesis. Dhaval Rodriguez MD FACR Lower Extremity Ultrasound 12/13/16 0000 Signed Impressions: Service Date/Time: Tuesday, December 13, 2016 11:44 - CONCLUSION: No evidence of deep venous thrombosis within the lower extremities. Trell Stanton MD Chest CT 12/13/16 0000 Signed Impressions: Service Date/Time: Tuesday, December 13, 2016 14:39 - CONCLUSION: 1. Diffuse perihilar and bibasilar infiltrates consistent with moderate to severe pulmonary edema versus pneumonia. Clinical correlation is recommended. 2. Small to moderate sized bilateral pleural effusions. 3. Cardiomegaly and coronary artery calcifications. Trell Stanton MD Objective Remarks General: NAD, AAOx3 Chest: Decreased breath sounds at the right base Cardiac: Regular Abd: +BS, soft ND/NT Ext: No edema, TONIA hose in place A/P Problem List: (1) Hemoptysis Status: Acute Plan: - Pt developed ESRD in 01/16 and renal bx showed membranous glomerulonephritis - He has positive ANCA, Positive myeloperoxidase, which can be associated with small-vessel vasculitis, microscopic polyangiitis, polyarteritis nodosa, Churg-Jose Carlos syndrome, necrotizing and crescentic glomerulonephritis and occasionally granulomatosis with polyangiitis (Jazmine's ). - He has not done well and is frequently admitted. - Recently had infected permcath tip and has been getting abx with HD. - Also on his most recent admission he required thoracentesis x 4(2 on each side ) with rapid reaccumulation of fluid. He gets at least 3L off with each hemodialysis. - His last Echo showed only diastolic dysfunction. - He has recently had lung infiltrates and given courses of abx. - Now presented with hemoptysis, recurrent large effusions, and bilateral infiltrates right worse than left. - Pt had a right sided thoracentesis on 12/13 with removal of 1.3L. - DDx of pt's respiratory sx's seems to be pneumonia, pulmonary edema, and vasculitis related to the known positive ANCA(mpo). - Dr. Robertson is following, HD -Sa - Cont Abx - Solu-Medrol 60mg IV BID - C3 is low, C4 is normal - Gram stain and cx of sputum with heavy growth of normal respiratory donal at 24 hours. - Claritin/Flonase as pt complains of a lot of postnasal drainage - Pt is a DNR. If he is unable to make a recovery pt/family want hospice. - PT evaluation, pt may need SNF placement due to increased weakness. Consult Case Management in case he needs SNF placement. (2) Hypoxia Status: Acute Plan: - See above (3) Membranous glomerulonephritis Status: Chronic Plan: - See above (4) Pleural effusion Status: Acute Plan: - See above. (5) ESRD (end stage renal disease) on dialysis Status: Chronic Plan: - Pt follows with Dr. Robertson - He is on HD schedule (6) HTN (hypertension), benign Status: Chronic Plan: - Home meds continued (7) CAD (coronary artery disease) Status: Chronic Plan: - Procardia held due to low/normal BP Assessment and Plan Patient examined. Assessment and plan formulated with Mitra Marsh PA-C. I agree with the above. Mitra Marsh Dec 16, 2016 13:15 Cayetano Chang DO Dec 22, 2016 06:46
--- NOTE | 2016-12-16 18:21 | HHI.NPPN ---
Subjective History of Present Illness 66-year-old male with past medical history of hypertension, ischemic heart disease, history of membranous glomerulonephritis with end-stage renal disease on hemodialysis, chronic anemia, history of pleural effusion which was tapped recently, osteoarthritis who came to the hospital with complaint of sudden onset of shortness of breath. I was called to see the patient for the management of dialysis. He has dialysis Friday, and Friday. Additional Remarks Patient is alert, sitting on chair, not in distress, feeling better. Review of Systems Respiratory Lungs: SOB, Cough, Sputum, Wheeze Cardiovascular Cardiac: [place] Objective Data Data 12/15/16 12/16/16 19:00 07:00 Intake Total 360 ml 316 ml Output Total 0 ml Balance 360 ml 316 ml Intake Oral 360 ml 0 ml IV Total 316 ml Output Urine Total 0 ml # Voids 1 # Bowel Movements 1 Vital Signs Date Time Temp Pulse Resp B/P Pulse Ox O2 Delivery O2 Flow Rate FiO2 12/16/16 16:00 97.6 80 20 111/55 99 12/16/16 12:00 97.6 82 24 103/58 90 12/16/16 11:35 75 12/16/16 09:45 93 Nasal Cannula 3.00 12/16/16 08:00 97.5 77 16 109/55 94 12/16/16 04:00 98.3 78 17 105/56 90 12/16/16 00:00 97.0 83 18 107/58 90 12/15/16 20:10 97 12/15/16 20:00 97.1 89 20 106/59 95 12/15/16 19:50 93 Nasal Cannula 3.00 -: 12/14/16 0626 12/15/16 0734 Physical Exam General Appearance: No Acute Distress, Comfortable Eyes Eye Exam: Pupils Equal Throat Throat Exam: Oral Mucosa [place] & Moist Pulmonary Resp Exam: Crackles, Rhonchi, Sputum, Decreased Bases, Diminished Breath Sounds Cardiology CV Exam: Regular, Normal Sinus Rhythm Gastrointestinal/Abdomen GI Exam: Soft, Non-Tender, Bowel Sounds Present Extremeties Extremities Exam: Trace Edema Neurologic Neuro Exam: Alert, Awake Psychiatric Psych Exam: Appropriate Responses Assessment/Plan Assessment Summary: Anemia of CKD, Hypertension, End Stage Renal Disease Problem List: (1) P-ANCA and MPO antibodies positive (2) Hyperkalemia (3) Pleural effusion, bilateral (4) Hypoxia (5) HTN (hypertension), benign (6) Hemoptysis (7) ESRD (end stage renal disease) on dialysis Plan Patient was seen by Pulmonary. Continue antibiotics. Also started on steroid, has ANCA positive in past, Need to rule out possible Deidra Granulomatosis. next HD tomorrow await ANCA results on steroids Man Hunter MD Dec 16, 2016 18:21
[2016-12-16] MEDS: TEMAZEPAM 15 MG CAP PO PRN (21:57)
[2016-12-17 02:06] VITALS: BP 118/61; PULSE 80; RESP 18; TEMP 97.4; O2SAT 95
[2016-12-17 04:00] VITALS: BP 143/76; PULSE 88; RESP 22; TEMP 97.4; O2SAT 94
[2016-12-17] MEDS: LEVOTHYROXINE SODIUM 25 MCG TAB PO SCH (05:51)
[2016-12-17] MEDS: PIPERACIL-TAZO 2.25 GM PREMIX 50 ML IV SCH ×2 (05:51→13:36)
--- NOTE | 2016-12-17 06:52 | RADRPT ---
EXAM DATE/TIME: 12/17/2016 06:14 [facility] COMPARISON: CHEST SINGLE AP, December 13, 2016, 10:27. INDICATIONS : Weakness, short of breath, pleural effusion, coughing MEDICAL HISTORY : Myocardial infarction. renal failure, hypertension, anemia SURGICAL HISTORY : Tonsillectomy. Coronary artery stent. Cholecystectomy. thoracentesis right lung ENCOUNTER: Subsequent ACUITY: 2 weeks PAIN SCORE: 0/10 LOCATION: Bilateral chest FINDINGS: The cardiac silhouette is normal in transverse diameter. There is patchy alveolar disease bilaterally compatible with edema or pneumonia. The findings have worsened when compared with the prior examinat ion. Small bilateral pleural effusions are identified. CONCLUSION: 1. Worsening edema versus pneumonia with diffuse alveolar disease right greater than left Felix Elkins MD on December 17, 2016 at 6:50 Board Certified Radiologist. This report was verified electronically.
[2016-12-17 08:00] VITALS: BP 129/64; PULSE 89; RESP 18; TEMP 97.6; O2SAT 85
[2016-12-17] MEDS: PREGABALIN 25 MG CAP PO SCH (08:15)
[2016-12-17] MEDS: FLUTICASONE PROPIONATE 50 MCG/ACT 16 GM NASAL SPRAY EACH NARE SCH (08:15)
[2016-12-17] MEDS: ASPIRIN EC 81 MG TABEC PO SCH (08:16)
[2016-12-17] MEDS: hydrOXYzine HCL 25 MG TAB PO SCH (08:16)
[2016-12-17] MEDS: ALLOPURINOL 100 MG TAB PO SCH (08:16)
[2016-12-17] MEDS: guaiFENesin E.R. 600 MG TAB PO SCH (08:16)
[2016-12-17] MEDS: LORATADINE 10 MG TAB PO SCH (08:16)
[2016-12-17] MEDS: methylPREDNISolone SOD SUCC 125 MG/2 ML VIAL IV PUSH SCH (08:16)
[2016-12-17] MEDS: METOPROLOL TARTRATE 50 MG TAB PO SCH (08:16)
[2016-12-17 08:33] VITALS: O2SAT 92
[2016-12-17] MEDS: RESP: ALBUTEROL 2.5 MG/IPRATROPIUM 0.5 MG NEB (SCH) NEB ×2 (08:33→12:38)
[2016-12-17] MEDS: LORazepam 0.5 MG TAB PO PRN ×2 (08:58→13:46)
--- NOTE | 2016-12-17 10:11 | HHI.NPPN ---
Subjective History of Present Illness 66-year-old male with past medical history of hypertension, ischemic heart disease, history of membranous glomerulonephritis with end-stage renal disease on hemodialysis, chronic anemia, history of pleural effusion which was tapped recently, osteoarthritis who came to the hospital with complaint of sudden onset of shortness of breath. I was called to see the patient for the management of dialysis. He has dialysis Friday, and Friday. Additional Remarks Patient is alert, sitting on chair, not in distress, feeling better. Review of Systems Respiratory Lungs: SOB, Cough, Sputum, Wheeze Cardiovascular Cardiac: V[place] Objective Data Data 12/16/16 12/17/16 19:00 07:00 Intake Total 439 ml 200 ml Output Total 0 ml Balance 439 ml 200 ml Intake Oral 385 ml IV Total 54 ml 200 ml Output Urine Total 0 ml # Voids 2 # Bowel Movements 0 0 Vital Signs Date Time Temp Pulse Resp B/P Pulse Ox O2 Delivery O2 Flow Rate FiO2 12/17/16 08:33 92 Nasal Cannula 4.00 12/17/16 08:18 93 Nasal Cannula 3.00 12/17/16 08:00 97.6 89 18 129/64 85 12/17/16 04:00 97.4 88 22 143/76 94 12/17/16 02:06 97.4 80 18 118/61 95 12/16/16 21:30 97.7 92 20 110/57 98 12/16/16 20:10 95 Nasal Cannula 3.00 12/16/16 16:00 97.6 80 20 111/55 99 12/16/16 12:00 97.6 82 24 103/58 90 12/16/16 11:35 75 -: 12/14/16 0626 12/15/16 0734 Physical Exam General Appearance: No Acute Distress, Comfortable Eyes Eye Exam: Pupils Equal Throat Throat Exam: Oral Mucosa [place] & Moist Pulmonary Resp Exam: Crackles, Rhonchi, Sputum, Decreased Bases, Diminished Breath Sounds Cardiology CV Exam: Regular, Normal Sinus Rhythm Gastrointestinal/Abdomen GI Exam: Soft, Non-Tender, Bowel Sounds Present Extremeties Extremities Exam: Trace Edema Neurologic Neuro Exam: Alert, Awake Psychiatric Psych Exam: Appropriate Responses Assessment/Plan Assessment Summary: Anemia of CKD, Hypertension, End Stage Renal Disease Problem List: (1) P-ANCA and MPO antibodies positive (2) Hyperkalemia (3) Pleural effusion, bilateral (4) Hypoxia (5) HTN (hypertension), benign (6) Hemoptysis (7) ESRD (end stage renal disease) on dialysis Plan Patient was seen by Pulmonary. Continue antibiotics. Also started on steroid, has ANCA positive in past, Need to rule out possible Deidra Granulomatosis. HD progress noted UF 3-4 L as tolerated d/w Man Goncalves MD Dec 17, 2016 10:10
[2016-12-17] MEDS: EPOETIN ALFA 10,000 UNITS/ML VIAL IV PRN (11:29)
[2016-12-17] MEDS ORDERED: methylPREDNISolone SOD SUCC 125 MG/2 ML VIAL IV PUSH SCH (12:00)
[2016-12-17 13:00] VITALS: BP 109/55; PULSE 84; RESP 16; TEMP 97.6; O2SAT 88
[2016-12-17] MEDS ORDERED: HYOSCYAMINE 0.5 MG/ML AMP IVP ONE (14:00)
[2016-12-17] MEDS ORDERED: HYOSCYAMINE 0.5 MG/ML AMP IVP PRN (14:00)
[2016-12-17] MEDS ORDERED: LEVS0.124 SL (15:01)
[2016-12-17] MEDS ORDERED: LORA-474 PO (15:01)
[2016-12-17] MEDS ORDERED: DILA2TAB2 PO (15:01)
--- NOTE | 2016-12-17 15:09 | HHI.DS ---
Discharge Summary Admission Date Dec 13, 2016 at 12:27 Discharge Date: Dec 17, 2016 Admitting Diagnosis Acute hypoxia with HCAP and pleural effusions (1) Hemoptysis Diagnosis: Principal (2) Hypoxia Diagnosis: Principal (3) Membranous glomerulonephritis Diagnosis: Secondary (4) Pleural effusion Diagnosis: Secondary (5) ESRD (end stage renal disease) on dialysis Diagnosis: Secondary (6) HTN (hypertension), benign Diagnosis: Secondary (7) CAD (coronary artery disease) Diagnosis: Secondary Consultants Dr. Carolyn Robertson - Nephrology Dr. Dhaval Mascorro - Pulmonary Brief History Mr. Lynne is a 66 WM well known to our service. 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 Pt was recently admitted to [facility] 3 weeks ago with suspected bacteremia related to his Permcath which grew staphylococcus species. He had noted pleural effusions during that admission and underwent right sided thoracentesis on 11/23 with removal of 1,000mL of clear, yellow fluid. Pt had a left sided thoracentesis on 11/25 with removal of 1,000cc of clear, yellow fluid. He continued to have issues with SOB and Chest CT was ordered (11/27) which noted moderate-sized bilateral pleural effusions right greater than left, consolidation in the right lower lobe, right upper lobe and perihilar region, and mild cardiomegaly. Pt underwent repeat diagnostic and therapeutic thoracentesis on the right on 11/28 with removal of 1,800cc of fluid and left side on 11/29 with removal of 500cc of clear yellow fluid. Fluid analysis revealed that by Light's criteria it is an exudative effusion. Pt had a second left thoracentesis on 11/29 with removal of another 1.8L of fluid. Pt reports that he had been doing fairly well up until 4 days ago after his dialysis on Friday he noticed increased LE edema, which he had not had problems with previously. Then last night he started having increased cough and phlegm production. He coughed up some blood tinged sputum this morning. He has not missed any dialysis. He has had a mild sinus congestion/runny nose but denies any sore throat, fevers or chills. No ill contacts noted. He presented to the ED on 12/13/16 because of increased SOB and feeling like couldn't catch his breath. Pt denies any chest pain, palpitations, dizziness or weakness. Pts oxygen saturations was at 80% upon arrival to the ED but this has improved with supplemental O2 @ 4L. He is not on any supplemental O2 at home. CBC/BMP: 12/14/16 0626 12/15/16 0734 Significant Findings Laboratory Tests Test 12/15/16 07:34 Blood Urea Nitrogen 41 MG/DL (7-18) Creatinine 4.98 MG/DL (0.60-1.30) Estimat Glomerular Filtration 12 ML/MIN (>89) Rate Random Glucose 138 MG/DL (74-106) Complement C3 76 MG/DL (90-180) Imaging Last Impressions Chest X-Ray 12/17/16 0600 Signed Impressions: Service Date/Time: Saturday, December 17, 2016 06:14 - CONCLUSION: 1. Worsening edema versus pneumonia with diffuse alveolar disease right greater than left Felix Elkins MD Thoracentesis Ultrasound 12/13/16 0000 Signed Impressions: Service Date/Time: Tuesday, December 13, 2016 14:48 - CONCLUSION: Uncomplicated ultrasound guided right thoracentesis. Dhaval Rodriguez MD FACR Lower Extremity Ultrasound 12/13/16 0000 Signed Impressions: Service Date/Time: Tuesday, December 13, 2016 11:44 - CONCLUSION: No evidence of deep venous thrombosis within the lower extremities. Trell Stanton MD Chest CT 12/13/16 0000 Signed Impressions: Service Date/Time: Tuesday, December 13, 2016 14:39 - CONCLUSION: 1. Diffuse perihilar and bibasilar infiltrates consistent with moderate to severe pulmonary edema versus pneumonia. Clinical correlation is recommended. 2. Small to moderate sized bilateral pleural effusions. 3. Cardiomegaly and coronary artery calcifications. Trell Stanton MD PE at Discharge General: NAD, AAOx3 Chest: Decreased breath sounds at the right base Cardiac: Regular Abd: +BS, soft ND/NT Ext: No edema, TONIA hose in place Hospital Course Pt developed ESRD in 01/16 and renal bx showed membranous glomerulonephritis. He has positive ANCA, Positive myeloperoxidase, which can be associated with small- vessel vasculitis, microscopic polyangiitis, polyarteritis nodosa, Churg- Jose Carlos syndrome, necrotizing and crescentic glomerulonephritis and occasionally granulomatosis with polyangiitis (Jazmine's). He has not done well and is frequently admitted. Recently had infected permcath tip and has been getting abx with HD. Also on his most recent admission he required thoracentesis x 4(2 on each side) with rapid reaccumulation of fluid. He gets at least 3L off with each hemodialysis but due to hypotension he has been unable to get more than that off at any time. His last Echo showed only diastolic dysfunction. He has recently had lung infiltrates and given courses of abx. Pt presented to the ED with hemoptysis, recurrent large effusions, and bilateral infiltrates right worse than left. Pt had a right sided thoracentesis on 12/13 with removal of 1.3L. Pt developed worsening hemoptysis. It was thought that DDx of pt's respiratory sx's seems to be pneumonia, pulmonary edema, and vasculitis related to the known positive ANCA(mpo). Pt was on Abx and Solu- Medrol 60mg IV BID initiated. Pulmonary was consulted. Pt noted to have low C3, C4 is normal. Gram stain and cx of sputum with heavy growth of normal respiratory donal at 24 hours. Pt didn't have much clinical improvement. Repeat CXR on 12/17 noted worsening pulmonary edema. This was reviewed by Pulmonary medicine who felt that the findings on CXR of non-cardiogenic pulmonary edema and the worsening findings did not portend well and the pt and family elected for Hospice and not to continue with HD as well. Pt Condition on Discharge: Deteriorating Discharge Disposition: Hospice/ Home Discharge Instructions DIET: Follow Instructions for: As Tolerated, No Restrictions Activities you can perform: Regular-No Restrictions New Medications: Hydromorphone (Dilaudid) 2 Mg Tab 2 MG PO Q3HR PRN Pain Management Days 14 Ref 0 TAB Hyoscyamine Odt (Levsin-SL) 0.125 Mg Subl 0.125 MG SL Q4H Gastrointestinal disorders Days 14 Ref 0 TAB.SL Lorazepam (Ativan) 1 Mg Tab 1 MG PO Q4H PRN for severe anxiety or dyspnea Days 14 Ref 0 TAB Discontinued Medications: Albuterol Neb (Albuterol Neb) 2.5 Mg/3 Ml Neb 2.5 MG NEB Q4HR NEB MIx Albuterol and Ipratropium nebulized medication together in nebulizer every 6 hours while awake for the next 5 days, then can be used as needed. PRN SHORTNESS OF BREATH #60 Ref 0 NEBULE Allopurinol (Allopurinol) 100 Mg Tab 100 MG PO DAILY Gout #[address] Ref [address] (Aspir-Low) 81 Mg Tabdr 81 MG PO DAILY Calcium Acetate (Phosphate Bin (Calcium Acetate) 667 Mg Cap 2 TAB PO TID Cholecalciferol (Vitamin D3) 1,000 Unit Tab 1000 UNITS PO DAILY Nutritional Supplement #1 Ref 0 BOTTLE Hydroxyzine HCl (Hydroxyzine HCl) 25 Mg Tab 25 MG PO DAILY Ref 0 TAB Ipratropium Neb (Ipratropium Neb) 0.5 Mg/2.5 Ml Amp 0.5 MG NEB Q4HR NEB Mix Albuterol and Ipratropium nebulized medication together in nebulizer every 6 hours while awake for the next 5 days, then can be used as needed. PRN SHORTNESS OF BREATH #180 Ref 0 NEBULE Levothyroxine (Levothyroxine) 25 Mcg Tab 25 MCG PO DAILY Thyroid #30 Ref 0 TAB Lorazepam (Lorazepam) 0.5 Mg Tab 0.5 MG PO DAILY PRN ANXIETY Ref 0 TAB Metoprolol Tartrate (Metoprolol Tartrate) 50 Mg Tab 50 MG PO BID #60 Ref 0 TAB Nifedipine ER 24 HR (Nifedipine ER 24 HR) 60 Mg Tab 60 MG PO DAILY #30 Ref 0 TAB Prednisone (Prednisone) 10 Mg Tab 10 MG PO DAILY Ref 0 TAB Pregabalin (Lyrica) 50 Mg Cap 50 MG PO BID #60 Ref 0 CAP Temazepam (Temazepam) 30 Mg Cap 30 MG PO HS PRN INSOMNIA #30 Ref 0 CAP Additional Information Patient examined. Assessment and plan formulated with Mitra Marsh PA-C. I agree with the above. Mitra Marsh Dec 17, 2016 15:09 Cayetano Chang DO Dec 22, 2016 06:46
[2016-12-17] MEDS ORDERED: ACETAMINOPHEN 325 MG TAB PO PRN (15:30)
[2016-12-17 16:00] VITALS: BP 116/55; PULSE 92; RESP 18; TEMP 98.2; O2SAT 94
[2016-12-18 15:55] LABS: MYELOPEROXIDASE 728.3 AI (<1.0); PROTEINASE-3 LESS THAN 1.0 AI (<1.0)
== END 2016-12-17 17:40 | disposition hospice, home (50) | DRG 186 ==
LOC: NEPC 09:20 → NEDA 12:27 → NEDH 17:36 → N04B 18:57
PROVIDERS: ADMIT Hospitalist; ATTEND Hospitalist
PROC: 0W993ZZ Drainage of Right Pleural Cavity, Percutaneous Approach (ICD-10-PCS; 2016-12-13)
PROC: 5A1D60Z (ICD-10-PCS; 2016-12-14)
PROC: 3E0F7GC Introduction of Other Therapeutic Substance into Respiratory Tract, Via Natural or Artificial Opening (ICD-10-PCS; principal; 2016-12-17)
DX: J90 Pleural effusion, not elsewhere classified (principal); N18.6 End stage renal disease; J18.9 Pneumonia, unspecified organism; M30.1 Polyarteritis with lung involvement [Churg-Strauss]; M31.30 Wegener's granulomatosis without renal involvement; I12.0 Hypertensive chronic kidney disease with stage 5 chronic kidney disease or end stage renal disease; I42.0 Dilated cardiomyopathy; R04.2 Hemoptysis; I27.2 Other secondary pulmonary hypertension; Z99.2 Dependence on renal dialysis; I25.10 Atherosclerotic heart disease of native coronary artery without angina pectoris; Z95.5 Presence of coronary angioplasty implant and graft; F41.9 Anxiety disorder, unspecified; F32.9 Major depressive disorder, single episode, unspecified; E78.00 Pure hypercholesterolemia, unspecified; I25.2 Old myocardial infarction; Z88.5 Allergy status to narcotic agent; Z88.8 Allergy status to other drugs, medicaments and biological substances; R09.02 Hypoxemia; Y95 Nosocomial condition; Z66 Do not resuscitate; Z90.49 Acquired absence of other specified parts of digestive tract; E03.9 Hypothyroidism, unspecified; E78.5 Hyperlipidemia, unspecified; D63.1 Anemia in chronic kidney disease; E87.5 Hyperkalemia; M19.90 Unspecified osteoarthritis, unspecified site; M50.90 Cervical disc disorder, unspecified, unspecified cervical region; E55.9 Vitamin D deficiency, unspecified; G89.29 Other chronic pain
CPT/HCPCS: 32555; 36600; 71010; 71250; 76937; 80048; 80053; 82550; 82805; 83605; 83690; 83735; 84484; 85025; 85610; 85730; 86021; 86160; 87040; 87070; 87205; 87804; 90935; 93005; 93970; 94150; 94640; 94664; 96374; 96375; C1729; J0456; J1170; J1980; J2543; J2930; J7030; J7050; J7512; Q4081